=== PATIENT | female | born 1980 | race Caucasian/White ===

== ENCOUNTER 2023-07-17 15:57 | Outpatient (REF) | payer OTHER, SELFPAY ==
--- OUTSIDE RECORDS SUMMARY | 2023-09-03 10:31 | XMS_ITS | CCD ---
Author Organization [facility] ion Partnership [facility] Care Team Providers Care Brief Writer Name Role Phone Alden Breaux Primary Care Provider [phone] SHIRLEY KING Referring Unavailable ALDEN BREAUX Primary Care Unavailable DYLAN PRUITT Admitting Unavailab DYLAN Meade Attending Unavailab ALDEN Pinzon Primary Care Unavailable WILDER ORTIZ V Admitting Unavailable WILDER ORTIZ V Attending Unavailable ALDEN BREAUX Primary Care Unavailable MISC, DOCTOR Admitting Unavailable MISC, DOCTOR Consulting Unavailable MISC, DOCTOR Attending Unavailable ALDEN BREAUX Primary Care Unavailable Latoya Beck Unavailable Alden Breaux MD Primary Care Provider LULA SHARPE Attending Unavailable ALDEN BREAUX Primary Care Unavailable DENG BALLARD Attending Unavailable DENG BALLARD Attending Unavailable NO FAMILY, PHYSICIAN Primary Care Provider Unava ilable Deng Ballard Attending Provider ElioEtienne jonesy Admitting Unavailable Deng Ballard Attending Unavailable NO FAMILY, PHYSICIAN Primary Care Unavailable Deng Ballard Attending Unavailable Etienne Ballardy Admitting Unavailable Allergies Allergy Classification Reported Allergen(s) Allergy Type Date of Onset Reaction(s) Facility (4 sources) Acetaminophen / oxyCODONE Drug Allergy 1 [place] (7 sources) Cephalexin Drug Allergy 0 Hives, Itching, Swelling [place] (7 sources) Codeine Drug Allergy 0 Nausea [place] Vomiting [place] (4 sources) Penicillins Propensity to adverse reactions to drug 0 Other (See Comments) [place] (4 sources) Propoxyphene Drug Allergy 0 Nausea [place] Vomiting [place] (1 source) Cephalexin Drug Allergy [facility] Repository (1 source) Codeine Drug Allergy [facility] (1 source) Penicillin Drug Allergy [facility] (1 source) Darvocet-N 100 Drug allergy (disorder) [facility] Rep[facility] (4 sources) Penicillin G Benzathine; Translations: [penicillin G benzathine] Drug allergy 1 [facility] (1 source) Cephalexin Drug Allergy 1 [facility] Repository (1 source) Codeine Drug Allergy 1 [facility] Repository Medications Current Medications Medication Drug [...] % 150 mL with bupivacaine-EPINEPHrine (MARCAINE-w/EPINEPHRINE) 0.5% -1:[id number] 40 mL, lidocaine-EPINEPHrine 50 mL (1 source) Start: 03-31-2020 End: 03-31-2020 sodium chloride 0.9 % 150 mL with bupivacaine-EPINEPHrine (MARCAINE-w/EPINEPHRINE) 0.5% -1:566696 40 mL, lidocaine-EPINEPHrine 50 mL Problems Active [...] Test Name Value Interpretation Reference Range Facility [facility] 07-27-2023 L Specimen: [id number] Received: 07/31/23 Status: KEREN Bonilla Num: [id number] Spec Type: Surgical Subm Dr: Deng Balalrd Tissues: A Fallopian Tube - Sterilization (BILATERAL FT/ESSURE COILS) Procedures: HE/2, Gross/Micro L2 Age/ Patient Sex Location Account Attending Physician ArturoMonika 42/F [place] [id number] Deng Ballard SPEC NUM: [id number] RECD: 07/31/23 STATUS: KEREN BONILLA NUM: [id number] DWAYNE: 07/27/[address]: Deng Ballard ENTERED: 07/31/[address] [facility] DR: Antony,Lab SPEC TYPE: Surgical DEPT: AMBER ELIAS ORDERED: HE/2, Gross/Micro L2 ORDERED: HE/2, Gross/Micro L2 Pathological Diagnosis Bilateral fallopian tubes, bilateral salpingectomy: -Bilateral fimbriated fallopian tubes without significant histopathological changes, except occasional small Walthard cysts in both tubes, and also with 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 Gross Description Received in formalin labeled with the patient's name, date of and bilateral fallopian tubes and Essure coils are 2 undesignated, fimbriated fallopian tubes (arbitrarily assigned as #1 and #2). Tube #1 is previously fragmented and collectively measures 6.7 cm in length and ranges from 0.5 to 1.0 cm in diameter. Tube #2 is intact and measures 5.7 cm in length and ranges from 0.5 to 0.7 cm in diameter. The serosal surface is paez-purple, smooth and contains multiple paratubal cysts ranging from 0.1 to 0.2 cm. 2 Essure coils are present, 1 within the lumen of the tube #2 and 1 free-floating within the specimen container ranging from 2.5 cm in length to less than 0.1 cm in diameter. Sectioning into each tube demonstrates an intact luminal center lined by paez mucosa. Garden Center Manager sections are submitted in A1 (tube 1) and A2 (tube #2). ---- Specimen: [id number] Received: 07/31/23 Status: KEREN Bonilla Num: [id number] Spec Type: Surgical Subm Dr: Deng Ballard Tissues: A Fallopian Tube - Sterilization (BILATERAL FT/ESSURE COILS) Procedures: HE/2, Gross/Micro L2 ---- Patient: Monika Morris [id number] (Continued) ---- Specimen: [id number] Received: 07/31/23 (Continued) Gross Description (Continued) Signed (signature on file) Chin-Adolfo Prasad, MD 08/01/23 1854 ---- Specimen: [id number] Received: 07/31/23 Status: KEREN Bonilla Num: [id number] Spec Type: Surgical Subm Dr: Deng Ballard Tissues: A Fallopian Tube - Sterilization (BILATERAL FT/ESSURE COILS) Procedures: HE/2, Gross/Micro L2 ---- Patient: Monika Morris [id number] (Continued) ---- Specimen: [id number] Received: 07/31/23 (Continued) Gross Description (Continued) TW CPT Codes 84451, 19741 ---- ---- Specimen: [id number] Received: 07/31/23 Status: KEREN Bonilla Num: [id number] Spec Type: Surgical Subm Dr: Deng Ballard Tissues: A Fallopian Tube - Sterilization (BILATERAL FT/ESSURE COILS) Procedures: JOE/Shayy, Gross/Micro L2 ---- Patient: Monika Morris [id number] (Continued) ---- Signed (signature on file) Kiara Prasad MD 08/01/231853 Normal [facility] 07-17-2023 L Specimen: [id number] Received: 07/18/23 Status: KEREN Bonilla Num: [id number] Spec Type: Surgical Subm Dr: Deng Ballard Tissues: A Endometrium - Biopsy (EMBX) Procedures: HE/2, Gross/Micro L4 Age/ Patient Sex Location Account Attending Physician Monika Morris 42/F [place] [id number] Deng Ballard SPEC NUM: [id number] RECD: 07/18/23 STATUS: KEREN BONILLA NUM: [id number] DWAYNE: 07/17/23 DR: Deng Ballard ENTERED: 07/18/23-8 [facility] [address]: Antony,Lab SPEC TYPE: Surgical DEPT: AMBER [...] history: Menorrhagia with irregular cycles CPT Codes 82847 ---- ---- Specimen: [id number] Received: 07/18/23 Status: KEREN Bonilla Num: [id number] Spec Type: Surgical Subm Dr: Deng Ballard Tissues: A Endometrium - Biopsy (EMBX) Procedures: HE/2, Gross/Micro L4 ---- Patient: Monika Morris [id number] (Continued) ---- Signed (signature on file) Criss Shirley MD 07/19/23 1419 Normal [facility] Provider Letteron 04-27-2023 Provider Letter April 27, 2023 MONIKA DURONFEE [address] [place] [address] : 1980 Dear Monika, We have been trying to reach you with no success. It is important that you return our call regarding your referral from Dr. Breaux to see Dr. Mcclain. Please call the office upon receiving this letter. Also, at the time of your call, please provide us with your current information. Thank you for your prompt attention to this matter. Sincerely, [facility] [phone] Normal [facility] Physician Referralon 024 Physician Referral [phone] [id number] Normal [facility] Basic Metabolic Profon 03-16 Anion gap [Moles/Vol] 7 mmol/L Low 9-17 [facility] Comment on above: Performed By: #### B DASH, KAYODE, HCG #### [facility] [address] [place] [address] Field Return Repairer: Wilder Galaviz MD BUN/CRE Ratio 35 High 9-20 [facility] Comment on above: Performed By: #### B DASH, CDP, HCG #### [facility] [address] [place] [address] Field Return Repairer: Wilder Galaviz MD Calcium [Mass/Vol] 9.3 mg/dL Normal 8.6-10.4 [facility] Comment on above: Performed By: #### B DASH CDP, HCG #### [facility] [address] [place], [place] [phone] Field Return Repairer: Wilder Galaviz MD Chloride [Moles/Vol] 101 mmol/L Normal 98-107 [facility] Comment on above: Performed By: #### B MP, CDP, HCG #### [facility] [address] [place] [address] Field Return Repairer: Wilder Galaviz MD CO2 [Moles/Vol] 26 mmol/L Normal 20-31 [facility] Comment on above: Performed By: #### B DASH CDP, HCG #### [facility] [address] [place], [place] [phone] Field Return Repairer: Wilder Galaviz MD Creatinine [Mass/Vol] 0.4 mg/dL Low 0.5-0.9 [facility] Comment on above: Performed By: #### B DASH CDP, HCG #### [facility] [address] [place], [place] [phone] Field Return Repairer: Wilder Galaviz MD GFR/1.73 sq M.predicted among non-blacks MDRD (S/P/Bld) [Vol rate/Area] mL/min/{1.73_m2} Normal >60 [facility] Comment on above: Result Comment: These results [...] renal tubular secretion. Performed By: #### B MP, CDP, HCG #### [facility] [address] [place], [place] [phone] Field Return Repairer: Wilder Galaviz MD Glucose [Mass/Vol] 99 mg/dL Normal 70-99 [facility] Comment on above: Performed By: #### B MP, CDP, HCG #### [facility] [address] [place], [place] [address]33[address] Field Return Repairer: Wilder Galaviz MD Potassium [Moles/Vol] 3.7 mmol/L Normal 3.7-5.3 [facility] Comment on above: Performed By: #### B MP, CDP, HCG #### [facility] [address] [place], [place] [address]197483 Field Return Repairer: Wilder Galaviz MD Sodium [Moles/Vol] 134 mmol/L Low 135-144 [facility] Comment on above: Performed By: #### B MP, CDP, HCG #### [facility] [address] [place], [place] [address] Field Return Repairer: Wilder Galaviz MD Urea nitrogen [Mass/Vol] 14 mg/dL Normal 6-20 [facility] Comment on above: Performed By: #### B MP, CDP, HCG #### [facility] [address] [place], [place] [address] Field Return Repairer: Wilder Galaviz MD CBC with Diffon 03-16-2023 Abs. Basophil 0.06 k/uL Normal 0.00-0.20 [facility] Comment on above: Performed By: #### B MP, CDP, HCG #### [facility] [address] [place] [address] Field Return Repairer: Wilder Galaviz MD Abs.Imm.Granulocy te <0.03 Normal 0.00-0.30 [facility] Comment on above: Performed By: #### B MP, CDP, HCG #### [facility] [address] [place], [place] [address] Field Return Repairer: Wilder Galaviz MD Abs.Neutrophil (Seg) 3.62 k/uL Normal 1.50-8.10 [facility] Comment on above: Performed By: #### B MP, CDP, HCG #### [address] [place], [place] [address] Field Return Repairer: Wilder Galaviz MD Basophils/100 WBC (Bld) 1 % Normal 0-2 [facility] Comment on above: Performed By: #### B MP, CDP, HCG #### [address] [place], [place] [address]783 Field Return Repairer: Wilder Galaviz MD Eosinophils (Bld) [#/Vol] 0.17 10*3/uL Normal 0.00-0.44 [facility] Comment on above: Performed By: #### B MP, CDP, HCG #### [address] [place], [place] [address] Field Return Repairer: Wilder Galaviz MD Eosinophils/100 WBC (Bld) 3 % Normal 1-4 [facility] Comment on above: Performed By: #### B DASH CDP, HCG #### [address] [place], [facility] Field Return Repairer: Wilder Galaviz MD Erythrocyte distribution width (RBC) [Ratio] 12.2 % Normal 11.8-14.4 [facility] Comment on above: Performed By: #### B DASH, CDP, HCG #### [address] [place], [facility]83 Field Return Repairer: Wilder Galaviz MD Hematocrit (Bld) [Volume fraction] 41.3 % Normal 36.3-47.1 [facility] Comment on above: Performed By: #### B MP, CDP, HCG #### [address] [place], [place] [address]83 Field Return Repairer: Wilder Galaviz MD Hemoglobin (Bld) [Mass/Vol] 13.6 g/dL Normal 11.9-15.1 [facility] Comment on above: Performed By: #### B MP, CDP, HCG #### [facility] [address] [place], [facility]83 Field Return Repairer: Wilder Galaviz MD Immature granulocytes/100 WBC (Bld) 0 % Normal 0 [facility] Comment on above: Performed By: #### B MP, CDP, HCG #### [address] [place], [place] [address] Field Return Repairer: Wilder Galaviz MD Lymphocytes (Bld) [#/Vol] 1.78 10*3/uL Normal 1.10-3.70 [facility] Comment on above: Performed By: #### B MP, CDP, HCG #### [address] [place] [id number] Field Return Repairer: Wilder Galaviz MD Lymphocytes/100 WBC (Bld) 28 % Normal 24-43 [facility] Comment on above: Performed By: #### B MP, CDP, HCG #### [address] [place], [facility]83 Field Return Repairer: Wilder Galaviz MD MCH (RBC) [Entitic mass] 30.8 pg Normal 25.2-33.5 [facility] Comment on above: Performed By: #### B MP, CDP, HCG #### [address] [place], [facility]83 Field Return Repairer: Wilder Galaviz MD MCHC (RBC) [Mass/Vol] 32.9 g/dL Normal 28.4-34.8 [facility] Comment on above: Performed By: #### B MP, CDP, HCG #### [address] [place] [address] Field Return Repairer: Wilder Galaviz MD MCV (RBC) [Entitic vol] 93.4 fL Normal 82.6-102.9 [facility] Comment on above: Performed By: #### B MP, CDP, HCG #### [facility] [address] [place], [place] [address] Field Return Repairer: Wilder Galaviz MD Monocytes (Bld) [#/Vol] 0.75 10*3/uL Normal 0.10-1.20 [facility] Comment on above: Performed By: #### B MP, CDP, HCG #### [facility] [address] [place], [place] [address] Field Return Repairer: Wilder Galaviz MD Monocytes/100 WBC (Bld) 12 % Normal 3-12 [facility] Comment on above: Performed By: #### B MP, CDP, HCG #### [address] [place], [place] [address] Field Return Repairer: Wilder Galaviz MD Neutrophil (Seg) 56 % Normal 36-65 [facility] Comment on above: Performed By: #### B MP, CDP, HCG #### [address] [place], [place] 3[address]683 Field Return Repairer: Wilder Galaviz MD NRBC Automated 0.0 per 100 WBC Normal 0.0 [facility] Comment on above: Performed By: #### B MP, CDP, HCG #### [address] [place], [place] [address] Field Return Repairer: Wilder Galaviz MD Platelet mean volume (Bld) [Entitic vol] 9.7 fL Normal 8.1-13.5 [facility] Comment on above: Performed By: #### B MP, CDP, HCG #### [address] [place], [place] [address]83 Field Return Repairer: Wilder Galaviz MD Platelets (Bld) [#/Vol] 372 10*3/uL Normal 138-453 [facility] Comment on above: Performed By: #### B MP, CDP, HCG #### [facility] [address] [place] [address] Dr[address] [place], [place] [address] Field Return Repairer: Wilder Galaviz MD RBC (Bld) [#/Vol] 4.42 10*6/uL Normal 3.95-5.11 [facility] Comment on above: Performed By: #### B MP, CDP, HCG #### [facility] [address] [place] [address] Field Return Repairer: Wilder Galaviz MD WBC (Bld) [#/Vol] 6.4 10*3/uL Normal 3.5-11.3 [facility] Comment on above: Performed By: #### B MP, CDP, HCG #### [facility] [address] [place], [place] [address]395383 Field Return Repairer: Wilder Galaviz MD CT ABDOMEN PELVIS W [...] is recommended. Bilateral contraceptive coils are noted. Peritoneum/Retroperito neum: No ascites or focal fluid collections. No [...] Kendall Rousseau MD 03/16/23 Final result Normal [facility] HCG Screen, Bloodon 03-16-19 HCG Screen, Blood Negative Normal NEG [facility] Comment on above: Result Comment: Spec imens with hCG levels near the threshold of the test (25 mIU/mL) may give a negative or indeterminate result. In such cases, another test should be performed with a new specimen in 48-72 hours. If early is suspected clinically in this setting, correlation with quantitative serum b-hCG level is suggested. [facility] has confirmed the use of plasma for this test. This has not been cleared or approved by the U.S. Food and Drug Administration. The FDA has determined that such clearance is not necessary. Performed By: #### B MP, CDP, HCG #### [facility] [address] [place] [address] Field Return Repairer: Wilder Galaviz MD XR FOOT RIGHT (MIN 3 VIEWS)o n 09-03-2021 No acute osseous or soft tissue abnormality. [facility] EXAMINATION: THREE XRAY VIEWS OF THE RIGHT FOOT 09/03/2021 11:36 am COMPARISON: None. HISTORY: ORDERING SYSTEM PROVIDED HISTORY: Pain FINDINGS: There is no acute osseous abnormality. The joint spaces are maintained. The surrounding soft tissues are unremarkable. [facility] Milton Garcia MD - 09/03/2021 EXAMINATION: THREE XRAY VIEWS OF THE RIGHT FOOT 09/03/2021 11:36 am COMPARISON: None. HISTORY: ORDERING SYSTEM PROVIDED HISTORY: Pain FINDINGS: There is no acute osseous abnormality. The joint spaces are maintained. The surrounding soft tissues are unremarkable. IMPRESSION: No acute osseous or soft tissue abnormality. [facility] Work Phone: Radiology Study observation (narrative) [facility] [employer] Work Phone: XR FOOT RIGHT (MIN 3 VIEWS)O rdered By: Milton Garcia on 09-03-2021 [facility] [employer] Work Phone: COVID Quick Testingon 2020 Result Negative [employer] Other POCT urine pregnancyon 03-31 Beta HCG ( test) Ql (U) Negative NEGATIVE [facility] [place] , [place] Comment on above: Specimens with hCG l evels near the threshold of the test (25 mIU/mL) may give a negative or indeterminate result. In such cases, another test should be performed with a new specimen in 48-72 hours. If early is suspected clinically in this setting, correlation with quantitative serum b-hCG level is suggested. TESTING PERFORMED AT [address] [address] Surgical Pathologyon 021 Surgical Pathology (NOTE) -- Diagnosis -- 1. RIGHT BREAST, REDUCTION MAMMOPLASTY:-BENIGN BREAST PARENCHYMA WITH FIBROCYSTIC CHANGES AND BENIGN SKIN.2. LEFT BREAST, REDUCTION MAMMOPLASTY:-BENIGN BREAST PARENCHYMA WITH FIBROCYSTIC CHANGES AND BENIGN SKIN. Wilder Galaviz M.D Electronically Signed Out chiqui/04/01/2020 Clinical Information Pre-op Diagnosis: BILATERAL MACROMASTIA Operative Findings: RIGHT BREAST; LEFT BREAST Operation Performed: BREAST MAMMOPLASTY REDUCTION Source of Specimen 1: RIGHT BREAST 2: LEFT BREAST Gross Description 1. MONIKA MORRIS, RIGHT BREAST Fragments of fibrofatty tissue and unremarkable paez skin, 552 grams and 17.0 x 16.0 x 5.0 cm in aggregate. Sectioning reveals no masses. Garden Center Manager sections 2cs. 2. STEFANIA MORRIS, LEFT BREAST Fragments of fibrofatty tissue and unremarkable paez skin, 1109 grams and 20.0 x 18.0 x 7.0 cm in aggregate. Sectioning reveals no masses. Garden Center Manager sections 2cs. tm Microscopic Description 1, 2. Microscopic examination performed. SURGICAL PATHOLOGY CONSULTATION Patient Name: MONIKA MORRIS [facility] Rec: [id number] Path Number: [id number] [facility] [employer] [facility] ANATOMIC PATHOLOGY [address] [place], [place] [address] Normal [facility] Comment on above: Performed By: #### P PPVS #### [address] [id number] Field Return Repairer: Brown Tatum MD [id number] 03-28-2020 SARS-CoV-2 Normal [facility] Comment on above: Performed By: #### C OVID #### [address] [address] Field Return Repairer: Brown Tatum MD SARS-CoV-2 Not Detected [facility] Comment on above: Result Comment: The specimen is NEGATIVE for SARS-CoV-2, the novel coronavirus associated with COVID-19. A negative result does not rule out COVID-19. Padmini SARS-CoV-2 for use on the Padmini [employer]88[employer] is a real-time RT-PCR test intended [...] this assay. Fact sheet for Healthcare Providers: https://www.fda.gov/media/984374/download Fact sheet for Patients: https://www.fda.gov/media/100697/download METHODOLOGY: RT-PCR Performed By: #### C OVID #### [address] [id number] Field Return Repairer: Brown Tatum MD SARS-CoV-2,Rapid Normal [facility] Comment on above: Performed By: #### C OVID #### [facility] [employer] [address] [place] [address] Field Return Repairer: Brown Tatum MD [id number] 03-27-2020 SARS-CoV-2 Source .NASOPHARYNGEAL SWAB Normal [facility] Comment on above: Performed By: #### C OVID #### [facility] [employer] [facility] [place], [place] [address]96[address] Field Return Repairer: Brown Tatum MD UA RANDOMon 03-22-2020 Bilirubin [Mass/Vol] Negative Normal NEGATIVE [facility] Comment on above: Performed By: #### U A #### [facility] [address] [place] [address] Liz Sylwia BLOOD LARGE Abnormal NEGATIVE [facility] Comment on above: Performed By: #### U A #### [facility] [address] [place] [address] Liz Sylwia Clarity (U) CLEAR Normal CLEAR [facility] Comment on above: Performed By: #### U A #### [facility] [address] [place] [address] Liz Sylwia Color (U) LT. YELLOW Normal YELLOW [facility] Comment on above: Performed By: #### U A #### [facility] [address] [place] [address] Liz Sylwia Glucose [Mass/Vol] Negative Normal NEGATIVE [facility] Comment on above: Performed By: #### U A #### [facility] [address] [place] [address] Liz Sylwia Ketones Ql (U) Negative Normal NEGATIVE [facility] Comment on above: Performed By: #### U A #### [facility] [address] [place] [address] Liz Sylwia Nitrite Ql (U) Negative Normal NEGATIVE [facility] Comment on above: Performed By: #### U A #### [facility] [address] [place] [address] Liz Sylwia pH (Bld) 6.0 Normal 5-9 [facility] Comment on above: Performed By: #### U A #### [facility] [address] [place], [place] [address] Liz Dao SPEC GRAVITY 1.020 Normal 1.005-<=1.025 [facility] Comment on above: Performed By: #### U A #### [facility] [address] [place], [place] [address] Liz Dao UA PROTEIN Negative Normal NEGATIVE/ TRACE [facility] Comment on above: Performed By: #### U A #### [facility] [address] [place], [place] [address] Liz Dao Urobilinogen Qn (U) 0.2 EU/dl Normal 0.2 - 1.0 [facility] Comment on above: Performed By: #### U A #### [facility] [address] [place], [place] [address] Liz Dao WBC (Bld) [#/Vol] Negative Normal NEGATIVE [facility] Comment on above: Performed By: #### U A #### [facility] [address] [place], [place] [address] Liz Dao Vital Signs Date Time Vital Sign Value Performing Clinician Facility 12-22-2020 12:15-0400 Body height 165.1 cm Latoya Ebony Other [facility] Other 12-22-2020 12:15-0400 Body mass index (BMI) [Ratio] 26.62 kg/m2 Latoya Ebony Other [facility] Other 12-22-2020 12:15-0400 Body temperature 100.5 [degF] Latoya Ebony Other [facility] Other 12-22-2020 12:15-0400 Body weight 72.58 kg Latoya Ebony Other [facility] Other 12-22-2020 12:15-0400 Respiratory rate 18 /min Latoya Ebony Other [facility] Other 12-22-2020 12:15-0400 SaO2% (BldA) [Mass fraction] 98 % Latoya Beck Other [facility] Other 03-31-2020 12:15-0500 BP Diastolic 94 mm[Hg] Dylan Edmond [place], [place] 03-31-2020 12:15-0500 BP Systolic 127 mm[facility]Hg] [facility] [place] 03-31-2020 12:15-0500 Pulse (Heart Rate) 80 /min [place], [place] 03-31-2020 12:15-0500 Pulse Oximetry 93 % [place], [place] 03-31-2020 11:17-0500 Body Temperature 97.81 [degF] [place] 03-31-2020 06:24-0500 Respiratory Rate 19 /min [facility] [place] 03-31-2020 06:10-0500 BMI (Body Mass Index) 29.95 kg/m2 [facility] [place] 03-31-2020 06:10-0500 Body weight 81.65 kg Dylan Edmond [place] 03-31-2020 06:10-0500 Height 165.1 cm [place], [place] Encounters Encounter Date Encounter Type Care Provider Facility Start: 07-27-2023 End: 07-27-2023 ambulatory Deng Elio Facility:[facility] Start: 07-27-2023 End: 07-27-[address] [facility] Work Phone: Start: 07-27-2023 End: 07-27-2023 Departed Referred PHYSICIAN NO [facility] Start: 07-17-2023 End: 07-17-2023 ambulatory DENG ELIO Not Available Start: 07-17-2023 End: 07-17-2023 ambulatory Deng Elio Facility:[facility] Start: 07-17-2023 End: 07-17-[address] [facility] Work Phone: Start: 07-17-2023 End: 07-17-2023 Departed Referred PHYSICIAN NO [facility] Start: 05-23-2023 End: 05-23-2023 ambulatory DENG BALLARD Not Available Start: 03-20-2023 ambulatory Facility:[facility] Start: 03-16-2023 End: 03-16-2023 Emergency department patient visit LUL[facility] Start: 04-22-2022 End: 05-10-2022 ambulatory Facility:[id number] Start: 03-29-2022 End: 04-12-2022 ambulatory Facility:[id number] Start: 09-03-2021 End: 09-05-2021 Subsequent hospital visit by physician Jack Arce Dr Room 4 [facility] Comment on above: Pain Start: 12-22-2020 (URG) Urgent Care Visit Latoya trujillo [facility] Start: 07-01-2020 Patient encounter procedure WILDER ORTIZ Facility:[facility] Start: 03-31-2020 End: 03-31-2020 Patient encounter procedure DYLAN PRUITT [facility] Start: 03-31-2020 End: 03-31-2020 Subsequent hospital visit by physician Dylan Pruitt Work Phone: [facility] [place] Comment on above: Acute post-operative pain (Primary Dx) Start: 03-27-2020 End: 03-28-2020 Patient encounter procedure SHIRLEY KING [facility] Start: 03-27-2020 End: 03-27-2020 Subsequent hospital visit by physician Juan Luis Garcíaid Screening Schedule CZ Covid Screening Comment on above: Preop testing (Prima ry Dx) Start: 03-26-2020 Encounter for other preprocedural examination WILDER ORTIZ [facility] Start: 03-22-2020 End: 03-23-2020 Patient encounter procedure DOCTOR VIVIAN Facility:[facility] Encounter for other preprocedural examination [facility] Procedures Date Procedure Procedure Detail Performing Clinician Start: 09-03-2021 Radex foot complete minimum 3 views Nadeen Rodriguez APRN - DENIS Work Phone: Start: 03-31-2020 Urine test visual color cmprsn meths Dylan Pruitt Work Phone: Plan of Treatment Date Care Activity Detail Author Start: 11-10-2021 Influenza vaccination [facility] ine (Season Ended[facility] [employer] Start: 04-05-2020 End: 04-05-2020 Office Visit 04/05/2020 Office Visit Plastic Surgery Dylan Pruitt MD [address] [id number] [facility] Start: 03-31-2020 End: 03-31-2020 Hospital Encounter [facility] [place] Comment on above: BREAST MAMMOPLASTY R EDUCTION Start: 03-27-2020 End: 03-26-2021 COVID-19 [place] Comment on above: Expected: 03/27/2020 , Expires: 03/26/2021 Once for 1 Occurrenc es starting 03/27/2020 until 03/27/2020 Start: 11-11-2019 Influenza vaccination Flu vaccine (# 1) [place] Start: 09-20-2011 Screening for malign ant neoplasm of cervix [facility] Start: 2002 Screening for malign ant neoplasm of cervix [facility] Start: 2000 DTaP/Tdap/Td vaccine (1 - Tdap) DTaP/Tdap/Td vaccine (1 - Tdap) [facility] Start: 09-20-1999 Hepatitis C screening Hepatitis C sc reen [facility] Start: 1996 HIV screening HIV screen [facility] [employer] Start: 1993 Depression Screen Depression Screen [facility] Start: 1986 COVID-19 Vaccine (1) COVID-19 Vaccin e (1) [facility] Start: 1982 Varicella vaccine (1 of 2 - 2-dose childhood series) Varicella vaccine (1 of 2 - 2-dose childhood series) [facility] Start: 1981 Hepatitis C screening Hepatitis C sc reen [place] End: 03-31-2020 Blood glucose - POCT Blood glucose - POCT Point of Care Testing Routine One Time for 1 Occurrences starting 03/31/2020 until 03/31/2020 [place], [place] Comment on above: One Time for 1 Occur rences starting 03/31/2020 until 03/31/2020 COVID-19 COVID-19 Lab Rou david 03/27/2020 1:13 PM EST [place], [place] Oxygen therapy [[facility] Data Set] Initiate Oxygen Therapy Protocol Respiratory Care Routine Daily until discontinued starting 03/31/2020 [place] Comment on above: Daily until disconti nued starting 03/31/2020 Phase I & II - meter ed glucose Phase I & II - metered glucose Point of Care Testing Routine As Needed until discontinued starting 03/31/2020 [place] Comment on above: As Needed until disc ontinued starting 03/31/2020 End: 03-31-2020 , urine POCT , urine POCT Point of Care Testing Routine One Time for 1 Occurrences starting 03/31/2020 until 03/31/2020 [place] Comment on above: One Time for 1 Occur rences starting 03/31/2020 until 03/31/2020 Surgical Pathology Surgical Path ology Lab Routine Release Upon Ordering for 1 Occurrences starting 03/31/2020 [place] Comment on above: Release Upon Orderin g for 1 Occurrences starting 03/31/2020 Payers Date Payer Category Payer Unknown [id number] [id number] 1981 Unknown [id number] [id number] 1981 Unknown [id number] 2.16.84 [id number] 1981 Unknown [id number] 2.16.84 [id number] 1981 Unknown [id number] 2.16.8 [id number] 1981 Unknown [id number] 2.16.84 [id number] 1981 Unknown [id number] 2.16.84 [id number] 1959 Private Health Insurance [id number] 1959 Self-pay Private Health Insurance [id number] Unknown [id number] 2.16.8 [id number] Unknown [id number] 2.16.8 [id number] Social History Date Type Detail Facility Start: 03-22-2020 End: 03-31-2020 Tobacco smoking status NHIS Former sm[place] Start: 07-18-2023 End: 12-30-2019 History of tobacco use Current [place] End: 12-30-2019 History of tobacco use Cigarette Smoker [place] Start: 03-22-2020 End: 03-31-2020 Cigarettes smoked current (pack per day) - Reported [place] Start: 03-22-2020 End: 03-31-2020 Tobacco use and exposure Never used [place] Start: 03-31-2020 End: 05-05-2020 Alcohol intake Current drinker of alcohol (finding) [place] Start: 11-25-2019 History SDOH Alcohol Frequency 3 [place] Start: 03-31-2020 Alcohol Comment social [place], [place] Start: 1980 Sex Assigned At Not on file [place] Exposure to SARS-CoV -2 (event) Not sure [place] Sex Assigned At Sex Assigned At Bir th [facility] Other Start: 03-31-2020 History SDOH Alcohol Comment social [employer] Phone: Start: 1980 Sex Assigned At Female F [facility] Evaluation note 12-22-2020 Note Date & Type [...] Patient care instructions given in writting by [facility] At Home document. Additional time spent conducting pre-visit phone call, screening for symptoms, instructions on social distancing, application and removal of PPE, and cleaning of examination room, equipment and supplies was preformed. Patient education given for testing methodology and results. Patient care instructions given in writting by [facility] Care At Home document. [facility] Other Evaluation note Note Date & Type Note Facility Evaluation note Diagnosis Pain Generalized pain documented in this encounter [facility] [employer] Phone: Evaluation note Note Date & Type Note Facility Evaluation note No assessment information availa [facility] Work Phone: History general Narrative - Reported Note Date & Type Note Facility History general Narrative - Reported Type Medical History chronic depression Surgical History C section Surgical History tonsillectomy Surgical History essure [facility] Other Discharge Instructions * Instructions* Terra Yatse RN - 03/31/2020 Breast Reduction and/or Mastopexy [...] ad fiber intake. You may also take [id number] stool softener. We have found that 2 [...] at the surgery center (3rd entrance) on ___[id number] by ___[phone] . Please stop any blood thinning medications [...] drive you home after your procedure. Your oil transport driver must be 18 years of age [...] Documents on File Type Date Recorded Patient Garden Center Manager Expl anation ACP-Advance Directive ACP-Power of Help Desk Associate Documents on File Type Date Recorded Patient Garden Center Manager Expl anation ACP-Advance Directive ACP-Power of Help Desk Associate Advance Directive Response Recorded Date/ Time Advance [...] To Contact Diagnoses Macromastia BILATERAL MACROMASTIA Procedures CA BREAST REDUCTION BREAST MAMMOPLASTY REDUCTION Dylan Pruitt MD [address] [place] [address] [facility] Ordered Prescriptions (unrec ognized section and [...] section and content) DATE CREATED AUTHOR 04/01/2020 [facility] DATE CREATED AUTHOR AUTHOR'S ORGANIZ ATION 04/02/2020 [facility] DATE CREATED AUTHOR AUTHOR'S ORGANIZ ATION 06/23/2020 [facility] DATE CREATED AUTHOR AUTHOR'S ORGANIZ ATION 05/11/2022 [facility] DATE CREATED AUTHOR AUTHOR'S ORGANIZ ATION 03/17/2023 [facility] DATE CREATED AUTHOR AUTHOR'S ORGANIZ ATION 04/29/2023 [place] [facility] DATE CREATED AUTHOR AUTHOR'S ORGANIZ ATION 07/19/2023 [facility] Special[facility] DATE CREATED AUTHOR AUTHOR'S ORGANIZ ATION 08/01/2023 [facility] Care Teams (unrecognized sec tion and content) Brief Writer Relationship Specialty Start Date End Date Alden Breaux MD [address] [address] PCP - General Family Medicine 03/24/20 Brief Writer Relationship Specialty Start Date End Date Alden Breaux MD [address] [id number] PCP - General Family Medicine 03/24/20 Team Status: Active Member Role Status Dates PHYSICIAN NO FAMILY Primary Care Provider Active Team Status: Inactive Member Role Status Dates PHYSICIAN NO FAMILY Primary Care Provider Active Start: July 17, 2023 End: July 17, 2023 Deng Ballard Attending Provider Active Start: Gutierrez degroot 2023 End: July 17, 2023 Team Status: Inactive Member Role Status Dates Deng Ballard Attending Provider Active Start: Gutierrez degroot 2023 End: July 27, 2023 Goals (unrecognized section and content) Goals [...] BE BASED ON THE PRIMARY CLINICAL RECORDS. [employer] provides no warranty or guarantee of the accuracy or completeness of information in this document.
== END 2023-07-19 15:58 | disposition home or self-care (01) ==
LOC: LAB 15:57
PROVIDERS: Visit Provider Obstetrics & Gynecology
DX: N92.1 Excessive and frequent menstruation with irregular cycle (principal); N85.8 Other specified noninflammatory disorders of uterus
CPT/HCPCS: 88305

== ENCOUNTER 2023-07-23 10:53 | Outpatient (OUT) | payer OTHER, SELFPAY ==
--- OUTSIDE RECORDS SUMMARY | 2023-07-23 11:16 | XMS_ITS | CCD ---
Author Organization [facility] Care Team Providers Care Insurance Follow Up Rep Name Role Phone Alden Meléndez Primary Care Provider SHIRLEY KING Referring Unavailable ALDEN MELÉNDEZ Primary Care Unavailable DYLAN PRUITT Admitting Unavailab DYLAN Meade Attending Unavailab ALDEN Pinzon Primary Care Unavailable WILDER ORTIZ V Admitting Unavailable WILDER ORTIZ V Attending Unavailable ALDEN MELÉNDEZ Primary Care Unavailable MISC, DOCTOR Admitting Unavailable MISC, DOCTOR Consulting Unavailable MISC, DOCTOR Attending Unavailable ALDEN MELÉNDEZ Primary Care Unavailable Latoya Beck Unavailable Alden Meléndez MD Primary Care Provider LULA SHARPE Attending Unavailable ALDEN MELÉNDEZ Primary Care Unavailable DENG BALLARD Attending Unavailable DENG BALLARD Attending Unavailable NO FAMILY, PHYSICIAN Primary Care Unavailable Deng Ballard Attending Unavailable Deng Ballard Admitting Unavailable NO FAMILY, PHYSICIAN Primary Care Provider Unava ilable Deng Ballard Attending Provider [phone] Allergies Allergy Classification Reported Allergen(s) Allergy Type Date of Onset Reaction(s) Facility (4 sources) Acetaminophen / oxyCODONE Drug Allergy 1 [place], [place] (6 sources) Cephalexin Drug Allergy 0 Hives, Itching, Swelling [place], [place] (6 sources) Codeine Drug Allergy 0 Nausea And Vomiting [place], [place] (4 sources) Penicillins Propensity to adverse reactions to drug 0 Other (See Comments) [place] (4 sources) Propoxyphene Drug Allergy 0 Nausea And Vomiting [facility], [place] (1 source) Cephalexin Drug Allergy [facility] (1 source) Codeine Drug Allergy [facility] (1 source) Penicillin Drug Allergy [facility] (1 source) Darvocet-N 100 Drug allergy (disorder) [facility] (3 sources) Penicillin G Benzathine; Translations: [penicillin G benzathine] Drug allergy 1 swelled [facility] (1 source) Cephalexin Drug Allergy 1 [facility] (1 source) Codeine Drug Allergy 1 [facility] Medications Current Medications Medication Drug Class(es) Dates Sig (Normalized) Sig (Original) acetaminophen 325 mg / HYDROcodone bitartrate 5 mg oral tablet (3 sources) Opioid Agonist Start: 03-31-2020 End: 04-07-2020 take 1 tablet by mouth every six hours as needed for pain, then take 1 tablet by mouth as needed for pain HYDROcodone-aceta minophen (NORCO) 5-325 MG per tablet Indications: Acute post-operative pain Take 1 tablet by mouth every 6 hours as needed for Pain for up to 7 days. Intended supply: 7 days. Take lowest dose possible to manage pain 28 tablet 0 03/31/2020 04/07/2020 Active Start: 11-06-2019 End: 03-31-2020 take 1 tablet by mouth three times daily as needed HYDROcodone-acetaminophen (NORCO) 10-325 MG per tablet TAKE 1 TABLET BY MOUTH THREE TIMES DAILY NEEDED 0 11/06/2019 03/31/2020 Discontinued (Stop Taking at Discharge) ALPRAZolam 0.5 mg oral tablet (4 sources) Benzodiazepine Start: 11-03-2019 take 1 tablet by mouth three times daily as needed ALPRAZolam (XANAX) 0.5 MG tablet TAKE 1 TABLET BY MOUTH THREE TIMES DAILY NEEDED 0 11/03/2019 Active 24 hr buPROPion hydrochloride 300 mg extended release oral tablet (5 sources) Aminoketone take 1 tablet by mouth once daily buPROPion (WELLBUTRIN XL) 300 MG extended release tablet Take 300 mg by mouth daily 0 Active Wellbutrin Activ e calcium chloride 0.0014 meq/ml / potassium chloride 0.004 meq/ml / sodium chloride 0.103 meq/ml / sodium lactate 0.028 meq/ml injectable solution (1 source) Start: 03-31-2020 lactated ringers infusion ciprofloxacin 500 mg oral tablet (1 source) Quinolone Antimicrobial Start: 03-31-2020 End: 04-05-2020 take 1 tablet by mouth twice daily ciprofloxacin (CIPRO) 500 MG tablet Take 1 tablet by mouth 2 times daily for 5 days 10 tablet 0 03/31/2020 04/05/2020 Active 1 ml diphenhydrAMINE hydrochloride 50 mg/ml cartridge (1 source) Histamine-1 Receptor Antagonist Start: 03-31-2020 End: 03-31-2020 diphenhydrAMINE (BENADRYL) injection 12.5 mg 2 ml fentaNYL 0.05 mg/ml injection (1 source) Opioid Agonist Start: 03-31-2020 fentaNYL (SUBLIMAZE) injection 25 mcg 1 ml hydrALAZINE hydrochloride 20 mg/ml injection (1 source) Arteriolar Vasodilator Start: 03-31-2020 hydrALAZINE (APRESOLINE) injection 5 mg 1 ml HYDROmorphone hydrochloride 1 mg/ml cartridge (1 source) Opioid Agonist Start: 03-31-2020 HYDROmorphone (DILAUDID) injection 0.5 mg ibuprofen 800 mg oral tablet (4 sources) Nonsteroidal Anti-inflammatory Drug Start: 10-30-2019 take 1 tablet by mouth three times daily as needed ibuprofen (ADVIL;MOTRIN) 800 MG tablet TAKE 1 TABLET BY MOUTH THREE TIMES DAILY NEEDED 0 10/30/2019 Active 1 ml meperidine hydrochloride 50 mg/ml injection (1 source) Opioid Agonist Start: 03-31-2020 meperidine (DEMEROL) injection 12.5 mg 30 ml morphine sulfate 1 mg/ml injection (1 source) Opioid Agonist Start: 03-31-2020 morphine (PF) injection 1 mg 1 ml promethazine hydrochloride 25 mg/ml injection (1 source) Phenothiazine Start: 03-31-2020 End: 03-31-2020 promethazine (PHENERGAN) injection 6.25 mg 1000 ml sodium chloride 9 mg/ml injection (3 sources) Start: 03-31-2020 0.9 % sodium chloride infusion Start: 03-31-2020 sodium chlorid e flush 0.9 % injection 10 mL Completed/Discontinued Medications Medication Drug Class(es) Dates Sig (Normalized) Sig (Original) gentian bridger 10 mg/ml topical solution (1 source) Start: 03-31-2020 End: 03-31-2020 gentian bridger 1 % topical solution 2 ml ondansetron 2 mg/ml injection (4 sources) Serotonin-3 Receptor Antagonist Start: 03-31-2020 End: 03-31-2020 ondansetron (ZOFRAN) injection 4 mg Start: 03-23-2020 take 1 tablet by andreas th once daily as needed for nausea ondansetron (ZOFRAN) 4 MG tablet Take 1 tablet by mouth daily as needed for Nausea or Vomiting 30 tablet 0 03/23/2020 Active sodium chloride 0.9 % 150 mL with bupivacaine-EPINEPHrine (MARCAINE-w/EPINEPHRINE) 0.5% -1:059850 40 mL, lidocaine-EPINEPHrine 50 mL (1 source) Start: 03-31-2020 End: 03-31-2020 sodium chloride 0.9 % 150 mL with bupivacaine-EPINEPHrine (MARCAINE-w/EPINEPHRINE) 0.5% -1:072979 40 mL, lidocaine-EPINEPHrine 50 mL Problems Active Problems Problem Classification Problem Date Documented Da te Episodic/Chronic Abdominal pain (1 source) Generalized abdominal pain; Translations: [Generalized abdominal pain] Onset: 03-16-2023 Episodic Nausea and vomiting (1 source) Nausea with vomiting, unspecified; Translations: [Nausea with vomiting, unspecified] Onset: 03-16-2023 Episodic Nonmalignant breast conditions (1 source) Mastodynia; Translations: [MASTODYNIA] Onset: 03-26-2020 Episodic Other gastrointestinal disorders (1 source) Diarrhea, unspecified; Translations: [Diarrhea, unspecified] Onset: 03-16-2023 Episodic Other nervous system disorders (1 source) Acute postoperative pain; Translations: [Acute post-operative pain] Episodic Residual codes; unclassified (1 source) Pain; Translations: [Pain, unspecified] Episodic Unclassified (1 source) Patient encounter status; Translations: [Preop testing] Past or Other Problems Problem Classification Problem Date Documented Da te Episodic/Chronic Immunizations and screening for infectious disease (1 source) Contact with and (suspected) exposure to other viral communicable diseases; Translations: [Contact with and (suspected) exposure to other viral communicable diseases Z20.828] Onset: 12-22-2020 Resolved: 12-22-2020 Episodic Other upper respiratory infections (1 source) Acute upper respiratory infection, unspecified; Translations: [Viral upper respiratory illness J06.9] Onset: 12-22-2020 Resolved: 12-22-2020 Episodic Results Test Name Value Interpretation Reference Range Facility [facility] 07-17-2023 L Specimen: [id number] Received: 07/18/23 Status: KEREN Dietrichandrei Num: [id number] Spec Type: Surgical Subm Dr: Deng Ballard Tissues: A Endometrium - Biopsy (EMBX) Procedures: HE/2, Gross/Micro L4 Age/ Patient Sex Location Account Attending Physician Monika Morris 42/F LABELL [id number] Deng Ballard SPEC NUM: [id number] RECD: 07/18/23 STATUS: KEREN DIETRICHAndrei NUM: [id number] DWAYNE: 07/17/[address]: Deng Ballard ENTERED: 07/18/23 [facility] DR: Antony,Lab SPEC TYPE: Surgical DEPT: AMBER ELIAS ORDERED: HE/2, Gross/Micro L4 ORDERED: HE/2, Gross/Micro L4 Pathological Diagnosis Endometrium, biopsy: Secretory endometrium. Gross Description Received in formalin, labeled with the patient's name, date of and embx are multiple paez tissue fragments admixed with mucus measuring in aggregate 2.1 x 1.5 x 0.3 cm, entirely submitted in A1. Clinical history: Menorrhagia with irregular cycles CPT Codes 98846 -------- -------- Specimen: [id number] Received: 07/18/23 Status: KEREN Bonilla Num: [id number] Spec Type: Surgical Subm Dr: Deng Ballard Tissues: A Endometrium - Biopsy (EMBX) Procedures: HE/2, Gross/Micro L4 -------- Patient: Monika Morris [id number] (Continued) -------- Signed (signature on file) Criss Shirley MD 07/19/23 1419 Normal [facility] Provider Letteron 04-27-2023 Provider Letter April 27, 2023 MONIKA MORRIS [address] [place] [address] : 1980 Dear Monika, We have been trying to reach you with no success. It is important that you return our call regarding your referral from Dr. Meléndez to see Dr. Mcclain. Please call the office upon receiving this letter. Also, at the time of your call, please provide us with your current information. Thank you for your prompt attention to this matter. Sincerely, [facility] [phone] Normal [facility] Physician Referralon 024 Physician Referral [phone] 1 [id number] Normal [facility] Basic Metabolic Profon 03-16 Anion gap [Moles/Vol] 7 mmol/L Low 9-17 [facility] Comment on above: Performed By: #### B MP, CDP, HCG #### [facility] [address] [place], [place] [phone] Proof Technician: Wilder Galaviz MD BUN/CRE Ratio 35 High 9-20 [facility] Comment on above: Performed By: #### B MP, CDP, HCG #### [facility] [address] [place], [place] [phone] Proof Technician: Wilder Galaviz MD Calcium [Mass/Vol] 9.3 mg/dL Normal 8.6-10.4 [facility] Comment on above: Performed By: #### B MP, CDP, HCG #### [facility] [address] [place], [place] [phone] Proof Technician: Wilder Galaviz MD Chloride [Moles/Vol] 101 mmol/L Normal 98-107 [facility] Comment on above: Performed By: #### B MP, CDP, HCG #### [facility] [address] [place] [address] Proof Technician: Wilder Galaviz MD CO2 [Moles/Vol] 26 mmol/L Normal 20-31 [facility] Comment on above: Performed By: #### B MP, CDP, HCG #### [facility] [address] [place], [place] [phone] Proof Technician: Wilder Galaviz MD Creatinine [Mass/Vol] 0.4 mg/dL Low 0.5-0.9 [facility] Comment on above: Performed By: #### B MP, CDP, HCG #### [facility] [address] [place], [place] [phone] Proof Technician: Wilder Galaviz MD GFR/1.73 sq M.predicted among non-blacks MDRD (S/P/Bld) [Vol rate/Area] mL/min/{1.73_m2} Normal >60 [facility] Comment on above: Result Comment: These results are not intended for use in patients <18 years of age. eGFR results are calculated without a race factor using the 2020 CKD-EPI equation. Careful clinical correlation is recommended, particularly when comparing to results calculated using previous equations. The CKD-EPI equation is less accurate in patients with extremes of muscle mass, extra-renal metabolism of creatine, excessive creatine ingestion, or following therapy that affects renal tubular secretion. Performed By: #### B KAYODE BOWLING, HCG #### [facility] [address] [place] [address] [place] [address] Proof Technician: Wilder Galaviz MD Glucose [Mass/Vol] 99 mg/dL Normal 70-99 [facility] Comment on above: Performed By: #### B DASH CDP, HCG #### [facility] [address] [place] [address] [place] [address] Proof Technician: Wilder Galaviz MD Potassium [Moles/Vol] 3.7 mmol/L Normal 3.7-5.3 [facility] Comment on above: Performed By: #### B DASH CDP, HCG #### [address] [place] [address] Proof Technician: Wilder Galaviz MD Sodium [Moles/Vol] 134 mmol/L Low 135-144 [facility] Comment on above: Performed By: #### B DASH CDP, HCG #### [facility] [address] [place] [address] Proof Technician: Wilder Galaviz MD Urea nitrogen [Mass/Vol] 14 mg/dL Normal 6-20 [facility] Comment on above: Performed By: #### B DASH, CDP, HCG #### [facility] [address] [place] [address] Proof Technician: Wilder Galaviz MD CBC with Diffon 03-16-2023 Abs. Basophil 0.06 k/uL Normal 0.00-0.20 [facility] Comment on above: Performed By: #### B MP, CDP, HCG #### [facility] [address] [place], [place] [phone] Proof Technician: Wilder Galaviz MD Abs.Imm.Granulocyt e <0.03 Normal 0.00-0.30 [facility] Comment on above: Performed By: #### B MP, CDP, HCG #### [facility] [address] [place], [place] [phone] Proof Technician: Wilder Galaviz MD Abs.Neutrophil (Seg) 3.62 k/uL Normal 1.50-8.10 [facility] Comment on above: Performed By: #### B MP, CDP, HCG #### [facility] [address] [place] [address] Dr[place], [place] [address] Proof Technician: Wilder Galaviz MD Basophils/100 WBC (Bld) 1 % Normal 0-2 [facility] Comment on above: Performed By: #### B MP, CDP, HCG #### [address] [place] [address] Proof Technician: Wilder Galaviz MD Eosinophils (Bld) [#/Vol] 0.17 10*3/uL Normal 0.00-0.44 [facility] Comment on above: Performed By: #### B MP, CDP, HCG #### [facility] [address] [place] [address] Proof Technician: Wilder Galaviz MD Eosinophils/100 WBC (Bld) 3 % Normal 1-4 [facility] Comment on above: Performed By: #### B MP, CDP, HCG #### [facility] [address] [place], [place] [phone] Proof Technician: Wilder Galaviz MD Erythrocyte distribution width (RBC) [Ratio] 12.2 % Normal 11.8-14.4 [facility] Comment on above: Performed By: #### B MP, CDP, HCG #### [facility] [address] [place], [place] [phone] Proof Technician: Wilder Galaviz MD Hematocrit (Bld) [Volume fraction] 41.3 % Normal 36.3-47.1 [facility] Comment on above: Performed By: #### B MP, CDP, HCG #### [facility] [address] [place], [place] [phone] Proof Technician: Wilder Galaviz MD Hemoglobin (Bld) [Mass/Vol] 13.6 g/dL Normal 11.9-15.1 [facility] Comment on above: Performed By: #### B MP, CDP, HCG #### [address] [place], [facility] Proof Technician: Wilder Galaviz MD Immature granulocytes/100 WBC (Bld) 0 % Normal 0 [facility] Comment on above: Performed By: #### B DASH, CDP, HCG #### [address] [place], [place] [phone] Proof Technician: Wilder Galaviz MD Lymphocytes (Bld) [#/Vol] 1.78 10*3/uL Normal 1.10-3.70 [facility] Comment on above: Performed By: #### B MP, CDP, HCG #### [facility] [address] [place], [place] [phone] Proof Technician: Wilder Galaviz MD Lymphocytes/100 WBC (Bld) 28 % Normal 24-43 [facility] Comment on above: Performed By: #### B MP, CDP, HCG #### [facility] [address] [place], [place] [address] Proof Technician: Wilder Galaviz MD MCH (RBC) [Entitic mass] 30.8 pg Normal 25.2-33.5 [facility] Comment on above: Performed By: #### B MP, CDP, HCG #### [facility] [address] [place], [place] [phone] Proof Technician: Wilder Galaviz MD MCHC (RBC) [Mass/Vol] 32.9 g/dL Normal 28.4-34.8 [facility] Comment on above: Performed By: #### B MP, CDP, HCG #### [facility] [address] [place] [address] Proof Technician: Wilder Galaviz MD MCV (RBC) [Entitic vol] 93.4 fL Normal 82.6-102.9 [facility] Comment on above: Performed By: #### B MP, CDP, HCG #### [address] [place], [place] [phone] Proof Technician: Wilder Galaviz MD Monocytes (Bld) [#/Vol] 0.75 10*3/uL Normal 0.10-1.20 [facility] Comment on above: Performed By: #### B MP, CDP, HCG #### [address] [place], [place] [phone] Proof Technician: Wilder Galaviz MD Monocytes/100 WBC (Bld) 12 % Normal 3-12 [facility] Comment on above: Performed By: #### B MP, CDP, HCG #### [facility] [address] [place], [place] [phone] Proof Technician: Wilder Galaviz MD Neutrophil (Seg) 56 % Normal 36-65 [facility] Comment on above: Performed By: #### B MP, CDP, HCG #### [facility] [address] [place] [address] Proof Technician: Wilder Galaviz MD NRBC Automated 0.0 per 100 WBC Normal 0.0 [facility] Comment on above: Performed By: #### B MP, CDP, HCG #### [facility] [address] [place], [place] [phone] Proof Technician: Wilder Galaviz MD Platelet mean volume (Bld) [Entitic vol] 9.7 fL Normal 8.1-13.5 [facility] Comment on above: Performed By: #### B MP, CDP, HCG #### [facility] [address] [place], [facility]83 Proof Technician: Wilder Galaviz MD Platelets (Bld) [#/Vol] 372 10*3/uL Normal 138-453 [facility] Comment on above: Performed By: #### B MP, CDP, HCG #### [address] [place] [address] Proof Technician: Wilder Galaviz MD RBC (Bld) [#/Vol] 4.42 10*6/uL Normal 3.95-5.11 [facility] Comment on above: Performed By: #### B MP, CDP, HCG #### [address] [place], [place] [phone] Proof Technician: Wilder Galaviz MD WBC (Bld) [#/Vol] 6.4 10*3/uL Normal 3.5-11.3 [facility] Comment on above: Performed By: #### B MP, CDP, HCG #### [address] [place], [facility]83 Proof Technician: Wilder Galaviz MD CT ABDOMEN PELVIS W IV CONTR Emilee 03-16-2023 CT ABDOMEN PELVIS W IV CONTRAST EXAMINATION: CT OF THE ABDOMEN AND PELVIS WITH CONTRAST 03/16/2023 8:20 pm TECHNIQUE: CT of the abdomen and pelvis was performed with the administration of intravenous contrast. Multiplanar reformatted images are provided for review. Automated exposure control, iterative reconstruction, and/or weight based adjustment of the mA/kV was utilized to reduce the radiation dose to as low as reasonably achievable. COMPARISON: None. HISTORY: ORDERING SYSTEM PROVIDED HISTORY: diffuse abdominal pain with multiple weeks of NVD TECHNOLOGIST PROVIDED HISTORY: diffuse abdominal pain with multiple weeks of NVD Decision Support Exception - unselect if not a suspected or confirmed emergency medical condition->Emergency Medical Condition (MA) FINDINGS: Lower Chest: Minimal dependent atelectasis. No focal consolidations or pleural effusions. Heart is normal in size. No pericardial effusion. Organs: Unremarkable liver, spleen, pancreas, gallbladder, adrenal glands and kidneys. GI/Bowel: Lack of oral contrast limits evaluation. No evidence for bowel obstruction or definite bowel wall thickening to unopacified large or small bowel. Appendix not definitely seen but no findings for acute appendicitis. Grossly unremarkable stomach. Pelvis: Unremarkable urinary bladder, uterus and right adnexa. Simple appearing left adnexal cyst measuring 4.0 x 2.0 cm. No follow-up imaging is recommended. Bilateral contraceptive coils are noted. Peritoneum/Retroperit oneum: No ascites or focal fluid collections. No intraperitoneal free air. No evidence for abdominal aortic aneurysm. No lymphadenopathy. Bones/Soft Tissues: No acute bone or soft tissue abnormality. No suspicious focal bony lesions. Multilevel degenerative changes to the lower lumbar spine. IMPRESSION: No acute findings to the abdomen or pelvis. No findings to explain the patient's symptoms. Interpreted by: Kendall Rousseau MD Signed by: Kendall Rousseau MD 03/16/23 Final result Normal [facility] HCG Screen, Bloodon 03-16-19 HCG Screen, Blood Negative Normal NEG [facility] Comment on above: Result Comment: Spec imens with hCG levels near the threshold of the test (25 mIU/mL) may give a negative or indeterminate result. In such cases, another test should be performed with a new specimen in 48-72 hours. If early is suspected clinically in this setting, correlation with quantitative serum b-hCG level is suggested. [facility] has confirmed the use of plasma for this test. This has not been cleared or approved by the U.S. Food and Drug Administration. The FDA has determined that such clearance is not necessary. Performed By: #### B MP, CDP, HCG #### [facility] [address] [place] [address] Proof Technician: Wilder Galaviz MD XR FOOT RIGHT (MIN 3 VIEWS)o n 09-03-2021 No acute osseous or soft tissue abnormality. [facility] RIS CONSOLIDATED EXAMINATION: THREE XRAY VIEWS OF THE RIGHT FOOT 09/03/2021 11:36 am COMPARISON: None. HISTORY: ORDERING SYSTEM PROVIDED HISTORY: Pain FINDINGS: There is no acute osseous abnormality. The joint spaces are maintained. The surrounding soft tissues are unremarkable. [facility] CONSOLIDATED Milton Garcia MD - 09/03/2021 EXAMINATION: THREE XRAY VIEWS OF THE RIGHT FOOT 09/03/2021 11:36 am COMPARISON: None. HISTORY: ORDERING SYSTEM PROVIDED HISTORY: Pain FINDINGS: There is no acute osseous abnormality. The joint spaces are maintained. The surrounding soft tissues are unremarkable. IMPRESSION: No acute osseous or soft tissue abnormality. [employer] Phone: Radiology Study observation (narrative) [employer] Phone: XR FOOT RIGHT (MIN 3 VIEWS)O rdered By: Milton Garcia on 09-03-2021 [facility] [employer] [facility] Work Phone: COVID Quick Testingon 2020 Result Negative [employer] Other POCT urine pregnancyon 03-31 Beta HCG ( test) Ql (U) Negative [place] Comment on above: Specimens with hCG l evels near the threshold of the test (25 mIU/mL) may give a negative or indeterminate result. In such cases, another test should be performed with a new specimen in 48-72 hours. If early is suspected clinically in this setting, correlation with quantitative serum b-hCG level is suggested. [place] [address] Surgical Pathologyon Surgical Pathology (NOTE) -- Diagnosis -- 1. RIGHT BREAST, REDUCTION MAMMOPLASTY:-BENIGN BREAST PARENCHYMA WITH FIBROCYSTIC CHANGES AND BENIGN SKIN.2. LEFT BREAST, REDUCTION MAMMOPLASTY:-BENIGN BREAST PARENCHYMA WITH FIBROCYSTIC CHANGES AND BENIGN SKIN. Wilder Galaviz M.D Electronically Signed Out chiqui04/01/2020 Clinical Information Pre-op Diagnosis: BILATERAL MACROMASTIA Operative Findings: RIGHT BREAST; LEFT BREAST Operation Performed: BREAST MAMMOPLASTY REDUCTION Source of Specimen 1: RIGHT BREAST 2: LEFT BREAST Gross Description 1. MONIKA MORRIS, RIGHT BREAST Fragments of fibrofatty tissue and unremarkable paez skin, 552 grams and 17.0 x 16.0 x 5.0 cm in aggregate. Sectioning reveals no masses. Gathering Machine Setter sections 2cs. 2. STEFANIA MORRIS, LEFT BREAST Fragments of fibrofatty tissue and unremarkable paez skin, 1109 grams and 20.0 x 18.0 x 7.0 cm in aggregate. Sectioning reveals no masses. Gathering Machine Setter sections 2cs. tm Microscopic Description 1, 2. Microscopic examination performed. SURGICAL PATHOLOGY CONSULTATION Patient Name: MONIKA MORRIS [facility] Rec: [id number] Path Number: [id number] [facility] CONSULTING PATHOLOGISTS [facility] [address] [place] [id number] [facility] Comment on above: Performed By: #### P PPVS #### [address] [address] Proof Technician: Brown Tatum MD [id number] 03-28-2020 SARS-CoV-2 Normal [facility] Comment on above: Performed By: #### C OVID #### [address] [address] Proof Technician: Brown Tatum MD SARS-CoV-2 Not Detected [facility] Comment on above: Result Comment: The specimen is NEGATIVE for SARS-CoV-2, the novel coronavirus associated with COVID-19. A negative result does not rule out COVID-19. Padmini SARS-CoV-2 for use on the Padmini [employer]8800 [employer] is a real-time RT-PCR test intended for the qualitative detection of nucleic acids from SARS-CoV-2 in clinician-collected nasal, nasopharyngeal, and oropharyngeal swab specimens from individuals who meet COVID-19 clinical and/or epidemiological criteria. Padmini SARS-CoV-2 is for use only under Emergency Use Authorization (EUA) in laboratories certified under Clinical Laboratory Improvement Amendments of 1988 (CLIA), 42 U.S.C. ?263a, that meet requirements to perform high or moderate complexity tests. An individual without symptoms of COVID-19 and who is not shedding SARS-CoV-2 virus would expect to have a negative (not detected) result in this assay. Fact sheet for Healthcare Providers: https://www.fda.gov/media/571924/download Fact sheet for Patients: https://www.fda.gov/media/696094/download METHODOLOGY: RT-PCR Performed By: #### C OVID #### [address] [address] Proof Technician: Brown Tatum MD SARS-CoV-2,Rapid Normal [facility] Comment on above: Performed By: #### C OVID #### [address] [address] Proof Technician: Brown Tatum MD [id number] 03-27-2020 SARS-CoV-2 Source .NASOPHARYNGEAL SWAB Normal [facility] Comment on above: Performed By: #### C OVID #### [address] [id number] Proof Technician: Brown Tatum MD UA RANDOMon 03-22-2020 Bilirubin [Mass/Vol] Negative Normal NEGATIVE [facility] Comment on above: Performed By: #### U A #### [facility] [address] [place] [address] Liz Sylwia BLOOD LARGE Abnormal NEGATIVE [facility] Comment on above: Performed By: #### U A #### [facility] [address] [place] [address] Liz Sylwia Clarity (U) CLEAR Normal CLEAR [facility] Comment on above: Performed By: #### U A #### [facility] [address] [place] [address] Liz Sylwia Color (U) LT. YELLOW Normal YELLOW [facility] Comment on above: Performed By: #### U A #### [facility] [address] [place] [address] Liz Sylwia Glucose [Mass/Vol] Negative Normal NEGATIVE [facility] Comment on above: Performed By: #### U A #### [facility] [address] [place], [place] [id number] Liz Sylwia Ketones Ql (U) Negative Normal NEGATIVE [facility] Comment on above: Performed By: #### U A #### [facility] [address] [place], [place] [id number] Liz Sylwia Nitrite Ql (U) Negative Normal NEGATIVE [facility] Comment on above: Performed By: #### U A #### [facility] [address] [place], [place] [id number] Liz Sylwia pH (Bld) 6.0 Normal 5-9 [facility] Comment on above: Performed By: #### U A #### [facility] [address] [place] [address] Liz Dao SPEC GRAVITY 1.020 Normal 1.005-<=1.025 [facility] Comment on above: Performed By: #### U A #### [facility] [address] [place] [address] Liz Sylwia UA PROTEIN Negative Normal NEGATIVE/ TRACE [facility] Comment on above: Performed By: #### U A #### [facility] [address] [place], [place] [id number] Lizfox Dao Urobilinogen Qn (U) 0.2 EU/dl Normal 0.2 - 1.0 [facility] Comment on above: Performed By: #### U A #### [facility] [address] [place], [place] [id number] [employer] Dao WBC (Bld) [#/Vol] Negative Normal NEGATIVE [facility] Comment on above: Performed By: #### U A #### [facility] [address] [place], [place] [id number] Liz Dao Vital Signs Date Time Vital Sign Value Performing Clinician Facility 12-22-2020 12:15-0400 Body height 165.1 cm Latoya Beck Other [employer] Other 12-22-2020 12:15-0400 Body mass index (BMI) [Ratio] 26.62 kg/m2 Latoya Beck Other [employer] Other 12-22-2020 12:15-0400 Body temperature 100.5 [degF] Latoya Beck Other [employer] Other 12-22-2020 12:15-0400 Body weight 72.58 kg Latoya Beck Other [employer] Other 12-22-2020 12:15-0400 Respiratory rate 18 /min Latoya Beck Other [employer] Other 12-22-2020 12:15-0400 SaO2% (BldA) [Mass fraction] 98 % Latoya Beck Other [employer] Other 03-31-2020 12:15-0500 BP Diastolic 94 mm[Hg] [facility] [place] 03-31-2020 12:15-0500 BP Systolic 127 mm[Hg] Dylan [facility] [place] 03-31-2020 12:15-0500 Pulse (Heart Rate) 80 /min Dylan [facility] [place] 03-31-2020 12:15-0500 Pulse Oximetry 93 % Dylan [facility] [place] 03-31-2020 11:17-0500 Body Temperature 97.81 [degF] [facility] [place] 03-31-2020 06:24-0500 Respiratory Rate 19 /min [facility] [place] 03-31-2020 06:10-0500 BMI (Body Mass Index) 29.95 kg/m2 Dylan [facility] [place] 03-31-2020 06:10-0500 Body weight 81.65 kg Dylan [facility] [place] 03-31-2020 06:10-0500 Height 165.1 cm Dylan Pruitt [facility] [place] , [place] Encounters Encounter Date Encounter Type Care Provider Facility Start: 07-17-2023 End: 07-17-2023 ambulatory DENG BALLARD Not Available Start: 07-17-2023 End: 07-17-2023 ambulatory PHYSICIAN NO [facility] Facility:[facility] Start: 07-17-2023 End: 07-17-2023 ambulatory PHYSICIAN NO [facility] Work Phone: Start: 07-17-2023 End: 07-17-2023 Departed Referred PHYSICIAN NO [facility] Start: 05-23-2023 End: 05-23-2023 ambulatory DENG BALLARD Not Available Start: 03-20-2023 ambulatory Facility: [facility] Start: 03-16-2023 End: 03-16-2023 Emergency department patient visit [facility] Start: 04-22-2022 End: 05-10-2022 ambulatory Facility:[id number] Start: 03-29-2022 End: 04-12-2022 ambulatory Facility:[id number] Start: 09-03-2021 End: 09-05-2021 Subsequent hospital visit by physician Jack Zaldivar 4 [facility] Radiology Comment on above: Pain Start: 12-22-2020 (URG) Urgent Care Visit Latoya trujillo [facility] Start: 07-01-2020 Patient encounter procedure WILDER ORTIZ Facility: Start: 03-31-2020 End: 03-31-2020 Patient encounter procedure DYLAN PRUITT [facility] Start: 03-31-2020 End: 03-31-2020 Subsequent hospital visit by physician Dylan Pruitt Work Phone: [facility] [place] Comment on above: Acute post-operative pain (Primary Dx) Start: 03-27-2020 End: 03-28-2020 Patient encounter procedure SHIRLEY KING [facility] Start: 03-27-2020 End: 03-27-2020 Subsequent hospital visit by physician [facility] Covid Screening Schedule [place] Covid Screening Comment on above: Preop testing (Prima ry Dx) Start: 03-26-2020 Encounter for other preprocedural examination [facility] Start: 03-22-2020 End: 03-23-2020 Patient encounter procedure DOCTOR [facility] Facility: Encounter for other preprocedural examination [facility] Procedures Date Procedure Procedure Detail Performing Clinician Start: 09-03-2021 Radex foot complete minimum 3 views Nadeen Rodriguez APRN - M[employer] Work Phone: Start: 03-31-2020 Urine test visual color cmprsn meths Dylan Pruitt Work Phone: Plan of Treatment Date Care Activity Detail Author Start: 11-10-2021 Influenza vaccination Flu vacc ine (Season Ended) [facility] Start: 04-05-2020 End: 04-05-2020 Office Visit 04/05/2020 Office Visit Plastic Surgery Dylan Pruitt MD [address] [place] [address] [phone] [facility] Start: 03-31-2020 End: 03-31-2020 Hospital Encounter [facility] [place] Comment on above: BREAST MAMMOPLASTY R EDUCTION Start: 03-27-2020 End: 03-26-2021 [facility] [place] Comment on above: Expected: 03/27/2020 , Expires: 03/26/2021 Once for 1 Occurrenc es starting 03/27/2020 until 03/27/2020 Start: 11-11-2019 Influenza vaccination Flu vaccine (# 1) [place] Start: 09-20-2011 [facility] Start: 2002 Scre[facility] for malign ant [facility]ix [facility] Start: 2000 DTaP/Tdap/Td vaccine (1 - Tdap) DTaP/Tdap/Td vaccine (1 - Tdap) [facility] Start: 09-20-1999 Hepatitis C screening Hepatitis C sc reen [facility] Start: 1996 HIV screening HIV screen [facility] Start: 1993 Depression Screen Depression Screen [facility] Start: 1986 COVID-19 Vaccine (1) COVID-19 Vaccin e (1) [facility] Start: 1982 Varicella vaccine (1 of 2 - 2-dose childhood series) Varicella vaccine (1 of 2 - 2-dose childhood series) [facility] Start: 1981 Hepatitis C screening Hepatitis C sc reen [place], [place] End: 03-31-2020 Blood glucose - POCT Blood glucose - POCT Point of Care Testing Routine One Time for 1 Occurrences starting 03/31/2020 until 03/31/2020 [place], [place] Comment on above: One Time for 1 Occur rences starting 03/31/2020 until 03/31/2020 COVID-19 COVID-19 Lab Rou david 03/27/2020 1:13 PM EST [place], [place] Oxygen therapy [[facility] Data Set] Initiate Oxygen Therapy Protocol Respiratory Care Routine Daily until discontinued starting 03/31/2020 [place] Comment on above: Daily until disconti nued starting 03/31/2020 Phase I & II - meter ed glucose Phase I & II - metered glucose Point of Care Testing Routine As Needed until discontinued starting 03/31/2020 [place] Comment on above: As Needed until disc ontinued starting 03/31/2020 End: 03-31-2020 , urine POCT , urine POCT Point of Care Testing Routine One Time for 1 Occurrences starting 03/31/2020 until 03/31/2020 [place] Comment on above: One Time for 1 Occur rences starting 03/31/2020 until 03/31/2020 Surgical Pathology Surgical Path ology Lab Routine Release Upon Ordering for 1 Occurrences starting 03/31/2020 [place] Comment on above: Release Upon Orderin g for 1 Occurrences starting 03/31/2020 Payers Date Payer Category Payer Unknown [id number] [id number] [id number] 1980 Unknown [id number] [id number] 1981 Unknown [id number] 2.16.84 [id number] 1981 Unknown [id number] 2.16.84 [id number] 1981 Unknown [id number] 2.16.8 [id number] 1981 Unknown [id number] 2.16.84 [id number] 1981 Unknown [id number] 2.16.84 [id number] 1959 Private Health Insurance [id number] 1958 Self-pay Private Health Insurance [id number] Unknown [id number] [id number] [id number] Social History Date Type Detail Facility Start: 03-22-2020 End: 03-31-2020 Tobacco smoking status NHIS Former smoker [place], [place] Start: 07-18-2023 End: 12-30-2019 History of tobacco use Current sm[place] End: 12-30-2019 History of tobacco use Cigarette [place] Start: 03-22-2020 End: 03-31-2020 Cigarettes smoked current (pack per day) - Reported [place] Start: 03-22-2020 End: 03-31-2020 Tobacco use and exposure Never used [place] Start: 03-31-2020 End: 05-05-2020 Alcohol intake Current drinker of alcohol (finding) [place] Start: 11-25-2019 History SDOH Alcohol Frequency 3 [place] Start: 03-31-2020 Alcohol Comment social [place], [place] Start: 1980 Sex Assigned At Not on file [facility] [place] Exposure to SARS-CoV -2 (event) Not sure [place] Sex Assigned At Sex Assigned At Bir th [employer] Other Start: 03-31-2020 History SDOH Alcohol Comment social [facility] [employer] Phone: Start: 1980 Sex Assigned At Female F [facility] Evaluation note 12-22-2020 Note Date & Type Note Facility 12-22-2020 Evaluation note Encounter Date Diagnosis Assessment Notes Dec, Contact with and (suspected) exposure to other viral communicable diseases (ICD-10 - Z20.828) Dec, Viral upper respiratory illness (ICD-10 - J06.9) Dec, Other Additional time spent conducting pre-visit phone call, screening for symptoms, instructions on social distancing, application and removal of PPE, and cleaning of examination room, equipment and supplies was preformed. Patient education given for testing methodology and results. Patient care instructions given in writting by [facility] document. Additional time spent conducting pre-visit phone call, screening for symptoms, instructions on social distancing, application and removal of PPE, and cleaning of examination room, equipment and supplies was preformed. Patient education given for testing methodology and results. Patient care instructions given in writting by [facility] document. [employer] Other Evaluation note Note Date & Type Note Facility Evaluation note Diagnosis Pain Generalized pain documented in this encounter [facility] [employer] Phone: Evaluation note Note Date & Type Note Facility Evaluation note No assessment information availa [facility] Work Phone: History general Narrative - Reported Note Date & Type Note Facility History general Narrative - Reported Type Medical History chronic depression Surgical History C section Surgical History tonsillectomy Surgical History essure [employer] Other Discharge Instructions * Instructions* Terra Yates RN - 03/31/2020 Breast Reduction and/or Mastopexy After your surgery: You will feel wobbly and drowsy from all the anesthesia and medication. Please go home and rest. You will need an adult to drive you home and stay with you the first 24-48 hours after surgery. Drink plenty of fluids to replace those lost during surgery. Your first meal should be a bland meal such as toast, soup, Jell-o, tea, etc. Activity: No driving for two to three weeks or while taking pain medication. No strenuous activities such as tennis, golf, bowling, swimming, or exercise classes for 6 weeks. Sleep in a recliner, or with upper body elevated, supported by pillows. Have help when standing, walking, and showering for the first few days. We do encourage you to pump your legs while resting and to move around to promote circulation. Restrictions Week one and two: Do not lift anything heavier than a spoon or fork, do not raise your arms above your head, lift, push, or pull. Week three: You may lift up to 5 pounds. Week Four: You may lift up to 10 pounds. Week five: You may lift up to 15 pounds. Week six: You may lift up to 20 pounds. After this week is completed, no restrictions; resume normal activity and you may slowly begin to exercise. Support Bra and Dressings: You will be wearing a surgical support bra day and night (02/10) for six weeks. Under the bra will be gauze pads. After we change them for the first time in the office, you shouldchange them everyday until healed. Under the gauze pads will be surgical tape that is placed over the ends of the suture to hold them in place. Do not remove these. If they fall off on their own, you can leave them off or cover them with small Band-aids if the ends are getting caught in the bra. The sutures (stiches) will be removed in two to three weeks. You may remove the support bra for showering, to check your breasts, or to wash the bra. Three times a day, open the bra to check for excessive discoloration, swelling, redness, or blistering of the skin. Call the surgeons office if you notice this. No under wire bras are to be worn for one year after your surgery. Drains: You may have two bulb drains, one on each side of your breasts. These are to collect extra drainageunder your skin and will be in place for 3-10 days. To empty the bulb, open the tab, hold the bulb at eye level and read the amount of drainage. Empty the drain and squeeze the bulb to decompress it and place the tab back on top. Empty the drain at least two times a day or when it becomes half full. The drain bulb needs to be compressed in order for it to work. Record the amount of drainage on the back of this sheet and take with you to the office appointment. Showering: You may shower 24 hours after the last drain has been removed. Shower using warm, not hot water, deflecting the water from hitting the breast area. Pat breast and nipple area dry. Do not rub. No bathtubs, whirlpools, lakes etc. Until your incisions are completely healed. Medications: Take your antibiotics as prescribed until completely finished. Take with feed or crackers if needed. You will have the most discomfort the first week after surgery. Take the pain medication as prescribed. If the medications cause constipation increase your fluid ad fiber intake. You may also take tjmz-osw-zdswriv stool softener. We have found that 2 sugar-free peppermint patties sometime help with constipation. Do not take aspirin products, Ibuprofen or Motrin for two weeks before and after your surgery. Tylenol or Acetaminophen is permitted instead of your pain medication. Do not take Tylenol with any prescription pain medication at the same time. Office visits and work: We suggest that you take pain medication before your first few office visits. We will see you in the office within one week of your surgery, in 10-14 days, then as the doctor schedules. Be sure to stop in [place] for ur special products for you. You will return to work in one to three weeks depending on the level of activity for your job. documented in this encounter History of Present Illness * Roseann Gilbert RN - 03/31/2020 11:45 AM EST Discharge inst discussed with family and pt, scripts per pharmacy. Questions answered * Mitchell Rebollar RN - 03/31/2020 5:52 AM EST Urine hcg negative. * Dixon Garvin RN - 03/22/2020 11:12 AM EST Preoperative Instructions: Stop eating solid foods at midnight the night prior to your surgery. Stop drinking clear liquids at midnight the night prior to your surgery. Arrive at the surgery center (3rd entrance) on ___1-12-26 by ___0600 . Please stop any blood thinning medications as directed by your surgeon or prescribing physician. Failure to stop certain medications may interfere with your scheduled surgery. These may include: Aspirin, Coumadin, Plavix, NSAIDS (Motrin, Aleve, Advil, Mobic, Celebrex), Eliquis, Pradaxa, Xarelto, Fish oil, and herbal supplements. You may continue the rest of your medications through the night before surgery unless instructed otherwise. Day of surgery please take only the following medication(s) with a small sip of water:Welbutrin Please shower with antibacterial soap and water the night before and the morning of surgery. Reminders: -If you are going home the day of your procedure, you will need a family member or friend to stay during the procedure and drive you home after your procedure. Your driver/sales workers must be 18 years of age or older and able to sign off on your discharge instructions. -If you are going home the same day of your surgery, someone must remain with you for the first 24 hours after your surgery if you receive sedation or anesthesia. 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 ACP-Advance Directive ACP-Power of Durability Engineer Advance Directive Response Recorded Date/ Time Advance Directives No July 18, 2023 12:27pm Summary Purpose Family History No Family History Records FoundNo Family History Records FoundNo Family History Records FoundNo Family History Records FoundNo Family History Records FoundNo Family History Records FoundNo Family History Records FoundNo Family History Records Found Additional Source Comments Reason for Visit (unrecogniz ed section and content) Status Reason Specialty Diagnoses / Procedures Referre d By Contact Referred To Contact Diagnoses Macromastia BILATERAL MACROMASTIA Procedures AK BREAST REDUCTION BREAST MAMMOPLASTY REDUCTION Dylan Pruitt MD [address] [place] [address] [facility] Ordered Prescriptions (unrec ognized section and content) Prescription Sig Dispensed Refills Start Date End Da te HYDROcodone-acetaminophe n (NORCO) 5-325 MG per tabletIndications:Acute post-operative pain Take 1 tablet by mouth every 6 hours as needed for Pain for up to 7 days. Intended supply: 7 days. Take lowest dose possible to manage pain 28 tablet 0 03/31/2020 04/07/2020 ciprofloxacin (CIPRO) 500 MG tablet Take 1 tablet by mouth 2 times daily for 5 days 10 tablet 0 03/31/2020 04/05/2020 INFORMATION SOURCE (unrecogn ized section and content) DATE CREATED AUTHOR 04/01/2020 [facility] DATE CREATED AUTHOR AUTHOR'S ORGANIZ ATION 04/02/2020 [facility] DATE CREATED AUTHOR AUTHOR'S ORGANIZ ATION 06/23/2020 [facility] DATE CREATED AUTHOR AUTHOR'S ORGANIZ ATION 05/11/2022 [facility] DATE CREATED AUTHOR AUTHOR'S ORGANIZ ATION 03/17/2023 [facility] DATE CREATED AUTHOR AUTHOR'S ORGANIZ ATION 04/29/2023 [facility] DATE CREATED AUTHOR AUTHOR'S ORGANIZ ATION 07/19/2023 [facility] EPIC DATE CREATED AUTHOR AUTHOR'S ORGANIZ ATION 07/20/2023 [facility] Care Teams (unrecognized sec tion and content) Insurance Follow Up Rep Relationship Specialty Start Date End Date Alden Meléndez MD [id number] [address] [address] PCP - General Family Medicine 03/24/20 Insurance Follow Up Rep Relationship Specialty Start Date End Date Alden Meléndez MD [address] [place] [id number] PCP - General Family Medicine 03/24/20 Team Status: Active Member Role Status Dates PHYSICIAN NO FAMILY Primary Care Provider Active Team Status: Inactive Member Role Status Dates PHYSICIAN NO FAMILY Primary Care Provider Active Start: July 17, 2023 End: July 17, 2023 Deng Ballard Attending Provider Active Start: Gutierrez degroot 2023 End: July 17, 2023 Goals (unrecognized section and content) Goals may be documented in a n alternate section FOR RECORDS PERTAINING TO PATIENTS WHO ARE OR HAVE BEEN ENROLLED IN A CHEMICAL DEPENDENCY/SUBSTANCEABUSE PROGRAM, SOME INFORMATION MAY BE OMITTED. This clinical summary was aggregated from multiple sources. Caution should be exercised in using it in the provision of clinical care. This summary normalizes information from multiple sources, and as a consequence, information in this document may materially change the coding, format and clinical context of patient data. In addition, data may be omitted in some cases. CLINICAL DECISIONS SHOULD BE BASED ON THE PRIMARY CLINICAL RECORDS. [employer] provides no warranty or guarantee of the accuracy or completeness of information in this document.
== END 2023-07-23 10:54 | disposition home or self-care (01) ==
LOC: PST 10:57
PROVIDERS: Visit Provider Obstetrics & Gynecology
DX: Z01.818 Encounter for other preprocedural examination (principal); Z30.2 Encounter for sterilization; N92.0 Excessive and frequent menstruation with regular cycle; N93.9 Abnormal uterine and vaginal bleeding, unspecified; R10.2 Pelvic and perineal pain

== ENCOUNTER 2023-07-27 07:18 | Day surgery (SDC) | payer OTHER, SELFPAY ==
[2023-07-23 11:39] VITALS: BP 128/76; PULSE 80; TEMP 36.6; O2SAT 95; BMI 25.2
[2023-07-27] VITALS (18 sets, daily range): BP systolic 84–124; BP diastolic 51–71; PULSE 59–73; TEMP 36.2–36.6; O2SAT 95–99; BMI 25.0
--- NOTE | 2023-07-27 07:15 | XR_ITS ---
The [address] [address] Patient Name: ДМИТРИЙ NAVARRO MRN: [id number] date: 1980 Sex: F Assigned Patient Location: SURGOUT Current Patient Location: [facility] Accession/Order Number: [id number] Exam Date: 07/27/2023 07:30 Report Date: 07/27/2023 07:47 At the request of: MAURICE MILLARD Procedure: XR chest 1V EXAMINATION: XR chest 1V HISTORY: pre op COMPARISON: No relevant comparison available. TECHNIQUE: Portable FINDINGS: LUNGS: No significant pulmonary parenchymal abnormalities. VASCULATURE: No increased pulmonary vasculature. PLEURA: No pneumothorax, effusion, or pleural thickening. CARDIAC: No cardiomegaly or cardiac silhouette abnormality. MEDIASTINUM: No visible mass or adenopathy. BONES: No fracture or visible bone lesion. OTHER: Negative. XR/XR chest 1V IMPRESSION: No acute cardiopulmonary process Electronically authenticated by: WILDER ORTIZ Date: 07/27/2023 07:47
--- OUTSIDE RECORDS SUMMARY | 2023-07-27 07:27 | XMS_ITS | CCD ---
Author Organization [facility] Care Team Providers Care Board Attendant Name Role Phone Alden Meléndez Primary Care [...] Unavailable Alden Meléndez MD Primary Care Provider [phone] LULA SHARPE Attending Unavailable ALDEN MELÉNDEZ Primary Care Unavailable DENG BALLARD Attending Unavailable DENG BALLARD Attending Unavailable NO FAMILY, PHYSICIAN Primary Care Unavailable Deng Ballard Attending Unavailable Deng Ballard Admitting Unavailable NO FAMILY, PHYSICIAN Primary Care Provider Unava ilable Deng Ballard Attending Provider Allergies Allergy Classification Reported Allergen(s) Allergy Type Date of Onset Reaction(s) Facility (4 sources) Acetaminophen / oxyCODONE Drug Allergy 1 [place], [place] (6 sources) Cephalexin Drug Allergy 0 Hives, Itching, Swelling [place], [place] (6 sources) Codeine Drug Allergy 0 Nausea And Vomiting [place] (4 sources) Penicillins Propensity to adverse reactions to drug 0 Other (See Comments) [place] (4 sources) Propoxyphene Drug Allergy 0 Nausea And Vomiting [facility], [place] (1 source) Cephalexin Drug Allergy [facility] (1 source) Codeine Drug Allergy [facility] (1 source) Penicillin Drug Allergy [facility] (1 source) Darvocet-N 100 Drug allergy (disorder) [facility] (3 sources) Penicillin G Benzathine; Translations: [penicillin G benzathine] Drug allergy 1 swelled [facility] (1 source) Cephalexin Drug Allergy 1 [facility] (1 source) Codeine Drug Allergy 1 [facility] Medications Current Medications Medication Drug [...] % 150 mL with bupivacaine-EPINEPHrine (MARCAINE-w/EPINEPHRINE) 0.5% -1:784375 40 mL, lidocaine-EPINEPHrine 50 mL (1 source) Start: 03-31-2020 End: 03-31-2020 sodium chloride 0.9 % 150 mL with bupivacaine-EPINEPHrine (MARCAINE-w/EPINEPHRINE) 0.5% -1:554800 40 mL, lidocaine-EPINEPHrine 50 mL Problems Active [...] Test Name Value Interpretation Reference Range Facility [facility] 07-17-2023 L Specimen: [id number] Received: 07/18/23 Status: KEREN Dietrichandrei Num: [id number] Spec Type: Surgical Subm Dr: Deng Ballard Tissues: A Endometrium - Biopsy (EMBX) Procedures: HE/2, Gross/Micro L4 Age/ Patient Sex Location Account Attending Physician Monika Morris 42/F [place] [id number] Deng Ballard SPEC NUM: [id number] RECD: 07/18/23 STATUS: KEREN DIETRICHAndrei NUM: [id number] DWAYNE: 07/17/[address]: Deng Ballard ENTERED: 07/18/23 [facility] DR: Antony,Lab SPEC TYPE: Surgical DEPT: AMBER [...] history: Menorrhagia with irregular cycles CPT Codes 81920 -------- -------- Specimen: [id number] Received: 07/18/23 Status: KEREN Bonilla Num: [id number] Spec Type: Surgical Subm Dr: Deng Ballard Tissues: A Endometrium - Biopsy (EMBX) Procedures: HE/2, Gross/Micro L4 -------- Patient: Monika Morris [id number] (Continued) -------- Signed (signature on file) Criss Shirley MD 07/19/23 1419 Normal [facility] Provider Letteron 04-27-2023 Provider Letter April 27, 2023 MONIKA MORRIS [address] [place] [address] : 1980 Dear Monika, We have been [...] your prompt attention to this matter. Sincerely, [facility] [phone] [facility] Physician Referralon 024 Physician Referral [phone] [id number] [facility] Basic Metabolic Profon 03-16 Anion gap [Moles/Vol] 7 mmol/L Low 9-17 [facility] Comment on above: Performed By: #### B MP, CDP, HCG #### [facility] [address] [place], [place] [id number] License Inspector: Wilder Galaviz MD BUN/CRE Ratio 35 High 9-20 [facility] Comment on above: Performed By: #### B MP, CDP, HCG #### [facility] [address] [place], [place] [id number] License Inspector: Wilder Galaviz MD Calcium [Mass/Vol] 9.3 mg/dL Normal 8.6-10.4 [facility] Comment on above: Performed By: #### B MP, CDP, HCG #### [facility] [address] [place], [place] 469[address]83 License Inspector: Wilder Galaviz MD Chloride [Moles/Vol] 101 mmol/L Normal 98-107 [facility] Comment on above: Performed By: #### B MP, CDP, HCG #### [facility] [address] [place] [address] License Inspector: Wilder Galaviz MD CO2 [Moles/Vol] 26 mmol/L Normal 20-31 [facility] Comment on above: Performed By: #### B MP, CDP, HCG #### [facility] [address] [place], [place] 0748383 License Inspector: Wilder Galaviz MD Creatinine [Mass/Vol] 0.4 mg/dL Low 0.5-0.9 [facility] Comment on above: Performed By: #### B MP, CDP, HCG #### [facility] [address] [place], [place] [id number] License Inspector: Wilder Galaviz MD GFR/1.73 sq M.predicted among non-blacks MDRD (S/P/Bld) [Vol rate/Area] mL/min/{1.73_m2} Normal >60 [facility] Comment on above: Result Comment: These results [...] By: #### B KAYODE BOWLING, HCG #### [facility] [address] [place] [address] [place] [address] License Inspector: Wilder Galaviz MD Glucose [Mass/Vol] 99 mg/dL Normal 70-99 [facility] Comment on above: Performed By: #### B DASH CDP, HCG #### [facility] [address] [place] [address] [place] [address] License Inspector: Wilder Galaviz MD Potassium [Moles/Vol] 3.7 mmol/L Normal 3.7-5.3 [facility] Comment on above: Performed By: #### B DASH CDP, HCG #### [address] [place] [address] License Inspector: Wilder Galaviz MD Sodium [Moles/Vol] 134 mmol/L Low 135-144 [facility] Comment on above: Performed By: #### B DASH CDP, HCG #### [facility] [address] [place] [address] License Inspector: Wilder Galaviz MD Urea nitrogen [Mass/Vol] 14 mg/dL Normal 6-20 [facility] Comment on above: Performed By: #### B DASH, CDP, HCG #### [facility] [address] [place] [address] License Inspector: Wilder Galaviz MD CBC with Diffon 03-16-2023 Abs. Basophil 0.06 k/uL Normal 0.00-0.20 [facility] Comment on above: Performed By: #### B MP, CDP, HCG #### [facility] [address] [place], [place] 4873283 License Inspector: Wilder Galaviz MD Abs.Imm.Granulocyt e <0.03 Normal 0.00-0.30 [facility] Comment on above: Performed By: #### B MP, CDP, HCG #### [facility] [address] [place], [place] [address]83 License Inspector: Wilder Galaviz MD Abs.Neutrophil (Seg) 3.62 k/uL Normal 1.50-8.10 [facility] Comment on above: Performed By: #### B MP, CDP, HCG #### [facility] [address] [place] [address] Dr. [place], [place] [address] License Inspector: Wilder Galaviz MD Basophils/100 WBC (Bld) 1 % Normal 0-2 [facility] Comment on above: Performed By: #### B MP, CDP, HCG #### [address] [place] [address] License Inspector: Wilder Galaviz MD Eosinophils (Bld) [#/Vol] 0.17 10*3/uL Normal 0.00-0.44 [facility] Comment on above: Performed By: #### B MP, CDP, HCG #### [facility] [address] [place] [address] License Inspector: Wilder Galaviz MD Eosinophils/100 WBC (Bld) 3 % Normal 1-4 [facility] Comment on above: Performed By: #### B MP, CDP, HCG #### [facility] [address] [place], [place] 2679883 License Inspector: Wilder Galaviz MD Erythrocyte distribution width (RBC) [Ratio] 12.2 % Normal 11.8-14.4 [facility] Comment on above: Performed By: #### B MP, CDP, HCG #### [facility] [address] [place], [place] [address]83 License Inspector: Wilder Galaviz MD Hematocrit (Bld) [Volume fraction] 41.3 % Normal 36.3-47.1 [facility] Comment on above: Performed By: #### B MP, CDP, HCG #### [facility] [address] [place], [place] 6177883 License Inspector: Wilder Galaviz MD Hemoglobin (Bld) [Mass/Vol] 13.6 g/dL Normal 11.9-15.1 [facility] Comment on above: Performed By: #### B MP, CDP, HCG #### [address] [place], [facility]83 License Inspector: Wilder Galaviz MD Immature granulocytes/100 WBC (Bld) 0 % Normal 0 [facility] Comment on above: Performed By: #### B DASH, CDP, HCG #### [address] [place], [place] [address]83 License Inspector: Wilder Galaviz MD Lymphocytes (Bld) [#/Vol] 1.78 10*3/uL Normal 1.10-3.70 [facility] Comment on above: Performed By: #### B MP, CDP, HCG #### [facility] [address] [place], [place] 463[address]83 License Inspector: Wilder Galaviz MD Lymphocytes/100 WBC (Bld) 28 % Normal 24-43 [facility] Comment on above: Performed By: #### B MP, CDP, HCG #### [facility] [address] [place], [place] 4722383 License Inspector: Wilder Galaviz MD MCH (RBC) [Entitic mass] 30.8 pg Normal 25.2-33.5 [facility] Comment on above: Performed By: #### B MP, CDP, HCG #### [facility] [address] [place], [place] 8304683 License Inspector: Wilder Galaviz MD MCHC (RBC) [Mass/Vol] 32.9 g/dL Normal 28.4-34.8 [facility] Comment on above: Performed By: #### B MP, CDP, HCG #### [facility] [address] [place] [address] License Inspector: Wilder Galaviz MD MCV (RBC) [Entitic vol] 93.4 fL Normal 82.6-102.9 [facility] Comment on above: Performed By: #### B MP, CDP, HCG #### [address] [place], [place] 8437283 License Inspector: Wilder Galaviz MD Monocytes (Bld) [#/Vol] 0.75 10*3/uL Normal 0.10-1.20 [facility] Comment on above: Performed By: #### B MP, CDP, HCG #### [address] [place], [place] 7653183 License Inspector: Wilder Galaviz MD Monocytes/100 WBC (Bld) 12 % Normal 3-12 [facility] Comment on above: Performed By: #### B MP, CDP, HCG #### [facility] [address] [place], [place] 2286383 License Inspector: Wilder Galaviz MD Neutrophil (Seg) 56 % Normal 36-65 [facility] Comment on above: Performed By: #### B MP, CDP, HCG #### [facility] [address] [place] [address] License Inspector: Wilder Galaviz MD NRBC Automated 0.0 per 100 WBC Normal 0.0 [facility] Comment on above: Performed By: #### B MP, CDP, HCG #### [facility] [address] [place], [place] 6303183 License Inspector: Wilder Galaviz MD Platelet mean volume (Bld) [Entitic vol] 9.7 fL Normal 8.1-13.5 [facility] Comment on above: Performed By: #### B MP, CDP, HCG #### [facility] [address] [place], [facility]83 License Inspector: Wilder Galaviz MD Platelets (Bld) [#/Vol] 372 10*3/uL Normal 138-453 [facility] Comment on above: Performed By: #### B MP, CDP, HCG #### [address] [place] [address] License Inspector: Wilder Galaviz MD RBC (Bld) [#/Vol] 4.42 10*6/uL Normal 3.95-5.11 [facility] Comment on above: Performed By: #### B MP, CDP, HCG #### [address] [place], [place] 533[address]83 License Inspector: Wilder Galaviz MD WBC (Bld) [#/Vol] 6.4 10*3/uL Normal 3.5-11.3 [facility] Comment on above: Performed By: #### B MP, CDP, HCG #### [address] [place], [facility]83 License Inspector: Wilder Galaviz MD CT ABDOMEN PELVIS W [...] Kendall Rousseau MD 03/16/23 Final result Normal [facility] HCG Screen, Bloodon 03-16-19 HCG Screen, Blood Negative Normal [facility]G [facility] Comment on above: Result Comment: Spec imens with hCG levels near the threshold of the test (25 mIU/mL) may give a negative or indeterminate result. In such cases, another test should be performed with a new specimen in 48-72 hours. If early is suspected clinically in this setting, correlation with quantitative serum b-hCG level is suggested. [facility] has confirmed the use of plasma for this test. This has not been cleared or approved by the U.S. Food and Drug Administration. The FDA has determined that such clearance is not necessary. Performed By: #### B MP, CDP, HCG #### [facility] [address] [place] [address] License Inspector: Wilder Galaviz MD XR FOOT RIGHT (MIN 3 VIEWS)o n 09-03-2021 No acute osseous or soft tissue abnormality. [facility] RIS CONSOLIDATED EXAMINATION: THREE XRAY VIEWS OF THE RIGHT FOOT 09/03/2021 11:36 am COMPARISON: None. HISTORY: ORDERING SYSTEM PROVIDED HISTORY: Pain FINDINGS: There is no acute osseous abnormality. The joint spaces are maintained. The surrounding soft tissues are unremarkable. [facility] CONSOLIDATED Milton Garcia MD - 09/03/2021 EXAMINATION: THREE XRAY VIEWS OF THE RIGHT FOOT 09/03/2021 11:36 am COMPARISON: None. HISTORY: ORDERING SYSTEM PROVIDED HISTORY: Pain FINDINGS: There is no acute osseous abnormality. The joint spaces are maintained. The surrounding soft tissues are unremarkable. IMPRESSION: No acute osseous or soft tissue abnormality. [employer] Phone: Radiology Study observation (narrative) [employer] Phone: XR FOOT RIGHT (MIN 3 VIEWS)O rdered By: Milton Garcia on 09-03-2021 [facility] [employer] [facility] Work Phone: COVID Quick Testingon 2020 Result Negative [employer] Other POCT urine pregnancyon 03-31 Beta HCG ( test) Ql (U) Negative NEGATIVE [place] Comment on above: Specimens with hCG l evels near the threshold of the test (25 mIU/mL) may give a negative or indeterminate result. In such cases, another test should be performed with a new specimen in 48-72 hours. If early is suspected clinically in this setting, correlation with quantitative serum b-hCG level is suggested. [place] [address] Surgical Pathologyon Surgical Pathology (NOTE) -- Diagnosis [...] cm in aggregate. Sectioning reveals no masses. Registered Nurse Surgical Services sections 2cs. 2. STEFANIA MORRIS, LEFT BREAST Fragments of fibrofatty tissue and unremarkable paez skin, 1109 grams and 20.0 x 18.0 x 7.0 cm in aggregate. Sectioning reveals no masses. Registered Nurse Surgical Services sections 2cs. tm Microscopic Description 1, 2. Microscopic examination performed. SURGICAL PATHOLOGY CONSULTATION Patient Name: MONIKA MORRIS [facility] Rec: [id number] Path Number: [id number] [facility] CONSULTING PATHOLOGISTS [facility] ANATOMIC PATHOLOGY [address] [place] [id number] [facility] Comment on above: Performed By: #### P PPVS #### [address] [address] License Inspector: Brown Tatum MD [id number] 03-28-2020 SARS-CoV-2 Normal [facility] Comment on above: Performed By: #### C OVID #### [address] [address] License Inspector: Brown Tatum MD SARS-CoV-2 Not Detected [facility] Comment on above: Result Comment: The specimen is NEGATIVE for SARS-CoV-2, the novel coronavirus associated with COVID-19. A negative result does not rule out COVID-19. Padmini SARS-CoV-2 for use on the Padmini [employer]88[employer] is a real-time RT-PCR test intended [...] this assay. Fact sheet for Healthcare Providers: https://www.fda.gov/media/194857/download Fact sheet for Patients: https://www.fda.gov/media/019004/download METHODOLOGY: RT-PCR Performed By: #### C OVID #### [address] [address] License Inspector: Brown Tatum MD SARS-CoV-2,Rapid Normal [facility] Comment on above: Performed By: #### C OVID #### [address] [address] License Inspector: Brown Tatum MD [id number] 03-27-2020 SARS-CoV-2 Source .NASOPHARYNGEAL SWAB Normal [facility] Comment on above: Performed By: #### C OVID #### [address] [id number] License Inspector: Brown Tatum MD UA RANDOMon 03-22-2020 Bilirubin [Mass/Vol] Negative Normal NEGATIVE [facility] Comment on above: Performed By: #### U A #### [facility] [address] [place] [address] Liz Sylwia BLOOD LARGE Abnormal NEGATIVE [facility] Comment on above: Performed By: #### U A #### [facility] [address] [place] [address] Liz Sylwia Clarity (U) CLEAR Normal CLEAR [facility] Comment on above: Performed By: #### U A #### [facility] [address] [place] [address] Liz Sylwia Color (U) LT. YELLOW Normal YELLOW [facility] Comment on above: Performed By: #### U A #### [facility] [address] [place] [address] Liz Sylwia Glucose [Mass/Vol] Negative Normal NEGATIVE [facility] Comment on above: Performed By: #### U A #### [facility] [address] [place], [place] [address] Liz Sylwia Ketones Ql (U) Negative Normal NEGATIVE [facility] Comment on above: Performed By: #### U A #### [facility] [address] [place], [place] [address] Liz Sylwia Nitrite Ql (U) Negative Normal NEGATIVE [facility] Comment on above: Performed By: #### U A #### [facility] [address] [place], [place] [address] Liz Sylwia pH (Bld) 6.0 Normal 5-9 [facility] Comment on above: Performed By: #### U A #### [facility] [address] [place] [address] Liz Dao SPEC GRAVITY 1.020 Normal 1.005-<=1.025 [facility] Comment on above: Performed By: #### U A #### [facility] [address] [place] [address] Liz Sylwia UA PROTEIN Negative Normal NEGATIVE/ TRACE [facility] Comment on above: Performed By: #### U A #### [facility] [address] [place], [place] [address] [employer] Dao Urobilinogen Qn (U) 0.2 EU/dl Normal 0.2 - 1.0 [facility] Comment on above: Performed By: #### U A #### [facility] [address] [place], [place] [address] [employer] WBC (Bld) [#/Vol] Negative Normal NEGATIVE [facility] Comment on above: Performed By: #### U A #### [facility] [address] [place], [place] [address] Liz Dao Vital Signs Date Time Vital Sign Value Performing Clinician Facility 12-22-2020 12:15-0400 Body height 165.1 cm Latoya Beck Other [employer] Other 12-22-2020 12:15-0400 Body mass index (BMI) [Ratio] 26.62 kg/m2 Latoya Beck Other [employer] Other 12-22-2020 12:15-0400 Body temperature 100.5 [degF] Latoya Beck Other [employer] Other 12-22-2020 12:15-0400 Body weight 72.58 kg Latoya Beck Other [employer] Other 12-22-2020 12:15-0400 Respiratory rate 18 /min Latoya Beck Other [employer] Other 12-22-2020 12:15-0400 SaO2% (BldA) [Mass fraction] 98 % Latoya Beck Other [employer] Other 03-31-2020 12:15-0500 BP Diastolic 94 mm[Hg] [facility] [place] 03-31-2020 12:15-0500 BP Systolic 127 mm[Hg] [facility] [place] 03-31-2020 12:15-0500 Pulse (Heart Rate) 80 /min [facility] [place] 03-31-2020 12:15-0500 Pulse Oximetry 93 % [facility] [place] 03-31-2020 11:17-0500 Body Temperature 97.81 [degF] [facility] [place] 03-31-2020 06:24-0500 Respiratory Rate 19 /min [facility] [place] 03-31-2020 06:10-0500 BMI (Body Mass Index) 29.95 kg/m2 [facility] [place] 03-31-2020 06:10-0500 Body weight 81.65 kg [facility] [place] 03-31-2020 06:10-0500 Height 165.1 cm Dylan Pruitt [facility] [place] , [place] Encounters Encounter Date Encounter Type Care Provider Facility Start: 07-17-2023 End: 07-17-2023 ambulatory DENG BALLARD Not Available Start: 07-17-2023 End: 07-17-2023 ambulatory PHYSICIAN NO [facility] Facility:[facility] Start: 07-17-2023 End: 07-17-2023 ambulatory PHYSICIAN NO [facility] Work Phone: Start: 07-17-2023 End: 07-17-2023 Departed Referred PHYSICIAN NO [facility] Path [facility] Start: 05-23-2023 End: 05-23-2023 ambulatory DENG BALLARD Not Available Start: 03-20-2023 ambulatory Facility: [facility] Start: 03-16-2023 End: 03-16-2023 Emergency department patient visit [facility] Start: 04-22-2022 End: 05-10-2022 ambulatory Facility:[id number] Start: 03-29-2022 End: 04-12-2022 ambulatory Facility:[id number] Start: 09-03-2021 End: 09-05-2021 Subsequent hospital visit by physician Jack Zaldivar [facility] Comment on above: Pain Start: 12-22-2020 (URG) Urgent Care Visit Latoya trujillo [facility] Start: 07-01-2020 Patient encounter procedure WILDER ORTIZ Facility: Start: 03-31-2020 End: 03-31-2020 Patient encounter procedure DYLAN PRUITT [facility] Start: 03-31-2020 End: 03-31-2020 Subsequent hospital visit by physician Dylan Pruitt Work Phone: [facility] [place] Comment on above: Acute post-operative pain (Primary Dx) Start: 03-27-2020 End: 03-28-2020 Patient encounter procedure SHIRLEY KING [facility] Start: 03-27-2020 End: 03-27-2020 Subsequent hospital visit by physician [facility] Covid Screening Schedule [place] Covid Screening Comment on above: Preop testing (Prima ry Dx) Start: 03-26-2020 Encounter for other preprocedural examination [facility] Start: 03-22-2020 End: 03-23-2020 [facility] encounter procedure [facility] [place]: Encounter for other preprocedural examination [facility] Procedures Date Procedure Procedure Detail Performing Clinician Start: 09-03-2021 Radex foot complete minimum 3 views Nadeen Rodriguez APRN - HEEL TRIMMER Work Phone: Start: 03-31-2020 Urine test visual color cmprsn meths Dylan Pruitt Work Phone: Plan of Treatment Date Care Activity Detail Author Start: 11-10-2021 Influenza vaccination Flu vacc ine (Season Ended) [facility] Start: 04-05-2020 End: 04-05-2020 Office Visit 04/05/2020 Office Visit Plastic Surgery Dylan Pruitt MD [address] [place] [address] [phone] [facility] Start: 03-31-2020 End: 03-31-2020 Hospital Encounter [facility] [place] Comment on above: BREAST MAMMOPLASTY R EDUCTION Start: 03-27-2020 End: 03-26-2021 [facility] [place] [place] Comment on above: Expected: 03/27/2020 , Expires: 03/26/2021 Once for 1 Occurrenc es starting 03/27/2020 until 03/27/2020 Start: 11-11-2019 Influenza vaccination Flu vaccine (# 1) [place] Start: 09-20-2011 [facility] Start: 2002 Screening for malign ant neoplasm of cervix [facility] Start: 2000 DTaP/Tdap/Td vaccine (1 - Tdap) DTaP/Tdap/Td vaccine (1 - Tdap) [facility] Start: 09-20-1999 Hepatitis C screening Hepatitis C sc reen [facility] Start: 1996 HIV screening HIV screen [facility] Start: 1993 Depression Screen Depression Screen [facility] Start: 1986 COVID-19 Vaccine (1) COVID-19 Vaccin e (1) [facility] Start: 1982 Varicella vaccine (1 of 2 - 2-dose childhood series) Varicella vaccine (1 of 2 - 2-dose childhood series) [facility] Start: 1980 Hepatitis C screening Hepatitis C sc reen [place], [place] End: 03-31-2020 Blood glucose - POCT Blood glucose - POCT Point of Care Testing Routine One Time for 1 Occurrences starting 03/31/2020 until 03/31/2020 [place], [place] Comment on above: One Time for 1 Occur rences starting 03/31/2020 until 03/31/2020 COVID-19 COVID-19 Lab Rou david 03/27/2020 1:13 PM EST [place], [place] Oxygen therapy [[facility] Data Set] Initiate Oxygen Therapy Protocol Respiratory Care Routine Daily until discontinued starting 03/31/2020 [place] Comment on above: Daily until disconti nued starting 03/31/2020 Phase I & II - meter ed glucose Phase I & II - metered glucose Point of Care Testing Routine As Needed until discontinued starting 03/31/2020 [place] Comment on above: As Needed until disc ontinued starting 03/31/2020 End: 03-31-2020 , urine POCT , urine POCT Point of Care Testing Routine One Time for 1 Occurrences starting 03/31/2020 until 03/31/2020 [place] Comment on above: One Time for 1 Occur rences starting 03/31/2020 until 03/31/2020 Surgical Pathology Surgical Path ology Lab Routine Release Upon Ordering for 1 Occurrences starting 03/31/2020 [place] Comment on above: Release Upon Orderin g for 1 Occurrences starting 03/31/2020 Payers Date Payer Category Payer Unknown [id number] [id number] 1980 Unknown [id number] 1981 Unknown [id number] 2.16.84 [id number] 1981 Unknown [id number] 2.16.84 [id number] 1981 Unknown [id number] 2.16.8 [id number] 1981 Unknown [id number] 2.16.84 [id number] 1981 Unknown [id number] 2.16.84 [id number] 1959 Private Health Insurance [id number] 1959 Self-pay Private Health Insurance [id number] Unknown [id number] [id number] [id number] Social History Date Type Detail Facility Start: 03-22-2020 End: 03-31-2020 Tobacco smoking status NHIS Former smoker [place] Start: 07-18-2023 End: 12-30-2019 History of tobacco use Current [place] End: 12-30-2019 History of tobacco use Cigarette [place]oker [place] Start: 03-22-2020 End: 03-31-2020 Cigarettes smoked current (pack per day) - Reported [place] Start: 03-22-2020 End: 03-31-2020 Tobacco use and exposure Never used [place] Start: 03-31-2020 End: 05-05-2020 Alcohol intake Current drinker of alcohol (finding) [place] Start: 11-25-2019 History SDOH Alcohol Frequency 3 [place] Start: 03-31-2020 Alcohol Comment social [place] Start: 1980 Sex Assigned At Not on file [facility] [place] Exposure to SARS-CoV -2 (event) Not sure [place] Sex Assigned At Sex Assigned At Bir th [facility] Other Start: 03-31-2020 History SDOH Alcohol Comment social [facility] Invaluable Phone: Start: 1980 Sex Assigned At Female F [facility] Evaluation note 12-22-2020 Note Date & Type [...] Patient care instructions given in writting by [facility] Care At Home document. Additional time spent conducting pre-visit phone call, screening for symptoms, instructions on social distancing, application and removal of PPE, and cleaning of examination room, equipment and supplies was preformed. Patient education given for testing methodology and results. Patient care instructions given in writting by [facility] Care At Home document. [employer] Other Evaluation note Note Date & Type Note Facility Evaluation note Diagnosis Pain Generalized pain documented in this encounter [facility] Invaluable Phone: Evaluation note Note Date & Type Note Facility Evaluation note No assessment information availa [facility] Work Phone: History general Narrative - Reported Note Date & Type Note Facility History general Narrative - Reported Type Medical History chronic depression Surgical History C section Surgical History tonsillectomy Surgical History essure [facility] Other Discharge Instructions * Instructions* Terra Yates [...] ad fiber intake. You may also take [id number] stool softener. We have found that 2 [...] at the surgery center (3rd entrance) on ___7-03-58 by ___0600 . Please stop any blood [...] drive you home after your procedure. Your pick up driver must be 18 years of age or [...] Documents on File Type Date Recorded Patient Registered Nurse Surgical Services Expl anation ACP-Advance Directive ACP-Power of Tile Grader Documents on File Type Date Recorded Patient Registered Nurse Surgical Services Expl anation ACP-Advance Directive ACP-Power of Tile Grader Advance Directive Response Recorded Date/ Time Advance [...] To Contact Diagnoses Macromastia BILATERAL MACROMASTIA Procedures CT BREAST REDUCTION BREAST MAMMOPLASTY REDUCTION Dylan Pruitt MD [address] [place] [address] [facility] Ordered Prescriptions (unrec ognized section and [...] section and content) DATE CREATED AUTHOR 04/01/[address] [facility] DATE CREATED AUTHOR AUTHOR'S ORGANIZ ATION 04/02/2020 [facility] DATE CREATED AUTHOR AUTHOR'S ORGANIZ ATION 06/23/2020 [facility] DATE CREATED AUTHOR AUTHOR'S ORGANIZ ATION 05/11/2022 [facility] DATE CREATED AUTHOR AUTHOR'S ORGANIZ ATION 03/17/2023 [facility] DATE CREATED AUTHOR AUTHOR'S ORGANIZ ATION 04/29/2023 [facility] DATE CREATED AUTHOR AUTHOR'S ORGANIZ ATION 07/19/2023 [facility] EPIC DATE CREATED AUTHOR AUTHOR'S ORGANIZ ATION 07/20/2023 [facility] Care Teams (unrecognized sec tion and content) Board Attendant Relationship Specialty Start Date End Date Alden Meléndez MD [address] [employer] [address] [address] PCP - General Family Medicine 03/24/20 Board Attendant Relationship Specialty Start Date End Date Alden Meléndez MD [address] [place] [id number] PCP - General Family Medicine 03/24/20 Team [...] BE BASED ON THE PRIMARY CLINICAL RECORDS. [employer] provides no warranty or guarantee of the accuracy or completeness of information in this document.
[2023-07-27 07:34] LABS: Hematocrit 36.9 % (36.0-48.0); Hemoglobin 12.1 g/dL (12.0-16.0); Mean Corpuscular HGB Conc 32.8 g/dL (29.9-35.2); Mean Corpuscular Hemoglobin 29.7 pg (26.7-34.0); Mean Corpuscular Volume 90.4 fL (81.0-99.0); Mean Platelet Volume 9.6 fL (9.5-13.5); Platelet Count 346 10^3/uL (150-450); Red Blood Count 4.08 10^6/uL (4.20-5.40); Red Cell Distribution Width 12.3 % (11.0-15.0); White Blood Count 6.1 10^3/uL (4.0-11.0)
[2023-07-27 07:42] LABS: Amphetamine Screen Urine NEGATIVE (NEGATIVE); Barbiturates Screen Urine NEGATIVE (NEGATIVE); Benzodiazepines Screen Urine NEGATIVE (NEGATIVE); Buprenorphine Screen Urine NEGATIVE (NEGATIVE); Cannabinoid Screen Urine NEGATIVE (NEGATIVE); Cocaine Screen Urine NEGATIVE (NEGATIVE); Methadone Screen Urine NEGATIVE (NEGATIVE); Methamphetamines Screen Urine NEGATIVE (NEGATIVE); Opiate Screen Urine POSITIVE (NEGATIVE); Oxycodone Screen Urine NEGATIVE (NEGATIVE); Phencyclidine Screen Urine NEGATIVE (NEGATIVE); Tricyclic Antidepressant Urine NEGATIVE (NEGATIVE)
[2023-07-27 07:54] LABS: HCG Quantitative <1 mIU/mL
[2023-07-27] MEDS: SCOPOLAMINE 1 MG/3 DAYS TRANSDERM PATCH 1 PATCH TD (08:28)
[2023-07-27] MEDS: LACTATED RINGER'S SOLUTION 1,000 ML 50 ML IV (08:28)
[2023-07-27] MEDS: FAMOTIDINE/PF 20 MG/2 ML VIAL IV (08:28)
[2023-07-27] MEDS: LACTATED RINGER'S SOLUTION 1,000 ML 1000 ML IV (10:32)
--- NOTE | 2023-07-27 10:59 | XR_ITS ---
[address] [address] Patient Name: ДМИТРИЙ NAVARRO MRN: [id number] date: 1980 Sex: F Assigned [facility] Current Patient Location: [facility] Accession/Order Number: [id number] Exam Date: 07/27/2023 11:30 Report Date: 07/27/2023 11:47 At the request of: DENG SANTANA Procedure: XR abdomen 1V EXAMINATION: XR abdomen 1V HISTORY: post op COMPARISON: No relevant comparison available. FINDINGS: BOWEL GAS PATTERN: No abnormal dilation or deviation. CALCIFICATIONS: None significant. OTHER: Negative. No abnormal gaseous collections. XR/XR abdomen 1V IMPRESSION: No metallic foreign bodies observed to suggest a retained tubal closure device Electronically authenticated by: WILDER ORTIZ Date: 07/27/2023 11:47
--- NOTE | 2023-07-27 11:03 | PM.ONB ---
Brief Operative Note Date of procedure: 07/27/23 Pre-op diagnosis general: menorrhagia, dysmenorrhea, pelvic pain, dyspareunia, desires salpingectomy Procedure: NAME OF PROCEDURE: robotic assisted Laparoscopic bilateral salpingectomy with removal of essure coils, with Alisha endometrial ablation with hysteroscopy PROCEDURE: The patient was taken back to the OR where she was prepped and draped in the normal sterile fashion after being placed in the dorsal lithotomy position, after being placed under general anesthesia without difficulty. a weighted speculum was then placed into the vagina. Pap and endometrial bx were performed without difficultyThe anterior lip was grasped with a single tooth tenaculum. The patient was then sounded to approximatley 9cm. The patient was gently sounded using Hegar dilators and the hysteroscope was passed through the cervix into the uterus where both ostia were seen. No gross evidence of polyps, fibroids or malignancy. The cervical length was noted to be 4cm. The Alisha ablation apparatus was set to approximately 5cm in length. This was placed in through the cervix and into the uterus. After the seal was tested, at that time the total ablation of 120 seconds was performed with the Alisha without difficulty. All instruments were removed from the vagina. A wet sponge stick was placed into the patient's vagina. Attention was then turned to the patient's abdomen, where a scalpel was used to make a small infraumbilical incision. The S retractors were then used to dissect the underlying layers until the fascia could be seen. The fascia was then grasped with Samantha clamps and tented up. A knife was then used to make a small incision to the fascia. The muscle was identified, at that time two sutures of #0 Vicryl on a GI needlewas then used and placed through the fascia. The peritoneum was then identified and entered bluntly. The 10-4 Radha was then placed into the patient's abdomen. This was confirmed with direct visualization of the bowel, using the laparoscope. The patient's abdomen was then insufflated using approximately 4 liters of CO2 gas. Survey of the patient's abdomen demonstrated normal appearing ovaries, uterus and tubes. A second and third lateral robotic ports, which was 8mm in size, was then placed laterally after incision was made in the skin under direct visualization. the robotic arms were engaged. The patient's tube on the patient's right side was identified. The tube was then tented up using a grasper. The vessel sealer was used to transect and coagulate the mesosalpingx from the fimbriated end to the insertion at the uterus, the tube was amputated and removed in its entirety.?The essure coils were very coiled up in the proximal end of the tube, it appears they were removed in there entirety Excellent hemostasis was noted. ?This was performed on the contralateral sideas well. The lateral ports were then moved under direct visualization with excellent hemostasis. The abdomen was deinsufflated. All instruments were removed from the patient's abdomen. The fascia was closed using the #0 Vicryl on GI needle. The skin was closed using 4-0 Vicryl subcuticularly. All instruments were removed from the patient's vagina as well. The patient was taken out of the dorsal lithotomy position and placed in the supine position and taken to recovery in stable condition. Sponge, lap and needle counts were correct x2. ??? Anesthesia: MAX Surgeon: Chris Ballard Electrical Sign Servicer: Sade Snider Estimated blood loss (mL): 5 Pathology: other (tubes and coils) Condition: stable Disposition: PACU Urinary Catheter Management Urinary Catheter Management Urethral: Cath placed during this visit: no
[2023-07-27] MEDS: HYDROCODONE/ACET 5-325 MG TABLET 1 TAB PO (11:56)
[2023-07-27] MEDS: PROMETHAZINE HCL 25 MG/ML VIAL IM (12:26)
[2023-07-27] MEDS: MEPERIDINE HCL/PF 25 MG/ML VIAL IM (12:26)
[2023-07-27] MEDS: LACTATED RINGER'S SOLUTION 1,000 ML 150 ML IV ×2 (12:38→13:11)
--- NOTE | 2023-07-27 12:46 | PC.NURSE ---
07/27/2023 ([id number])- Dr. Balalrd aware of patient's pain and nausea. New orders received. Patient medicated.
--- NOTE | 2023-07-27 14:30 | PC.NURSE ---
1410 PATIENT URINATED WIED WITH A TINGE OF BLOOD ON TOILET PAPER
== END 2023-07-27 14:27 | disposition home or self-care (01) ==
PROVIDERS: Anesthesiology; Visit Provider Obstetrics & Gynecology
PROC: (CPT 00840; principal; 2023-07-27 08:30)
PROC: (CPT 00840; 2023-07-27 08:30)
DX: Z30.2 Encounter for sterilization (principal); N92.0 Excessive and frequent menstruation with regular cycle; N93.9 Abnormal uterine and vaginal bleeding, unspecified; R10.2 Pelvic and perineal pain; F17.290 Nicotine dependence, other tobacco product, uncomplicated
CPT/HCPCS: 00840; 00952; 58563; 58661; 36415; 71045; 74018; 80307; 84702; 85027; 88300; 88302; J1094; J2704

== ENCOUNTER 2024-01-01 09:03 | Outpatient (OUT) | payer OTHER, SELFPAY ==
--- OUTSIDE RECORDS SUMMARY | 2024-01-01 09:19 | XMS_ITS | CCD ---
Author Organization [facility] Care Team Providers Care 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 Name Role Phone Alden Meléndez Primary Care [...] Attending Unavailable ALDEN MELÉNDEZ Primary Care Unavailable NO FAMILY, PHYSICIAN Primary Care Provider Unava ilable Chris Ballard Attending Provider [phone] Chris Ballard Admitting Unavailable Chris Ballard Attending Unavailable NO FAMILY, PHYSICIAN Primary Care Unavailable Chris Ballard Attending Unavailable Chris Ballard Admitting Unavailable ALDEN MELÉNDEZ Primary Care Physician [phone] Elin, Astrit H Attending Unavailable Haeloy, Astrit H Attending Unavailable Unavailable Primary Care Provider UnavailCHRIS Avalos Attending Unavailable CHRIS BALLARD Attending Unavailable VIVIANA DOWLING Attending Unavailable VIVIANA DOWLING Attending Unavailable CHRIS BALLARD Attending Unavailable Allergies Allergy Classification Reported Allergen(s) Allergy Type Date of Onset Reaction(s) Facility (6 sources) Acetaminophen / oxyCODONE Drug Allergy 03-22-19 21 [facility], [place] (10 sources) Cephalexin; Translations: [cephalexin] Drug Allergy 10-04-19 19 Hives, Itching, Swelling, Rash, Unknown [place], [place] (11 sources) Codeine; Translations: [codeine] Drug Allergy 10-04-19 19 Nausea And Vomiting, Unknown [place], [place] (4 sources) Penicillins Propensity to adverse reactions to drug 11-25-19 Other (See Comments) [place] (6 sources) Propoxyphene Drug Allergy 10-04-19 Nausea And Vomiting [place], [place] (2 sources) Cephalexin; Translations: [Keflex] Drug Allergy [facility] (1 source) Codeine Drug Allergy [facility] (3 sources) Penicillin; Translations: [penicillin] Drug Allergy [facility] (1 source) Darvocet-N 100 Drug allergy (disorder) [facility] (6 sources) Penicillin G Benzathine; Translations: [penicillin G benzathine] Drug allergy 12-23-19 [facility] (1 source) Cephalexin Drug Allergy 12-23-19 [facility] (1 source) Codeine Drug Allergy 12-23-19 [facility] (2 sources) Acetaminophen / oxyCODONE; Translations: [acetaminophen-ox ycodone] Drug Allergy [facility] (2 sources) acetaminophen / propoxyphene; Translations: [acetaminophen-pr opoxyphene] Drug Allergy [facility] (2 sources) Penicillin G Drug Allergy 11-15-[address] [facility] (2 sources) Penicillins Drug Intolerance 10-04-19 [facility] (2 sources) Other Allergy to substance 11-15-[address] [facility] Medications Current Medications Medication Drug Class(es) Dates [...] THREE TIMES DAILY NEEDED 0 11/03/2019 Active atomoxetine 80 mg oral capsule (2 sources) Norepinephrine Reuptake Inhibitor Strattera 80 MG capsule 1 (one) time each day at the same time Active 24 hr buPROPion hydrochloride 300 mg [...] (1 source) Start: 03-31-2020 lactated ringers infusion cetirizine hydrochloride 10 mg oral tablet (2 sources) Histamine-1 Receptor Antagonist Start: 09-11-2023 cetirizine (ZyrTEC) 10 MG tablet 1 (one) time each day at the same time 09/11/2023 Active ciprofloxacin 500 mg oral tablet (1 source) [...] Start: 03-31-2020 fentaNYL (SUBLIMAZE) injection 25 mcg gabapentin 300 mg oral capsule (2 sources) Anti-epileptic Agent Start: 09-26-2023 take 1 capsule by mouth every twelve hours gabapentin (Neurontin) 300 MG capsule 1 capsule every 12 (twelve) hours 09/26/2023 Active 1 ml hydrALAZINE hydrochloride 20 mg/ml injection (1 source) Arteriolar Vasodilator Start: 03-31-2020 hydrALAZINE (APRESOLINE) injection 5 mg 1 ml HYDROmorphone hydrochloride 1 mg/ml cartridge (1 source) Opioid Agonist Start: 03-31-2020 HYDROmorphone (DILAUDID) injection 0.5 mg ibuprofen 800 mg oral tablet (6 sources) Nonsteroidal Anti-inflammatory Drug Start: 07-27-2023 take 1 tablet by mouth every eight hours ibuprofen 800 MG tablet Take 800 mg by mouth every 8 (eight) hours 07/27/2023 Active Start: 10-30-2019 take 1 tablet by andreas th three times daily as needed ibuprofen (ADVIL;MOTRIN) 800 MG tablet TAKE 1 TABLET BY MOUTH THREE TIMES DAILY NEEDED 0 10/30/2019 Active 1 ml meperidine hydrochloride 50 mg/ml injection (1 source) Opioid Agonist Start: 03-31-2020 meperidine (DE MEROL) injection 12.5 mg 30 ml morphine sulfate 1 mg/ml injection (1 source) Opioid Agonist Start: 03-31-2020 morphine (PF) injection 1 mg 1 ml promethazine hydrochloride 25 mg/ml injection (1 source) Phenothiazine Start: 03-31-2020 End: 03-31-2020 promethazine (PHENERGAN) injection 6.25 mg 1000 ml sodium chloride 9 mg/ml injection (3 sources) Start: 03-31-2020 0.9 % sodium c hloride infusion Start: 03-31-2020 sodium chlorid e flush 0.9 % injection 10 mL sulfamethoxazole 800 mg / trimethoprim 160 mg oral tablet (1 source) Dihydrofolate Reductase Inhibitor Antibacterial, Sulfonamide Antimicrobial Start: 10-02-2023 End: 10-07-2023 Bactrim D.S. 800 mg-160 mg Tab 1 tab(s), Oral, BID for 5 day(s), 10 tab(s), Refill(s) 0, [facility]pharm[facility] #[id number], 165, cm, 10/02/23 17:37:00 EDT, Height/Length Dosing, 70.5, kg, 10/02/23 17:37:00 EDT, Weight Dosing Start Date: 10/02/23 Stop Date: 10/07/23 Status: Ordered Syringe, Disposable, 3 ML misc (2 sources) Start: 12-18-2022 Syringe, Dispo sable, 3 ML misc as directed q2 weeks for 30 days 12/18/2022 Active 24 hr topiramate 200 mg extended release oral capsule (2 sources) Start: 06-08-2022 Topiramate ER (Trokendi XR) 200 MG capsule sustained-release 24 hr 1 capsule 1 (one) time each day at the same time 06/08/2022 Active vitamin b12 1 mg/ml injectable solution (2 sources) Vitamin B12 cyanocobalamin (Vitamin B-12) 1000 MCG/ML injection 1 mL Injection [id number] for 30 days Active Completed/Discontinued Medications Medication Drug Class(es) Dates Sig (Normalized) Sig (Original) dicyclomine hydrochloride 20 mg oral tablet (2 sources) Anticholinergic End: 12-11-2023 take 1 tablet by mouth three times daily before mealtime dicyclomine (Bentyl) 20 MG tablet TAKE 1 TABLET BY MOUTH THREE TIMES A DAY BEFORE MEALS for 30 12/11/2023 Discontinued famotidine 20 mg oral tablet (2 sources) Histamine-2 Receptor Antagonist Start: 03-16-2023 End: 12-11-2023 take 1 tablet by mouth in the morning famotidine (Pepcid) 20 MG tablet Take 1 tablet by mouth in the morning and 1 tablet before bedtime. 03/16/2023 12/11/2023 Discontinued gentian bridger 10 mg/ml topical solution (1 [...] % 150 mL with bupivacaine-EPINEPHrine (MARCAINE-w/EPINEPHRINE) 0.5% -1:[id number] 40 mL, lidocaine-EPINEPHrine 50 mL (1 source) Start: 03-31-2020 End: 03-31-2020 sodium chloride 0.9 % 150 mL with bupivacaine-EPINEPHrine (MARCAINE-w/EPINEPHRINE) 0.5% -1:767613 40 mL, lidocaine-EPINEPHrine 50 mL spironolactone 100 mg oral tablet (2 sources) Aldosterone Antagonist Start: 12-18-2022 End: 12-11-2023 spironolactone (Aldactone) 100 MG tablet 1 (one) time each day at the same time 12/18/2022 12/11/2023 Discontinued Problems Active Problems Problem Classification Problem Date Documented Da te Episodic/Chronic Abdominal pain (3 sources) Generalized abdominal pain; Translations: [Generalized abdominal pain] Onset: 03-16-2023 Episodic Menstrual disorders (2 sources) Menorrhagia; Translations: [Excessive and frequent menstruation with regular cycle] 12-11-2023 Chronic Nausea and vomiting (1 source) Nausea with vomiting, unspecified; Translations: [Nausea with vomiting, unspecified] Onset: 03-16-2023 Episodic Nonmalignant breast conditions (1 source) Mastodynia; Translations: [MASTODYNIA] Onset: 03-26-2020 Episodic Other female genital disorders (1 source) Pain in female genitalia on intercourse; Translations: [Unspecified dyspareunia] 12-11-2023 Chronic Other gastrointestinal disorders (1 source) Diarrhea, unspecified; Translations: [Diarrhea, unspecified] Onset: 03-16-2023 Episodic Other nervous system disorders (1 source) Acute postoperative pain; Translations: [Acute post-operative pain] Episodic Ovarian cyst (1 source) Cyst of right ovary; Translations: [Unspecified ovarian cyst, right side] Onset: 10-02-2023 Episodic Residual codes; unclassified (1 source) Pain; Translations: [Pain, unspecified] Episodic Unclassified (1 source) Patient encounter status; Translations: [Preop testing] Urinary tract infections (1 source) Urinary tract infectious disease; Translations: [Urinary tract infection, site not specified] Onset: 10-02-2023 Episodic Past or Other Problems Problem Classification Problem [...] Test Name Value Interpretation Reference Range Facility CT Abdomen/Pelvis w/ Contras ton 10-03-2023 CT Abdomen/Pelvis w/ Contrast Exam Date/Time: 10/02/2023 20:15 EDT Reason for Exam: Pain Report IMPRESSION: NO ACUTE ABDOMINOPELVIC PROCESS. FOCAL WALL THICKENING OF A PORTION OF THE CECUM PERSIST ON DELAYED IMAGING AND IS LIKELY DUE TO PERISTALSIS HOWEVER COLONOSCOPY IS RECOMMENDED TO EXCLUDE COLON MASS. EXAM: CT Abdomen/Pelvis w/ Contrast History: Abdominal pain Technique: Multiple contiguous axial images were obtained of the abdomen and pelvis from the level of the lung bases through the ischial tuberosities with contrast. Multiplanar reformats were obtained. Delayed images were obtained. Unless otherwise stated, incidental findings identified in this report do not require routine follow-up imaging. Comparison: None available Findings: Lung bases are clear. The liver, gallbladder, spleen, stomach, pancreas, and adrenal glands are within normal limits. The kidneys enhance uniformly. No urinary tract calculi or hydronephrosis. Urinary bladder is well distended. The uterus is present. A 4.4 cm right adnexal cystic structure is most likely an ovarian cyst Abdominal aorta is nonaneurysmal. No retroperitoneal or abdominal/pelvic lymphadenopathy. No small bowel obstruction. There is focal wall thickening of a portion of the cecum that persists on delayed imaging. No pericolonic inflammation. Appendix is within normal limits. No free fluid or free air. No acute osseous abnormality. Degenerative changes of the lower lumbar spine. All CT scans at this facility use dose modulation, iterative reconstruction, and/or weight based dosing when appropriate to reduce radiation dose to as low as reasonably achievable. Report Ordering Provider: Adina Tripathi FINAL REPORT Dictated: 10/03/2023 9:08 am Ky Hinton DO Signed (Electronic Signature): 10/03/2023 9:08 am Signed by: Ky Hinton DO Transcribed by: JONNY Technologist: JEREMIAH Technical Comments GFR (mL/min/1/73m2) na Contrast: Isovue 300 Contrast amount in ml's: 100 Rectal Contrast Given? No Normal [facility] ED Note-Physicianon 10-03-19 ED Note-Physician ED Note-Physician Basic Information Time Seen: Deuce JO, Adina Vega 10/02/2023 19:08 Chief Complaint pt. had ALUMINUM POLISHER surgery with Dr. Bush in July to get tubal coils removed that had been recalled. increasing fatigue, cramping, c/o abd. soreness. intermittent N/V. states urine was cloudy white last night. denies fever/chills. History of Present Illness Patient is a 43-year-old female who presents to the ED worsening abdominal pain that began 1 week ago. Patient notes that she had a gynecological procedure by Dr. Ballard in July in which she had tubal coils removed due to them being recalled. She notes since then she had generalized abdominal pain however for the past week it has been worsening with the worst of the pain occurring last night. Patient notes 1 week ago she developed nausea, vomiting, and diarrhea that lasted approximately 1 day. She also complains of urinary frequency and cloudy white urine that she noticed yesterday. Patient denies any nausea/vomiting/diarr hea at this time. She notes she has taken leftover hydrocodone at home for the abdominal pain with relief in symptoms. She notes the pain radiates into her back as well. Review of Systems A 10 point review of systems is negative except as noted above. Medical and Surgical History: Reviewed and noted Social history: Lives at home Family History: Reviewed. Physical Exam Vitals & Measurements T: 36.6 ?C(Oral) HR: 90(Peripheral) RR: 16 BP: 118/83 SpO2: 98% HT: 165 cm WT: 70.5 kg BMI: 25.9 General: The patient appears well and in no apparent distress. Patient is resting comfortably on cart. Skin: Warm, dry, no pallor noted. Head: Normocephalic, atraumatic Eye: PERRLA, EOMI ENT: Moist mucus membranes Cardiovascular: Regular rate normal peripheral perfusion Respiratory: No respiratory distress no accessory muscle use no obvious audible wheezing Chest Wall: no deformity Musculoskeletal: normal ROM, no deformity, no swelling GI: Generalized abdominal tenderness to palpation with guarding, soft no obvious distention. No rebound or rigidity. No CVA tenderness. Neurological: A&O moves all extremities equal strength and symmetry Psychiatric: Cooperative and appropriate Medical Decision Making Patient is a 43-year-old female 2 months status post gynecological removal of tubal coils who presents to the ED worsening abdominal pain that began 1 week ago. Patient is hemodynamically stable. She is being given 1 L normal saline and Toradol while in the ED. Lab work today is unremarkable except for a BUN to creatinine ratio of 22. Urinalysis is positive for urinary tract infection in which the patient is being prescribed Bactrim and given her first dose prior to discharge. Abdomen/pelvis CT shows an incidental small right ovarian corpus luteum but no other acute intra-abdominal processes. My supervising physician found a left ovarian cyst while looking through the CT herself. Based on this I ordered an ultrasound, which showed a 3.8 cm right ovarian cyst with good blood flow. On reevaluation patient noted improvement in pain. She has a follow-up appointment with her family physician scheduled for tomorrow. She is being given a referral to gastroenterology. Patient was educated on taking the entire Bactrim prescription. She denied the need for Zofran prescription. Patient was advised to return to the ED with any worsening symptoms. She is agreeable to plan and all questions were answered. Assessment/Plan Acute UTI (urinary tract infection) (N39.0: Urinary tract infection, site not specified) Generalized abdominal pain (R10.84: Generalized abdominal pain) Ovarian cyst, right (N83.201: Unspecified ovarian cyst, right side) Orders: ketorolac, 15 mg = 0.5 mL, Injection, IV Push, Once, Stop date 10/02/23 19:33:00 EDT, STAT, Start date 10/02/23 19:33:00 EDT, 10/02/23 19:33:00 EDT Sodium Chloride 0.9% intravenous solution, 1,000 mL, Soln-IV, IV, Once, Stop date 10/02/23 19:34:00 EDT, STAT, Start date 10/02/23 19:34:00 EDT, Infuse over 61, minute(s) sulfamethoxazole-trim ethoprim, 1 tab(s), Oral, BID for 5 day(s), 10 tab(s), Refill(s) 0, [id number], 165, cm, 10/02/23 17:37:00 EDT, Height/Length Dosing, 70.5, kg, 10/02/23 17:37:00 EDT, Weight Dosing sulfamethoxazole-trim ethoprim, 1 tab(s), Tab, Oral, Once, Stop date 10/02/23 21:42:00 EDT, STAT, Start date 10/02/23 21:42:[address] Abdomen/Pelvis w/ Contrast US Pelvis Non-OB Complete Medications Administered Given Bactrim D.S. 800 mg-160 mg Tab, 1 tab(s), Oral ketorolac 30 mg/mL Inj 1 mL, 15 mg, IV Push NS 1000 ml Bolus, 1000 mL, IV Disposition Plan Patient Discharge Condition improved Discharge Disposition home Discharge Prescription List Prescriptions Bactrim D.S. 800 mg-160 mg Tab, 1 tab(s), Oral, BID Follow-up With When Contact Information Octavio Mcclain In 3 days 10/05/2023 EDT [address] [facility], [address] [phone] Business (1) Additional Instructions: Call to doris (more content not included)... [facility] Comment on above: Result Comment: Elec tronically Signed By: Adina Tripathi PA-C\.br\Date and Time Signed: 10/02/23 22:49 EDT\.br\Electronically Co-Signed By: Patience Gomes DO\.br\Date and Time Co-Signed: 10/03/23 00:05 EDT US Pelvis Non-OB Completeon 10-03-2023 US Pelvis Non-OB Complete Exam Date/Time: 10/02/2023 22:45 EDT Reason for Exam: Ovarian cyst Report IMPRESSION: NEGATIVE ULTRASOUND OF THE PELVIS. CLINICAL HISTORY: Ovarian cyst. Pelvic pain. History of . COMPARISON: CT performed on the same date COMMENT: Transabdominal images were obtained. The uterus measurements and an estimated volume are: Uterus Length: 10.2 cm Uterus Width: 5.5 cm Uterus Height: 5.1 cm Uterus Volume: 149.2 cm3 Endometrium Thickness: 1.1 cm The uterus is enlarged but otherwise unremarkable. The right ovary measurements and an estimated volume are: Right Ovary Length: 4.6 cm Right Ovary Width: 4.3 cm Right Ovary Height: 2.1 cm Right Ovary Volume: 22.3 cm3 The left ovary measurements and an estimated volume are: Left Ovary Length: 2.2 cm Left Ovary Width: 1.5 cm Left Ovary Height: 1.6 cm Left Ovary Volume: 2.7 cm3 Blood flow is identified in both ovaries. A simple right ovarian cyst measures 3.1 x 3.8 x 2 cm there are no adnexal mass. No free fluid within the pelvis. Ordering Provider: Adina Tripathi FINAL REPORT Dictated: 10/03/2023 10:09 am Ky Hinton DO Signed (Electronic Signature): 10/03/2023 10:09 am Signed by: Ky Hinton DO Transcribed by: JONNY Technologist: CAPRI Technical Comments Transabdominal Ultrasound Performed Normal [facility] BMPon 10-02-2023 Creatinine [Mass/Vol] 0.8 mg/dL Normal 0.5-1.3 [facility] Comment on above: Performed By: #### 2 [id number] #### [facility] [address] [place] [address] Glucose [Mass/Vol] 87 mg/dL Normal 55-199 [facility] Comment on above: Performed By: #### 2 [id number] #### [facility] [address] [place] [address] Urea nitrogen [Mass/Vol] 18 mg/dL Normal 5-21 [facility] Comment on above: Performed By: #### 2 [id number] #### [facility] [address] [place] [address] Urea nitrogen/Creatinine [Mass ratio] 22 No Units High 10-20 [facility] Comment on above: Performed By: #### 2 [id number] #### [facility] [address] [place] [address] Anion gap [Moles/Vol] 10 mmol/L Normal 6-16 [facility] Comment on above: Performed By: #### 2 [id number] #### [facility] [address] [place] [address] Calcium [Mass/Vol] 9.6 mg/dL Normal 8.9-11.1 [facility] Comment on above: Performed By: #### 2 [id number] #### [facility] [address] [place] [address] Chloride [Moles/Vol] 106 mmol/L Normal 101-111 [facility] Comment on above: Performed By: #### 2 [id number] #### [facility] [address] [place] [address] CO2 [Moles/Vol] 24 mmol/L Normal 21-31 [facility] Comment on above: Performed By: #### 2 [id number] #### [facility] [address] [place] [address] Potassium [Moles/Vol] 4.0 mmol/L Normal 3.5-5.3 [facility] Comment on above: Performed By: #### 2 [id number] #### [facility] [address] [place] [address] Sodium [Moles/Vol] 136 mmol/L Normal 135-145 [facility] Comment on above: Performed By: #### 2 [id number] #### [facility] [address] [place] [address] CBC w/ Auto Diffon 4 Basophils/100 WBC (Bld) 1.0 % Normal 0.0-2.0 [facility] Comment on above: Performed By: #### 2 [id number] #### [facility] [address] [place] [address] Basophils/Leukocytes Auto (Bld) [Pure # fraction] 0.1 E9/L Normal 0.0-0.2 [facility] Comment on above: Performed By: #### 2 [id number] #### [facility] [address] [place] [address] Eosinophils (Bld) [#/Vol] 0.3 E9/L Normal 0.0-0.5 [facility] Comment on above: Performed By: #### 2 [id number] #### [facility] [address] [place] [address] Eosinophils/100 WBC (Bld) 3.3 % Normal 0.0-8.0 [facility] Comment on above: Performed By: #### 2 [id number] #### [facility] [address] [place] [address] Erythrocyte distribution width (RBC) [Ratio] 12.9 % Normal 10.9-14.2 [facility] Comment on above: Performed By: #### 2 [id number] #### [facility] [address] [place] [address] Hematocrit (Bld) [Volume fraction] 39.6 % Normal 34.0-46.0 [facility] Comment on above: Performed By: #### 2 [id number] #### [facility] [address] [place] [address] Hemoglobin (Bld) [Mass/Vol] 13.8 g/dL Normal 12.0-16.0 [facility] Comment on above: Performed By: #### 2 [id number] #### [facility] [address] [place] [address] Lymphocytes (Bld) [#/Vol] 1.7 E9/L Normal 1.0-4.0 [facility] Comment on above: Performed By: #### 2 [id number] #### [facility] [address] [place] [address] Lymphocytes/100 WBC (Bld) 17.6 % Normal 14.0-50.0 [facility] Comment on above: Performed By: #### 2 [id number] #### [facility] [address] [place] [address] MCH (RBC) [Entitic mass] 31.5 pg Normal 27.0-34.0 [facility] Comment on above: Performed By: #### 2 [id number] #### [facility] [address] [place] [address] MCHC (RBC) [Mass/Vol] 34.8 g/dL Normal 31.4-36.0 [facility] Comment on above: Performed By: #### 2 [id number] #### [facility] [address] [place] [address] MCV (RBC) [Entitic vol] 90.5 fL Normal 80.0-100.0 [facility] Comment on above: Performed By: #### 2 [id number] #### [facility] [address] [place] [address] Monocytes (Bld) [#/Vol] 1.0 E9/L Normal 0.2-1.0 [facility] Comment on above: Performed By: #### 2 [id number] #### [facility] [address] [place] [address] Neutrophils (Bld) [#/Vol] 6.5 E9/L Normal 2.0-7.5 [facility] Comment on above: Performed By: #### 2 [id number] #### [facility] [address] [place] [address] Neutrophils/100 WBC (Bld) 68.1 % Normal 36.0-75.0 [facility] Comment on above: Performed By: #### 2 [id number] #### [facility] [address] [place] [address] Platelet 357.0 E9/L Normal 150.0-500.0 [facility] Comment on above: Performed By: #### 2 [id number] #### [facility] [address] [place] [address] Platelet mean volume (Bld) [Entitic vol] 7.9 fL Normal 6.4-10.8 [facility] Comment on above: Performed By: #### 2 [id number] #### [facility] [address] [place] [address] RBC (Bld) [#/Vol] 4.4 E12/L Normal 4.3-5.9 [facility] Comment on above: Performed By: #### 2 [id number] #### [facility] [address] [place] [address] WBC corrected for nucl RBC Auto (Bld) [#/Vol] 9.5 E9/L Normal 4.0-11.0 [facility] Comment on above: Performed By: #### 2 [id number] #### [facility] [address] [place] [address] CHEMISTRYOrdered By: SYSTEM SYSTEM on 10-02-2023 Albumin [Mass/Vol] 4.1 g/dL Normal 3.3 - 5.0 gm/dL Remisol Chem Albumin/Globulin [Mass ratio] 1.3 {ratio} Normal 1.1 - 2.2 Remisol Chem ALP [Catalytic activity/Vol] 51 [iU]/d Normal 21 - 98 Int._Unit/L Remisol Chem ALT No additional P-5'-P [Catalytic activity/Vol] 11 [iU]/d Normal 6 - 46 Int._Unit/L Remisol Chem Anion gap [Moles/Vol] 10 mmol/L Normal 6 - 16 mEq/L Remisol Chem AST [Catalytic activity/Vol] 14 [iU]/d Normal 5 - 43 Int._Unit/L Remisol Chem Bilirubin [Mass/Vol] 0.9 mg/dL Normal 0.0 - 1 .1 mg/dL Remisol Chem Bilirubin.direct [Mass/Vol] 0.1 mg/dL Normal 0.0 - 0.4 mg/dL Remisol Chem Bilirubin.indirect [Mass or moles/Vol] 0.8 mg/dL Normal 0.1 - 0.9 mg/dL Remisol Chem Calcium [Mass/Vol] 9.6 mg/dL Normal 8.9 - 11. 1 mg/dL Remisol Chem Chloride [Moles/Vol] 106 mmol/L Normal 101 - 1 11 mmol/L Remisol Chem CO2 [Moles/Vol] 24 mmol/L Normal 21 - 31 mmol/L Remisol Chem Creatinine [Mass/Vol] 0.8 mg/dL Normal 0.5 - 1.3 mg/dL Remisol Chem eGFR 94 mL/min/1.73 m2 Normal >=59mL/min /1 .73 m2 Remisol Chem Globulin (S) [Mass/Vol] 3.2 g/dL Normal 1.4 - 4.0 gm/dL Remisol Chem Glucose [Mass/Vol] 87 mg/dL Normal 55 - 199 mg/dL Remisol Chem Lipase [Catalytic activity/Vol] 14 U/L Normal 13 - 58 unit/L Remisol Chem Potassium [Moles/Vol] 4.0 mmol/L Normal 3.5 - 5.3 mmol/L Remisol Chem Protein [Mass/Vol] 7.3 g/dL Normal 6.0 - 7.8 gm/dL Remisol Chem Sodium [Moles/Vol] 136 mmol/L Normal 135 - 145 mmol/L Remisol Chem Urea nitrogen [Mass/Vol] 18 mg/dL Normal 5 - 21 mg/dL Remisol Chem Urea nitrogen/Creatinine [Mass ratio] 22 mg/mg High 10 - 20 Remisol Chem ED Clinical Summaryon 2023 ED Clinical Summary ED Clinical Summary [place] [id number] ED Clinical Summary Person Information Name: MONIKA HDZ/[facility] Age: 43 Years : 1980 Sex: Female Language: Vietnamese PCP: ALDEN MELÉNDEZ DO Marital Status: Single Visit Id: Visit Reason: Dysuria; Nausea; Pelvic pain; Weakness or fatigue; AB PAIN,CRAMPS,MILKEY PEE Speciality: Acuity: 3 Enc Type: Emergency Med Service: Emergency Arrival: 10/02/2023 16:52:16 Discharge: 10/02/2023 22:52:52 LOS: 000 06:00 Checkin: 10/02/2023 16:52:16 Checkout: 10/02/2023 22:52:52 Dispo Type: Home (Routine DC) EVENTS: Event Name Event Status Request Date/Time Start Date/Time Complete Date/Time Arrive Complete 10/02/2023 16:52:16 10/02/2023 16:52:16 10/02/2023 16:52:16 Document Home Meds Request 10/02/2023 16:52:16 Triage Complete 10/02/2023 16:52:16 10/02/2023 17:37:28 10/02/2023 17:37:28 Registration Complete 10/02/2023 17:08:26 10/02/2023 17:08:26 10/02/2023 17:08:26 Reg Complete Request 10/02/2023 17:08:26 Reg Bed Request Complete 10/02/2023 17:08:26 10/02/2023 17:08:26 10/02/2023 17:08:26 EKG Cancel 10/02/2023 17:36:47 10/02/2023 19:28:11 Pending Labs Complete 10/02/2023 17:37:53 10/02/2023 18:01:07 Pending Labs Complete 10/02/2023 17:43:26 10/02/2023 18:27:09 Lab Complete 10/02/2023 17:43:26 10/02/2023 18:27:09 Urine Collect Complete 10/02/2023 17:43:26 10/02/2023 18:00:15 Pending Labs Complete 10/02/2023 17:58:55 10/02/2023 17:58:55 10/02/2023 18:27:09 Lab Complete 10/02/2023 17:58:55 10/02/2023 17:58:55 10/02/2023 18:27:09 Pending Labs Complete 10/02/2023 17:59:19 10/02/2023 17:59:19 10/02/2023 17:59:19 Pending Labs Inlab 10/02/2023 18:01:08 10/02/2023 18:01:08 Lab Inlab 10/02/2023 18:01:08 10/02/2023 18:01:08 Bed Assign Complete 10/02/2023 19:04:52 10/02/2023 19:04:52 10/02/2023 19:04:52 Dr Exam Complete 10/02/2023 19:04:52 10/02/2023 19:08:39 10/02/2023 19:08:39 RN Exam Complete 10/02/2023 19:04:52 10/02/2023 20:49:32 10/02/2023 20:49:32 Registration Complete 10/02/2023 19:08:39 10/02/2023 19:37:24 10/02/2023 19:37:24 Dr Exam Complete 10/02/2023 19:10:06 10/02/2023 19:10:06 10/02/2023 19:10:06 CT Complete 10/02/2023 19:28:27 10/02/2023 19:29:44 10/02/2023 20:15:47 Meds Admin Complete 10/02/2023 19:34:03 10/02/2023 19:56:25 Meds Admin Complete 10/02/2023 19:34:43 10/02/2023 19:56:26 US Complete 10/02/2023 21:29:06 10/02/2023 22:07:14 10/02/2023 22:45:34 Meds Admin Complete 10/02/2023 21:42:30 10/02/2023 22:01:11 Discharge Complete 10/02/2023 22:45:46 10/02/2023 22:52:55 10/02/2023 22:52:55 Transfer Complete 10/02/2023 22:52:55 10/02/2023 22:52:55 10/02/2023 22:52:55 ADDRESS: [address] [place] [id number] [facility] DOC NOTES: MEDICAL INFORMATION: Prescriptions Given: New Medications [facility]/pharmacy #[id number], [address] [place], [place] [id number], [phone] sulfamethoxazole-trim ethoprim (Bactrim D.S. 800 mg-160 mg Tab) 1 Tablets By Mouth 2 times a day for 5 Days. Refills: 0. PATIENT EDUCATION INFORMATION: Instructions: Abdominal Pain, Adult, Klky-uo-Gjjg Follow up: With: Address: When: Octavio Mcclain [address] [place] [address], [address], [facility] [address] [place] [phone] Business (1) In 3 days 10/05/2023 Comments: Call to schedule a follow-up appointment with the studio operations manager if symptoms not improve in the next 2 to 3 days. Take the antibiotic in entirety. Return to the ED with any worsening symptoms. With: Address: When: ALDEN MELÉNDEZ [address] [place], [place] [address] [place] [address] Business (1) In 3 days DIAGNOSIS: Acute UTI (urinary tract infection); Generalized abdominal pain; Ovarian cyst, right Normal [facility] ED Patient Summaryon 024 ED Patient Summary ED Patient Summary [address] [address] Patient Discharge Instructions Person Information Name: MONIKA HDZ Age: 43 Years Arrival Date: 10/02/2023 16:52:16 Discharge Diagnosis: Acute UTI (urinary tract infection); Generalized abdominal pain; Ovarian cyst, right Primary Care Physician: ALDEN MELÉNDEZ DO Provider Information Primary Provider: Patience Gomes DO Advanced Resident Director:Adina Tripathi PA-C The exam and treatment you received in the Emergency Department were for an urgent problem and are not intended as complete care. It is important that you follow up with a doctor, nurse practitioner, or physician?s dental office assistant for ongoing care. If your symptoms become worse or you do not improve as expected and you are unable to reach your usual health care provider, you should return to the Emergency Department. We are available 24 hours a day. MONIKA HDZ has been given the following list of patient education materials, prescriptions and follow-up instructions: Follow-up Instructions: With: Address: When: Octavio Mcclain [address] [place] [address], [address], [address] [phone] Business (1) In 3 days 10/05/2023 Comments: Call to schedule a follow-up appointment with the studio operations manager if symptoms not improve in the next 2 to 3 days. Take the antibiotic in entirety. Return to the ED with any worsening symptoms. With: Address: When: ALDEN MELÉNDEZ [address] [place], [place] [id number] Business (1) In 3 days In the event that this physician does not participate in your insurance network, please consult with your insurance company to find a nearby participating provider. Patient Education Materials: Abdominal Pain, Adult, Grce-kg-Plrn A MESSAGE TO ALL PATIENTS REGARDING OPIOIDS PRESCRIPTION OPIOIDS: WHAT YOU NEED TO KNOW Prescription opioids can be used to help relieve czjcekby-lh-gvyfue pain and are often prescribed following a surgery or injury, or for certain health conditions. These medications can be an important part of the treatment but also come with serious risks. It is important to work with your healthcare provider to make sure you are getting the safest, most effective care. WHAT ARE THE RISKS AND SIDE EFFECTS OF OPIOID USE? Prescription opioids carry serious risks of addiction and overdose, especially with prolonged use. An opioid overdose, often marked by slowed breathing, can cause sudden . The use of prescription opioids can have a number of side effects as well, even when taken as directed: ? Tolerance?meaning you might need to take more of the medication for the same pain relief ? Physical dependence?meaning you have symptoms of withdrawal when a medication is stopped ? Increased sensitivity to pain ? Constipation ? Nausea, vomiting, and dry mouth ? Sleepiness and dizziness ? Confusion ? Depression ? Low levels of testosterone that can result in lower sex drive, energy, and strength ? Itching and sweating RISKS ARE GREATER WITH: ? History of drug misuse, substance use disorder, or overdose ? Mental health conditions (such as depression or anxiety) ? Sleep apnea ? Older age (65 years and older) ? Avoid alcohol while taking prescription opioids. Also, unless specifically advised by your health care provider, medications to avoid include: ? Benzodiazepines (such as Xanax or Valium) ? Muscle relaxants (such as Soma or Flexeril) ? Hypnotics (such as Ambien or Lunesta) ? Other prescription opioids KNOW YOUR OPTIONS Talk to your health care provider about ways to manage your pain that don?t involve prescription opioids. Some of these options may actually work better and have fewer risks and side effects. Options may include: ? Pain relievers such as acetaminophen, ibuprofen, and naproxen ? Some medication that are also used for depression or seizures ? Physical therapy and exercise ? Cognitive behavioral therapy, a psychological, goal-directed approach, in which patients learn how to modify physical, behavioral, and emotional triggers of pain and stress. IF YOU ARE PRESCRIBED OPIOIDS FOR PAIN: ? Never take opioids in greater amounts or more often than prescribed. ? Follow up with your primary health care provider. o Work together to create a plan on how to manage your pain. o Talk about ways to help manage your pain that don?t involve prescription opioids. o Talk about any and all concerns and side effects. ? Help prevent misuse and abuse o Never sell or share prescription opioids. o Never use another person?s prescription opioids. ? Store prescription opioids in a secure place and out of reach of others (this may include visitors, children, friends, and family). ? Safely dispose of unused prescription opioids: Find your community drug take-back p (more content not included)... Normal [facility] HEMATOLOGYOrdered By: SYSTEM SYSTEM on 10-02-2023 Basophils/100 WBC (Bld) 1.0 % Normal 0.0 - 2.0 % Remisol Heme Basophils/Leukocytes Auto (Bld) [Pure # fraction] 0.1 E9/L Normal 0.0 - 0.2 E9/L Remisol Heme Eosinophils (Bld) [#/Vol] 0.3 E9/L Normal 0.0 - 0.5 E9/L Remisol Heme Eosinophils/100 WBC (Bld) 3.3 % Normal 0.0 - 8.0 % Remisol Heme Erythrocyte distribution width (RBC) [Ratio] 12.9 % Normal 10.9 - 14.2 % Remisol Heme Hematocrit (Bld) [Volume fraction] 39.6 % Normal 34.0 - 46.0 % Remisol Heme Hemoglobin (Bld) [Mass/Vol] 13.8 g/dL Normal 12.0 - 16.0 gm/dL Remisol Heme Lymphocytes (Bld) [#/Vol] 1.7 E9/L Normal 1.0 - 4.0 E9/L Remisol Heme Lymphocytes/100 WBC (Bld) 17.6 % Normal 14.0 - 50.0 % Remisol Heme MCH (RBC) [Entitic mass] 31.5 pg Normal 27.0 - 34.0 pg Remisol Heme MCHC (RBC) [Mass/Vol] 34.8 g/dL Normal 31.4 - 36.0 gm/dL Remisol Heme MCV (RBC) [Entitic vol] 90.5 fL Normal 80.0 - 100.0 fL Remisol Heme Monocytes (Bld) [#/Vol] 1.0 E9/L Normal 0.2 - 1.0 E9/L Remisol Heme Monocytes/100 WBC (Bld) 10.0 % Normal 4.0 - 14.0 % Remisol Heme Neutrophils (Bld) [#/Vol] 6.5 E9/L Normal 2.0 - 7.5 E9/L Remisol Heme Neutrophils/100 WBC (Bld) 68.1 % Normal 36.0 - 75.0 % Remisol Heme Platelet 357.0 E9/L Normal 150.0 - 500.0 E9/L Remisol Heme Platelet mean volume (Bld) [Entitic vol] 7.9 fL Normal 6.4 - 10.8 fL Remisol Heme RBC (Bld) [#/Vol] 4.4 E12/L Normal 4.3 - 5.9 E12/L Remisol Heme WBC corrected for nucl RBC Auto (Bld) [#/Vol] 9.5 E9/L Normal 4.0 - 11.0 E9/L Remisol Heme Hep Func Panelon 10-02-2023 Albumin/Globulin (S) [Mass conc ratio] 1.3 Normal 1.1-2.2 [facility] Comment on above: Performed By: #### 2 [id number] #### [facility] [address] [place] [address] ALP [Catalytic activity/Vol] 51 Int._Unit/L Normal 21-98 [facility] Comment on above: Performed By: #### 2 [id number] #### [facility] [address] [place] [address] ALT No additional P-5'-P [Catalytic activity/Vol] 11 Int._Unit/L Normal 6-46 [facility] Comment on above: Performed By: #### 2 [id number] #### [facility] [address] [place] [address] AST [Catalytic activity/Vol] 14 Int._Unit/L Normal 5-43 [facility] Comment on above: Performed By: #### 2 [id number] #### [facility] [address] [place] [address] Globulin (S) [Mass/Vol] 3.2 g/dL Normal 1.4-4.0 [facility] Comment on above: Performed By: #### 2 [id number] #### [facility] [address] [place] [address] Protein [Mass/Vol] 7.3 g/dL Normal 6.0-7.8 [facility] Comment on above: Performed By: #### 2 [id number] #### [facility] [address] [place] [address] Albumin [Mass/Vol] 4.1 g/dL Normal 3.3-5.0 [facility] Comment on above: Performed By: #### 2 [id number] #### [facility] [address] [place] [address] Bilirubin [Mass/Vol] 0.9 mg/dL Normal 0.0-1.1 [facility] Comment on above: Performed By: #### 2 [id number] #### [facility] [address] [place] [address] Bilirubin.direct [Mass/Vol] 0.1 mg/dL Normal 0.0-0.4 [facility] Comment on above: Performed By: #### 2 [id number] #### [facility] [address] [place] [address] Bilirubin.indirect [Mass or moles/Vol] 0.8 mg/dL Normal 0.1-0.9 [facility] Comment on above: Performed By: #### 2 [id number] #### [facility] [address] [place] [address] Lipase Levelon 10-02-2023 Lipase [Catalytic activity/Vol] 14 U/L Normal 13-58 [facility] Comment on above: Performed By: #### 2 [id number] #### [facility] [address] [place] [address] SEROLOGYOrdered By: Adina lópez on 10-02-2023 HCG.beta subunit (U) [Moles/Vol] Negative Normal [facility] Man Sero U BetaHcg Qualon 10-02-2023 HCG.beta subunit (U) [Moles/Vol] Negative Normal [facility] Comment on above: Performed By: #### 2 [id number] #### [facility] [address] [place] [address] UA with Cult Rflxon 10-02-19 24 Bilirubin Ql (U) Negative Normal Negative [facility] Comment on above: Performed By: #### 4 [id number] #### [facility] [address] [place] [address] Clarity (U) Clear Normal Clear [facility] Comment on above: Performed By: #### 4 [id number] #### [facility] [address] [place] [address] Color (U) Yellow Normal Yellow [facility] Comment on above: Result Comment: Micr oscopic readings are only performed on those samples that meet specific criteria set forth by [facility]. Performed By: #### 4 [id number] #### [facility] [address] [place] [address] Epithelial cells.squamous Auto (Urine sed) [#/Area] 0-2 Invalid Interpretation Code [facility] Comment on above: Performed By: #### 4 [id number] #### [facility] [address] [place] [address] Glucose Ql (U) Negative Normal Negative [facility] Comment on above: Performed By: #### 4 [id number] #### [facility] [address] [place] [address] Hemoglobin Auto test strip (U) [Mass/Vol] Negative Normal Negative [facility] Comment on above: Performed By: #### 4 [id number] #### [facility] [address] [place] [address] Ketones Auto test strip Ql (U) Negative Normal Negative [facility] Comment on above: Performed By: #### 4 [id number] #### [facility] [address] [place] [address] Leukocyte esterase Auto test strip Ql (U) 250 Donald/uL Abnormal Negative [facility] Comment on above: Performed By: #### 4 [id number] #### [facility] [address] [place] [address] Mucus Auto Ql (U) 1+ [id number] Abnormal Negative [facility] Comment on above: Performed By: #### 4 [id number] #### [facility] [address] [place] [address] Nitrite Auto test strip Ql (U) Negative Normal Negative [facility] Comment on above: Performed By: #### 4 [id number] #### [facility] [address] [place] [address] pH (U) 5.5 [pH] Invalid Interpretation Code 5.0-9.0 [facility] Comment on above: Performed By: #### 4 [id number] #### [facility] [address] [place] [address] Protein Ql (U) Trace Abnormal Negative [facility] Comment on above: Performed By: #### 4 [id number] #### [facility] [address] [place] [address] RBC Ql (U) 0-3 Normal 0-3 [facility] Comment on above: Performed By: #### 4 [id number] #### [facility] [address] [place] [address] Specific gravity (U) [Rel density] 1.029 Invalid Interpretation Code 1.005-1.030 [facility] Comment on above: Performed By: #### 4 [id number] #### [facility] [address] [place] [address] Urobilinogen (U) [Mass/Vol] Negative Normal Negative [facility] Comment on above: Performed By: #### 4 [id number] #### [facility] [address] [place] [address] WBC Auto (Urine sed) [#/Area] 6-15 Abnormal 0-5 [facility] Comment on above: Performed By: #### 4 [id number] #### [facility] [address] [place] [address] Type of Urine collection method Clean Catch Normal [facility] Comment on above: Performed By: #### 4 [id number] #### [facility] [address] [place] [address] URINALYSISOrdered By: SYSTEM SYSTEM on 10-02-2023 Bilirubin Ql (U) Negative Normal Negativemg/ d L [facility] UA Auto SS Clarity (U) Clear (10/02/23 5:39 PM) Normal Clear [facility] UA Auto SS Color (U) Yellow 1 (10/02/23 5:39 PM) Normal Yellow [facility] UA Auto SS Comment on above: Interpretive Data: M icroscopic readings are only performed on those samples that meet specific criteria set forth by [facility]. Epithelial cells.squamous Auto (Urine sed) [#/Area] 0-2 graded/HPF Invalid Interpretation Code [facility] UA Auto SS Glucose Ql (U) Negative Normal Negativemg/d L [facility] UA Auto SS Hemoglobin Auto test strip (U) [Mass/Vol] Negative Normal Negativemg/d L [facility] UA Auto SS Ketones Auto test strip Ql (U) Negative Normal Negativemg/d L [facility] UA Auto SS Leukocyte esterase Auto test strip Ql (U) 250 Donald/uL Donald/uL Invalid Interpretation Code NegativeLeu/ uL [facility] UA Auto SS Mucus Auto Ql (U) 1+ graded/LPF Invalid Interpretation Code Negativegrad ed/LPF [facility] UA Auto SS Nitrite Auto test strip Ql (U) Negative Normal Negativemg/d L [facility] UA Auto SS pH (U) 5.5 *NA* (10/02/23 5:39 PM) Invalid Interpretation Code 5.0 - 9.0 [facility] UA Auto SS Protein Ql (U) Trace mg/dL Invalid Interpretation Code Negativemg/d L [facility] UA Auto SS RBC Ql (U) 0-3 graded/HPF Normal 0-3graded/HP F [facility] UA Auto SS Specific gravity (U) [Rel density] 1.029 *NA* (10/02/23 5:39 PM) Invalid Interpretation Code 1.005 - 1.030 [facility] UA Auto SS Urobilinogen (U) [Mass/Vol] Negative Normal Negativemg/d L [facility] UA Auto SS WBC Auto (Urine sed) [#/Area] 6-15 graded/HPF Invalid Interpretation Code 0-5graded/HP F [facility] UA Auto SS URINALYSISOrdered By: Kait Tejada on 10-02-2023 UA Spec Desc Clean Catch (10/02/23 5:39 PM) Normal [facility] UA Auto SS eGFRon 10-02-2023 eGFR 94 mL/min/1.73 m2 Normal >=59 [facility] Comment on above: Order Comment: Order added by Discern Expert. Performed By: #### 1 [id number] #### [facility] [address] [place] [address] Gallo 07-27-2023 L Specimen: [id number] Received: 07/31/23 Status: KEREN Retd Num: [id number] Spec Type: Surgical Subm Dr: Chris Ballard Tissues: A Fallopian Tube - Sterilization (BILATERAL FT/ESSURE COILS) Procedures: HE/2, Gross/Micro L2 Age/ Patient Sex Location Account Attending Physician Monika Hdz 42/F [facility] [id number] Chris Ballard SPEC NUM: [id number] RECD: 07/31/23 STATUS: KEREN BONILLA NUM: [id number] DWAYNE: 07/27/[address]: Chris Ballard ENTERED: 07/31/[address] [facility] [facility] [address]: Antony,Lab SPEC TYPE: Surgical DEPT: [...] intact luminal center lined by paez mucosa. Video Arcade Manager sections are submitted in A1 (tube 1) and A2 (tube #2). -------- Specimen: [id number] Received: 07/31/23 Status: KEREN Chad Num: [id number] Spec Type: Surgical Subm Dr: Chris Ballard Tissues: A Fallopian Tube - Sterilization (BILATERAL FT/ESSURE COILS) Procedures: HE/2, Gross/Micro L2 -------- Patient: ArturoMonika [id number] (Continued) -------- Specimen: [id number] Received: 07/31/23 (Continued) Gross Description (Continued) Signed (signature on file) Kiara Prasad MD 08/01/23 1854 -------- Specimen: [id number] Received: 07/31/23 Status: KEREN Chad Num: [id number] Spec Type: Surgical Subm Dr: Chris Ballard Tissues: A Fallopian Tube - Sterilization (BILATERAL FT/ESSURE COILS) Procedures: HE/2, Gross/Micro L2 -------- Patient: Monika Hdz [id number] (Continued) -------- Specimen: [id number] Received: 07/31/23 (Continued) Gross Description (Continued) TW CPT Codes 09516, 72750 -------- -------- Specimen: [id number] Received: 07/31/23 Status: KEREN Bonilla Num: [id number] Spec Type: Surgical Subm Dr: Chris Ballard Tissues: A Fallopian Tube - Sterilization (BILATERAL FT/ESSURE COILS) Procedures: JOE/Shayy, Gross/Micro L2 -------- Patient: Monika Hdz [id number] (Continued) -------- Signed (signature on file) Kiara Prasad MD 08/01/231853 Normal [facility] Gallo 07-17-2023 L Specimen: [id number] Received: 07/18/23 Status: KEREN Bonilla Num: [id number] Spec Type: Surgical Subm Dr: Chris Ballard Tissues: A Endometrium - Biopsy (EMBX) Procedures: HE/2, Gross/Micro L4 Age/ Patient Sex Location Account Attending Physician Monika Hdz 42/F [facility] [id number] Chris Ballard SPEC NUM: [id number] RECD: 07/18/23 STATUS: KEREN DIETRICHTd NUM: [id number] DWAYNE: 07/17/23 DR: Chris Ballard ENTERED: 07/18/23-[address] [facility] [facility] [address]: Antony,Lab SPEC TYPE: Surgical DEPT: [...] history: Menorrhagia with irregular cycles CPT Codes 55448 -------- -------- Specimen: [id number] Received: 07/18/23 Status: KEREN Bonilla Num: [id number] Spec Type: Surgical Subm Dr: Chris Ballard Tissues: A Endometrium - Biopsy (EMBX) Procedures: HE/2, Gross/Micro L4 -------- Patient: Monika Hdz [id number] (Continued) -------- Signed (signature on file) Criss Shirley MD 07/19/23 1419 Normal [facility] Provider Letteron 04-27-2023 Provider Letter April 27, 2023 MONIKA HDZ [address] [place] [address] : 1980 Dear Monika, We have been [...] your prompt attention to this matter. Sincerely, [facility] [phone] Normal [facility] Physician Referralon 024 Physician Referral [id number] Normal [facility] Basic Metabolic Profon 03-16 Anion gap [Moles/Vol] 7 mmol/L Low 9-17 [facility] Comment on above: Performed By: #### B MP, CDP, HCG #### [facility] [address] [place] [address] Managing Manager: Wilder Galaviz MD BUN/CRE Ratio 35 High 9-20 [facility] Comment on above: Performed By: #### B MP, CDP, HCG #### [facility] [address] [place] [address] Managing Manager: Wilder Galaviz MD Calcium [Mass/Vol] 9.3 mg/dL Normal 8.6-10.4 [facility] Comment on above: Performed By: #### B DASH CDP, HCG #### [facility] [address] [place] [address] Managing Manager: Wilder Galaviz MD Chloride [Moles/Vol] 101 mmol/L Normal 98-107 [facility] Comment on above: Performed By: #### B MP, CDP, HCG #### [facility] [address] [place], [place] [phone] Managing Manager: Wilder Galaviz MD CO2 [Moles/Vol] 26 mmol/L Normal 20-31 [facility] Comment on above: Performed By: #### B DASH CDP, HCG #### [facility] [address] [place], [place] [phone] Managing Manager: Wilder Galaviz MD Creatinine [Mass/Vol] 0.4 mg/dL Low 0.5-0.9 [facility] Comment on above: Performed By: #### B KAYODE BOWLING, HCG #### [facility] [address] [place], [place] [phone] Managing Manager: Wilder Galaviz MD GFR/1.73 sq M.predicted among non-blacks MDRD (S/P/Bld) [Vol rate/Area] mL/min/{1.73_m2} Normal >60 [facility] Comment on above: Result Comment: These [...] By: #### B MP, CDP, HCG #### [facility] [address] [place] [address] Managing Manager: Wilder Galaviz MD Glucose [Mass/Vol] 99 mg/dL Normal 70-99 [facility] Comment on above: Performed By: #### B MP, CDP, HCG #### [facility] [address] [place] [phone] Managing Manager: Wilder Galaviz MD Potassium [Moles/Vol] 3.7 mmol/L Normal 3.7-5.3 [facility] Comment on above: Performed By: #### B MP, CDP, HCG #### [facility] [address] [place] [phone] Managing Manager: Wilder Galaviz MD Sodium [Moles/Vol] 134 mmol/L Low 135-144 [facility] Comment on above: Performed By: #### B MP, CDP, HCG #### [facility] [address] [place], [place] [phone] Managing Manager: Wilder Galaviz MD Urea nitrogen [Mass/Vol] 14 mg/dL Normal 6-20 [facility] Comment on above: Performed By: #### B DASH CDP, HCG #### [facility] [address] [place] [address] [place] [place], [place] [phone] Managing Manager: Wilder Galaviz MD CBC with Diffon 03-16-2023 Abs. Basophil 0.06 k/uL Normal 0.00-0.20 [facility] Comment on above: Performed By: #### B MP, CDP, HCG #### [facility] [address] [place] [address] Managing Manager: Wilder Galaviz MD Abs.Imm.Granulocyte <0.03 Normal 0.00-0.30 [facility] Comment on above: Performed By: #### B MP, CDP, HCG #### [facility] [address] [place], [place] [phone] Managing Manager: Wilder Galaviz MD Abs.Neutrophil (Seg) 3.62 k/uL Normal 1.50-8.10 [facility] Comment on above: Performed By: #### B MP, CDP, HCG #### [address] [place] [address] Managing Manager: Wilder Galaviz MD Basophils/100 WBC (Bld) 1 % Normal 0-2 [facility] Comment on above: Performed By: #### B MP, CDP, HCG #### [address] [place], [place] [phone] Managing Manager: Wilder Galaviz MD Eosinophils (Bld) [#/Vol] 0.17 10*3/uL Normal 0.00-0.44 [facility] Comment on above: Performed By: #### B MP, CDP, HCG #### [address] [place] [address] Managing Manager: Wilder Galaviz MD Eosinophils/100 WBC (Bld) 3 % Normal 1-4 [facility] Comment on above: Performed By: #### B MP, CDP, HCG #### [address] [place] [address] Managing Manager: Wilder Galaviz MD Erythrocyte distribution width (RBC) [Ratio] 12.2 % Normal 11.8-14.4 [facility] Comment on above: Performed By: #### B MP, CDP, HCG #### [address] [place], [facility]83 Managing Manager: Wilder Galaviz MD Hematocrit (Bld) [Volume fraction] 41.3 % Normal 36.3-47.1 [facility] Comment on above: Performed By: #### B MP, CDP, HCG #### [address] [place] [address] Managing Manager: Wilder Galaviz MD Hemoglobin (Bld) [Mass/Vol] 13.6 g/dL Normal 11.9-15.1 [facility] Comment on above: Performed By: #### B MP, CDP, HCG #### [facility] [address] [place] [address] Managing Manager: Wilder Galaviz MD Immature granulocytes/100 WBC (Bld) 0 % Normal 0 [facility] Comment on above: Performed By: #### B MP, CDP, HCG #### [facility] [address] [place], [facility]83 Managing Manager: Wilder Galaviz MD Lymphocytes (Bld) [#/Vol] 1.78 10*3/uL Normal 1.10-3.70 [facility] Comment on above: Performed By: #### B MP, CDP, HCG #### [facility] [address] [place] [address] Managing Manager: Wilder Galaviz MD Lymphocytes/100 WBC (Bld) 28 % Normal 24-43 [facility] Comment on above: Performed By: #### B MP, CDP, HCG #### [address] [place], [place] 0892383 Managing Manager: Wilder Galaviz MD MCH (RBC) [Entitic mass] 30.8 pg Normal 25.2-33.5 [facility] Comment on above: Performed By: #### B MP, CDP, HCG #### [address] [place], [facility]83 Managing Manager: Wilder Galaviz MD MCHC (RBC) [Mass/Vol] 32.9 g/dL Normal 28.4-34.8 [facility] Comment on above: Performed By: #### B MP, CDP, HCG #### [facility] [address] [place], [place] [phone] Managing Manager: Wilder Galaviz MD MCV (RBC) [Entitic vol] 93.4 fL Normal 82.6-102.9 [facility] Comment on above: Performed By: #### B MP, CDP, HCG #### [facility] [address] [place], [place] [phone] Managing Manager: Wilder Galaviz MD Monocytes (Bld) [#/Vol] 0.75 10*3/uL Normal 0.10-1.20 [facility] Comment on above: Performed By: #### B MP, CDP, HCG #### [facility] [address] [place], [place] 6744083 Managing Manager: Wilder Galaviz MD Monocytes/100 WBC (Bld) 12 % Normal 3-12 [facility] Comment on above: Performed By: #### B MP, CDP, HCG #### [address] [place] [address] Managing Manager: Wilder Galaviz MD Neutrophil (Seg) 56 % Normal 36-65 [facility] Comment on above: Performed By: #### B DASH CDP, HCG #### [address] [place], [place] [phone] Managing Manager: Wilder Galaviz MD NRBC Automated 0.0 per 100 WBC Normal 0.0 [facility] Comment on above: Performed By: #### B MP, CDP, HCG #### [address] [place], [place] [phone] Managing Manager: Wilder Galaviz MD Platelet mean volume (Bld) [Entitic vol] 9.7 fL Normal 8.1-13.5 [facility] Comment on above: Performed By: #### B MP, CDP, HCG #### [address] [place], [place] [phone] Managing Manager: Wilder Galaviz MD Platelets (Bld) [#/Vol] 372 10*3/uL Normal 138-453 [facility] Comment on above: Performed By: #### B MP, CDP, HCG #### [address] [place], [place] 0675283 Managing Manager: Wilder Galaviz MD RBC (Bld) [#/Vol] 4.42 10*6/uL Normal 3.95-5.11 [facility] Comment on above: Performed By: #### B MP, CDP, HCG #### [facility] [address] [place], [place] [phone] Managing Manager: Wilder Galaviz MD WBC (Bld) [#/Vol] 6.4 10*3/uL Normal 3.5-11.3 [facility] Comment on above: Performed By: #### B MP, CDP, HCG #### [facility] [address] [place], [place] [phone] Managing Manager: Wilder Galaviz MD CT ABDOMEN PELVIS W [...] explain the patient's symptoms. Interpreted by: Kendall Rosuseau MD Signed by: Kendall Rousseau MD 03/16/23 Final result Normal [facility] HCG Screen, Bloodon 03-16-19 HCG Screen, Blood Negative Normal NEG [facility] Comment on above: Result Comment: Spec imens with hCG levels near the threshold of the test (25 mIU/mL) may give a negative or indeterminate result. In such cases, another test should be performed with a new specimen in 48-72 hours. If early is suspected clinically in this setting, correlation with quantitative serum b-hCG level is suggested. [facility] has confirmed the use of plasma for this test. This has not been cleared or approved by the U.S. Food and Drug Administration. The FDA has determined that such clearance is not necessary. Performed By: #### B MP, CDP, HCG #### [facility] [address] [place] [address] Managing Manager: Wildre Galaviz MD XR FOOT RIGHT (MIN 3 VIEWS)o n 09-03-2021 No acute osseous or soft tissue abnormality. [facility] EXAMINATION: THREE XRAY VIEWS OF THE RIGHT FOOT 09/03/2021 11:36 am COMPARISON: None. HISTORY: ORDERING SYSTEM PROVIDED HISTORY: Pain FINDINGS: There is no acute osseous abnormality. The joint spaces are maintained. The surrounding soft tissues are unremarkable. [facility] Milton Garcia MD - 09/03/2021 EXAMINATION: THREE XRAY VIEWS OF THE RIGHT FOOT 09/03/2021 11:36 am COMPARISON: None. HISTORY: ORDERING SYSTEM PROVIDED HISTORY: Pain FINDINGS: There is no acute osseous abnormality. The joint spaces are maintained. The surrounding soft tissues are unremarkable. IMPRESSION: No acute osseous or soft tissue abnormality. [facility] [employer] Phone: Radiology Study observation (narrative) [facility] Work Phone: XR FOOT RIGHT (MIN 3 VIEWS)O rdered By: Milton Garcia on 09-03-2021 FERCHO Wamba Work Phone: COVID Quick Testingon 2020 Result Negative [employer] Other POCT urine pregnancyon 03-31 Beta HCG ( test) Ql (U) Negative NEGATIVE [place], [place] Comment on above: Specimens with hCG l evels near the threshold of the test (25 mIU/mL) may give a negative or indeterminate result. In such cases, another test should be performed with a new specimen in 48-72 hours. If early is suspected clinically in this setting, correlation with quantitative serum b-hCG level is suggested. TESTING PERFORMED AT [address] [address] Surgical Pathologyon 021 Surgical Pathology (NOTE) -- [...] 2: LEFT BREAST Gross Description 1. MONIKA HDZ, RIGHT BREAST Fragments of fibrofatty tissue and unremarkable paez skin, 552 grams and 17.0 x 16.0 x 5.0 cm in aggregate. Sectioning reveals no masses. [employer] sections 2cs. 2. STEFANIA HDZ, LEFT BREAST Fragments of fibrofatty tissue and unremarkable paez skin, 1109 grams and 20.0 x 18.0 x 7.0 cm in aggregate. Sectioning reveals no masses. [employer] sections 2cs. tm Microscopic Description 1, 2. Microscopic examination performed. SURGICAL PATHOLOGY CONSULTATION Patient Name: MONIKA HDZ [facility] Rec: [id number] Path Number: [id number] [facility] ANATOMIC PATHOLOGY [address] [place] [id number] [facility] Comment on above: Performed By: #### P PPVS #### [address] [id number] Managing Manager: Brown Tatum MD [id number] 03-28-2020 SARS-CoV-2 Normal [facility] Comment on above: Performed By: #### C OVID #### [address] [id number] Managing Manager: Brown Tatum MD SARS-CoV-2 Not Detected [facility] Comment on above: Result Comment: The specimen is NEGATIVE for SARS-CoV-2, the novel coronavirus associated with COVID-19. A negative result does not rule out COVID-19. Padmini SARS-CoV-2 for use on the Padmini [employer]88[employer] is a real-time RT-PCR test intended [...] this assay. Fact sheet for Healthcare Providers: https://www.fda.gov/media/208144/download Fact sheet for Patients: https://www.fda.gov/media/438524/download METHODOLOGY: RT-PCR Performed By: #### C OVID #### [address] [id number] Managing Manager: Brown Tatum MD SARS-CoV-2,Rapid [facility] Comment on above: Performed By: #### C OVID #### [address] [place] [address] Managing Manager: Brown Tatum MD [id number] 03-27-2020 SARS-CoV-2 Source .NASOPHARYNGEAL SWAB Normal [facility] Comment on above: Performed By: #### C OVID #### [address] [address] Managing Manager: Brown Tatum MD UA RANDOMon 03-22-2020 Bilirubin [Mass/Vol] Negative Normal NEGATIVE [facility] Comment on above: Performed By: #### U A #### [facility] [address] [place] [address] Liz Sylwia BLOOD LARGE Abnormal NEGATIVE [facility] Comment on above: Performed By: #### U A #### [facility] [address] [place] [address] Liz Sylwia Clarity (U) CLEAR Normal CLEAR [facility] Comment on above: Performed By: #### U A #### [facility] [address] [place] [address] Liz Sylwia Color (U) LT. YELLOW Normal YELLOW [facility] Comment on above: Performed By: #### U A #### [facility] [address] [place] [address] Liz Sylwia Glucose [Mass/Vol] Negative Normal NEGATIVE [facility] Comment on above: Performed By: #### U A #### [facility] [address] [place] [address] Liz Sylwia Ketones Ql (U) Negative Normal NEGATIVE [facility] Comment on above: Performed By: #### U A #### [facility] [address] [place] [address] Liz Sylwia Nitrite Ql (U) Negative Normal NEGATIVE [facility] Comment on above: Performed By: #### U A #### [facility] [address] [place] [address] Liz Sylwia pH (Bld) 6.0 Normal 5-9 [facility] Comment on above: Performed By: #### U A #### [facility] [address] [place], [place] [address] Liz Dao SPEC GRAVITY 1.020 Normal 1.005-<=1.02 5 [facility] Comment on above: Performed By: #### U A #### [facility] [address] [place], [place] [address] Liz Dao UA PROTEIN Negative Normal NEGATIVE/ TRACE [facility] Comment on above: Performed By: #### U A #### [facility] [address] [place], [place] [address] Liz Dao Urobilinogen Qn (U) 0.2 EU/dl Normal 0.2 - 1.0 [facility] Comment on above: Performed By: #### U A #### [facility] [address] [place], [place] [address] Liz Dao WBC (Bld) [#/Vol] Negative Normal NEGATIVE [facility] Comment on above: Performed By: #### U A #### [facility] [address] [place], [place] [address] Liz Dao Vital Signs Date Time Vital Sign Value Performing Clinician Facility 12-11-2023 14:08-0400 Body height 165.1 cm kaufDA Work Phone: [facility] 12-11-2023 14:08-0400 Body mass index (BMI) [Ratio] 26.46 kg/m2 [employer] Work Phone: [facility] 12-11-2023 14:08040 Body weight 72.12 kg kaufDA Work Phone: [facility] 12-11-2023 14:08-0400 Diastolic blood pressure 64 mm[Hg] [employer]DA Work Phone: [facility] 12-11-2023 14:08-0400 Systolic blood pressure 110 mm[Hg] [employer]DA Work Phone: [facility] 10-02-2023 22:51-0400 Diastolic blood pressure 71 mm[Hg] Siena Worthington [facility] 10-02-2023 22:51-0400 Heart rate 67 /min [facility] 10-02-2023 22:51-0400 Mean blood pressure 82 mm[Hg] [facility] 10-02-2023 22:51-0400 Respiratory rate 15 /min [facility] 10-02-2023 22:51-0400 SaO2% (BldA) [Mass fraction] 99 % [facility] 10-02-2023 22:51-0400 Systolic blood pressure 105 mm[Hg] [facility] 10-02-2023 22:00-0400 Diastolic blood pressure 77 mm[Hg] [facility] 10-02-2023 22:00-0400 Heart rate 75 /min [facility] 10-02-2023 22:00-0400 Mean blood pressure 88 mm[Hg] [facility] 10-02-2023 22:00-0400 Respiratory rate 16 /min [facility] 10-02-2023 22:00-0400 SaO2% (BldA) [Mass fraction] 97 % [facility] 10-02-2023 22:00-0400 Systolic blood pressure 109 mm[Hg] [facility] 10-02-2023 21:00-0400 Diastolic blood pressure 84 mm[Hg] [facility] 10-02-2023 21:00-0400 Heart rate 71 /min [facility] 10-02-2023 21:00-0400 Mean blood pressure 94 mm[Hg] [facility] 10-02-2023 21:00-0400 SaO2% (BldA) [Mass fraction] 100 % [facility] 10-02-2023 21:00-0400 Systolic blood pressure 115 mm[Hg] [facility] 10-02-2023 17:31-0400 Body temperature 97.88 [degF] [facility] 10-02-2023 17:31-0400 Heart rate 90 /min [facility] 12-22-2020 12:15-0400 Body height 165.1 cm Latoya Beck Other [employer] Other 12-22-2020 12:15-0400 Body mass index (BMI) [Ratio] 26.62 kg/m2 Latoya Beck Other [employer] Other 12-22-2020 12:15-040 Body temperature 100.5 [degF] Latoya Beck Other [employer] Other 12-22-2020 12:15-0400 Body weight 72.58 kg Latoya Beck Other [employer] Other 12-22-2020 12:15-0400 Respiratory rate 18 /min Latoya Beck Other [employer] Other 12-22-2020 12:15-0400 SaO2% (BldA) [Mass fraction] 98 % Latoya Beck Other [employer] Other 03-31-2020 12:15-0500 BP Diastolic 94 mm[Hg] Dylan [employer] [facility] , [place] 03-31-2020 12:15-0500 BP Systolic 127 mm[Hg] Dylan [employer] [facility] [place] 03-31-2020 12:15-0500 Pulse (Heart Rate) 80 /min Dylan [employer] [facility] [place] 03-31-2020 12:15-0500 Pulse Oximetry 93 % Dylan Edmond [employer] [facility] [place] 03-31-2020 11:17-0500 Body Temperature 97.81 [degF] Dylan Edmond [facility] , [place] 03-31-2020 06:24-0500 Respiratory Rate 19 /min [facility], [place] 03-31-2020 06:10-0500 BMI (Body Mass Index) 29.95 kg/m2 Dylan Alvarenga [facility], [place] 03-31-2020 06:10-0500 Body weight 81.65 kg Dylan Pruitt [place], [place] 03-31-2020 06:10-0500 Height 165.1 cm Dylan Pruitt [facility] , [place] Encounters Encounter Date Encounter Type Care Provider Facility Start: 12-11-2023 End: 12-11-2023 Bamboo flowsheet Chris Elio DO Work Phone: [facility] Start: 12-11-2023 End: 12-11-2023 Bamboo flowsheet Chris Elio DO Work Phone: [facility] Start: 12-11-2023 End: 12-11-2023 Office outpatient visit 15 minutes Chris Elio DO Work Phone: [facility] Comment on above: Pre-op examination; Menorrhagia with regular cycle; Pelvic pain in female; Dyspareunia in female; Dysmenorrhea Start: 12-11-2023 End: 12-11-2023 Preprocedural examination done Chris Elio DO Work Phone: [facility] Start: 12-11-2023 End: 12-11-2023 ambulatory CHRIS ELIO Not Available Start: 11-15-2023 End: 11-15-2023 ambulatory VIVIANA NITESH Not Available Start: 10-08-2023 End: 10-08-2023 ambulatory VIVIANA NITESH Not Available Start: 10-02-2023 End: 10-02-2023 Emergency department patient visit Siena Worthington [facility] Start: 07-27-2023 End: 07-27-2023 ambulatory Chris Elio Facility:[facility] Start: 07-27-2023 End: 07-27-2023 ambulatory PHYSICIAN NO [facility] Work Phone: Start: 07-27-2023 End: 07-27-2023 Departed Referred PHYSICIAN NO [facility] Start: 07-17-2023 End: 07-17-2023 ambulatory Chris Elio Facility:[facility] Start: 07-17-2023 End: 07-17-2023 ambulatory PHYSICIAN NO [facility] Work Phone: Start: 07-17-2023 End: 07-17-2023 Departed Referred PHYSICIAN NO [facility] Start: 05-23-2023 End: 05-23-2023 ambulatory CHRIS ELIO Not Available Start: 03-20-2023 ambulatory Astrit Bahmanari Facility :[facility] Start: 03-16-2023 End: 03-16-2023 Emergency department patient visit LULA [facility] Start: 04-22-2022 End: 05-10-2022 ambulatory Facility:[id number] Start: 03-29-2022 End: 04-12-2022 ambulatory Facility:[id number] Start: 09-03-2021 End: 09-05-2021 Subsequent hospital visit by physician Jack Zaldivar [facility] Comment on above: Pain Start: 12-22-2020 (URG) Urgent Care Visit Latoya trujillo [facility] Start: 07-01-2020 Patient encounter procedure WILDER ORTIZ Facility: Start: 03-31-2020 End: 03-31-2020 Patient encounter procedure DYLAN PRUITT [facility] Start: 03-31-2020 End: 03-31-2020 Subsequent hospital visit by physician Dylan Pruitt Work Phone: [facility] [place] Comment on above: Acute post-operative pain (Primary Dx) Start: 03-27-2020 End: 03-28-2020 Patient encounter procedure SHIRLEY KING [facility] Start: 03-27-2020 End: 03-27-2020 Subsequent hospital visit by physician [facility] Covid Screening Schedule [facility] Covid Screening Comment on above: Preop testing (Prima ry Dx) Start: 03-26-2020 Encounter for other preprocedural examination [facility] Start: 03-22-2020 End: 03-23-2020 Patient encounter procedure [facility] Facility:H1 Encounter for other preprocedural examination [facility] Procedures Date Procedure Procedure Detail Performing Clinician Start: 09-03-2021 Radex foot complete minimum 3 views Nadeen Rodriguez [employer] Work Phone: Start: 03-31-2020 Urine test visual color cmprsn meths Dylan Pruitt Work Phone: Plan of Treatment Date Care Activity Detail Author Start: 01-02-2024 End: 01-02-2024 Patient encounter procedure 01/02/2024 6:00 AM EDT Procedure Visit [facility] Chris Ballard, DO [address] [place], [place] [id number] [facility] Start: 12-11-2023 End: 12-11-2023 Patient encounter procedure 12/11/2023 2:00 PM EDT Consult [facility] [address] [place] [id number] Chris Ballard, DO [address] [place] [address] Arrived [facility] Comment on above: Arrived Start: 11-10-2021 Influenza vaccination Flu vacc ine (Season Ended) [facility] Start: 04-05-2020 End: 04-05-2020 Office Visit 04/05/2020 Office Visit Plastic Surgery Dylan Pruitt MD [address] [place] [address] [facility] Start: 03-31-2020 End: 03-31-2020 Hospital Encounter [facility] [place] Comment on above: BREAST MAMMOPLASTY R EDUCTION Start: 03-27-2020 End: 03-26-2021 COVID-19 [place], [place] Comment on above: Expected: 03/27/2020 , Expires: 03/26/2021 Once for 1 Occurrenc es starting 03/27/2020 until 03/27/2020 Start: 11-11-2019 Influenza vaccination Flu vaccine (# 1) [place], [place] Start: 09-20-2011 Screening for malign ant neoplasm of cervix [facility] Start: 2002 Screening for malign ant neoplasm of cervix [facility] Start: 2000 DTaP/Tdap/Td vaccine (1 - Tdap) DTaP/Tdap/Td vaccine (1 - Tdap) [facility] Start: 09-20-1999 Hepatitis C screening Hepatitis C [facility] Start: 1996 HIV screening HIV screen [facility] Start: 1993 Depression Screen Depression Screen [facility] Start: 1986 COVID-19 Vaccine (1) COVID-19 Vaccin e (1) [facility] Start: 1982 Varicella vaccine (1 of 2 - 2-dose childhood series) Varicella vaccine (1 of 2 - 2-dose childhood series) [facility] Start: 1981 Hepatitis C screening Hepatitis C [place], [place] End: 03-31-2020 Blood glucose - POCT Blood glucose - POCT Point of Care Testing Routine One Time for 1 Occurrences starting 03/31/2020 until 03/31/2020 [place], [place] Comment on above: One Time for 1 Occur rences starting 03/31/2020 until 03/31/2020 COVID-19 COVID-19 Lab Rou david 03/27/2020 1:13 PM EST [place], [place] Oxygen therapy [[facility] Data Set] Initiate Oxygen Therapy Protocol Respiratory Care Routine Daily until discontinued starting 03/31/2020 [place] Comment on above: Daily until disconti nued starting 03/31/2020 Phase I & II - meter ed glucose Phase I & II - metered glucose Point of Care Testing Routine As Needed until discontinued starting 03/31/2020 [place] Comment on above: As Needed until disc ontinued starting 03/31/2020 End: 03-31-2020 , urine POCT , urine POCT Point of Care Testing Routine One Time for 1 Occurrences starting 03/31/2020 until 03/31/2020 [place] Comment on above: One Time for 1 Occur rences starting 03/31/2020 until 03/31/2020 Surgical Pathology Surgical Path ology Lab Routine Release Upon Ordering for 1 Occurrences starting 03/31/2020 [place] Comment on above: Release Upon Orderin g for 1 Occurrences starting 03/31/2020 Payers Date Payer Category Payer Private Health Insurance [id number] 2011 Unknown [employer] [id number] 2011-Present [address] [place] [address] [id number] 1981 Unknown [id number] [id number] .2.176 1981 Unknown [id number] 2.16.840.1.414687.3.579 .2.175 1981 Unknown [id number] 2.16.840.1.465942.3.579 .2.593 1981 Unknown [id number] 2.16.840.1.278118.3.579 .2.593 1981 Unknown [id number] 2.16.840.1.997908.3.579 .2.173 1981 Unknown [id number] 2.16.840.1.527245.3.579 .2.727 1981 Unknown [id number] 2.16.840.1.413194.3.579 .2.727 1981 Unknown [id number] 2.16.840.1.107901.3.579 .2.1259 1981 Unknown [id number] 2.16.840.1.566656.3.579 .2.1259 1981 Unknown [id number] 2.16.840.1.470505.3.579 .2.1259 1981 Unknown [id number] 2.16.840.1.798918.3.579 .2.1259 1981 Unknown [id number] 2.16.840.1.145074.3.579 .2.1259 1959 Private Health Insurance [id number] .[id number] 1959 Self-pay Unknown [id number] 2.16.840.1.026570.3.579 .2.531 Unknown [id number] 2.16.840.1.069063.3.579 .2.531 Social History Date Type Detail Facility Start: 03-22-2020 End: 03-31-2020 Tobacco smoking status NHIS Former sm[place] Start: 07-18-2023 End: 12-30-2019 History of tobacco use Current [place] End: 12-30-2019 History of tobacco use Cigarette [place] Start: 03-22-2020 End: 03-31-2020 Cigarettes smoked current (pack per day) - Reported [place] Start: 03-22-2020 End: 03-31-2020 Tobacco use and exposure Never used [place] Start: 03-31-2020 End: 05-05-2020 Alcohol intake Current drinker of alcohol (finding) [place] Start: 11-25-2019 History SDOH Alcohol Frequency 3 [place] Start: 03-31-2020 Alcohol Comment social [place], [place] Start: 1980 Sex Assigned At Not on file M [place], [place] Exposure to SARS-CoV -2 (event) Not sure [place] Sex Assigned At [facility] Start: 03-31-2020 History SDOH Alcohol Comment social [employer] Phone: Start: 1980 Sex Assigned At Female F [facility] Tobacco smoking status No Smokin g Status Entered [facility] Tobacco smoking stat NHIS Tobacco smoking consumption unknown [facility] Functional Status Date Assessment Result Facility 10-02-2023 Functional Status N/A [facility] Clinical Notes 12-22-2020 to 12-11-2023 Harper Mackay - 12/11/2023 2:00 PM EDT Note Date & Type Note Facility 12-11-2023 History of Present illness Narrative Reason for Appointment: Patient ID: Monika Hdz is a 43 y.o. female who presents for Pre-op Visit Patient presents today for Pre Op appointment. Patient is scheduled to undergo Da Ganesh assisted Laparoscopic Hysterectomy, possible exploratory laparotomy, possible BSO, possible cystoscopy on 01/02/[address] Ballard at [facility]. MEDICATIONS Current Outpatient Medications Medication Instructions cetirizine (ZyrTEC) 10 MG tablet Every 24 hours cyanocobalamin (Vitamin B-12) 1000 MCG/ML injection 1 mL Injection [id number] for 30 days dicyclomine (Bentyl) 20 MG tablet TAKE 1 TABLET BY MOUTH THREE TIMES A DAY BEFORE MEALS for 30 famotidine (Pepcid) 20 MG tablet 1 tablet, Oral, 2 times daily gabapentin (Neurontin) 300 MG capsule 1 capsule, Every 12 hours ibuprofen 800 mg, Oral, Every 8 hours spironolactone (Aldactone) 100 MG tablet Every 24 hours Strattera 80 MG capsule Every 24 hours Syringe, Disposable, 3 ML misc as directed q2 weeks for 30 days Topiramate ER (Trokendi XR) 200 MG capsule sustained-release 24 hr 1 capsule, Every 24 hours ALLERGIES Allergies Allergen Reactions Penicillins Hives Other Reaction(s): Other (See Comments) Family members severely allergic; pt does not take it Propoxyphene Nausea And Vomiting Other Reaction(s): Vomiting DARVOCET Other Unknown Oxycodone-Acetaminophen Other Reaction(s): sick Penicillin G Unknown Penicillin G Benzathine Hives Other Reaction(s): swelled Cephalexin Hives, Itching, Rash, Swelling and Unknown Other Reaction(s): swelled Codeine Nausea And Vomiting and Unknown Other Reaction(s): Vomiting Other Reaction(s): emesis Other Reaction(s): vomiting PROBLEMS Active Ambulatory Problems Diagnosis Date Noted No Active Ambulatory Problems Resolved Ambulatory Problems Diagnosis Date Noted No Resolved Ambulatory Problems No Additional Past Medical History HISTORY PAST MEDICAL HISTORY SOCIAL HISTORY No past medical history on file. Social History Tobacco Use Smoking status: Not on file Smokeless tobacco: Not on file Substance Use Topics Alcohol use: Not on file Drug use: Not on file FAMILY HISTORY No family history on file. SURGICAL HISTORY Past Surgical History: Procedure Laterality Date ENDOMETRIAL ABLATION 07/27/2023 HYSTEROSCOPY 07/27/2023 SALPINGECTOMY Bilateral 07/27/2023 removal of essure coils REVIEW OF SYSTEMS Review of Systems: Review of Systems Constitutional: Negative. HENT: Negative. Eyes: Negative. Respiratory: Negative. Cardiovascular: Negative. Gastrointestinal: Negative. Genitourinary: Positive for dyspareunia, menstrual problem and pelvic pain. Musculoskeletal: Negative. Skin: Negative. Neurological: Negative. All other systems reviewed and are negative. Hematological: Negative. Endocrine: Negative. Allergic/Immunologic: Negative. OBJECTIVE Objective: Physical Exam Constitutional: Appearance: Normal appearance. She is well-developed. Cardiovascular: Rate and Rhythm: Normal rate and regular rhythm. Pulmonary: Effort: Pulmonary effort is normal. Breath sounds: Normal breath sounds. Abdominal: General: Bowel sounds are normal. There is no distension. Palpations: Abdomen is soft. Tenderness: There is no abdominal tenderness. There is no guarding or rebound. Musculoskeletal: General: No swelling. Normal range of motion. Right lower leg: No edema. Left lower leg: No edema. Neurological: Mental Status: She is alert and oriented to person, place, and time. Skin: General: Skin is warm and dry. Psychiatric: Mood and Affect: Mood normal. Behavior: Behavior normal. Vitals and nursing note reviewed. Exam conducted with a operating engineer present. Vitals: There is no height or weight on file to calculate BMI. BP: No LMP recorded. ASSESSMENT & PLAN ICD-10-CM 1. Pre-op examination Z01.818 2. Menorrhagia with regular cycle N92.0 3. Pelvic pain in female R10.2 4. Dyspareunia in female N94.10 5. Dysmenorrhea N94.6 Pre Op: Patient is doing well but has complaints of menorrhagia, pelvic pain, dyspareunia, dysmenorrhea. I have discussed conservative management vs. surgical management with the patient in detail and patient desires surgical management at this time. Patient will undergo Da Ganesh assisted Laparoscopic Hysterectomy, possible exploratory laparotomy, possible BSO, possible cystoscopy on 01/02/24. Surgical consents were signed, mmc was reviewed, and patient is to proceed to [facility] OR. Follow Up: Patient is to follow up at 1 & 6 weeks post operative to assess proper healing and recovery from procedure. Documented by Sylwia Sanchez LPN on behalf of: Chris Ballard DO documented in this encounter [facility] 10-03-2023 Hospital Discharge instructions Patient Education 10/02/2023 22:45:50 Abdominal Pain, Adult, Zspc-kw-Eowg Abdominal Pain, Adult Many things can cause belly (abdominal) pain. Most times, belly pain is not dangerous. Many cases of belly pain can be watched and treated at home. Sometimes, though, belly pain is serious. Your doctor will try to find the cause of your belly pain. Follow these instructions at home: Medicines Take ocqd-krn-mdtkwdt and prescription medicines only as told by your doctor. Do not take medicines that help you poop (laxatives) unless told by your doctor. General instructions Watch your belly pain for any changes. Drink enough fluid to keep your pee (urine) pale yellow. Keep all follow-up visits as told by your doctor. This is important. Contact a doctor if: Your belly pain changes or gets worse. You are not hungry, or you lose weight without trying. You are having trouble pooping (constipated) or have watery poop (diarrhea) for more than 2 3 days. You have pain when you pee or poop. Your belly pain wakes you up at night. Your pain gets worse with meals, after eating, or with certain foods. You are vomiting and cannot keep anything down. You have a fever. You have blood in your pee. Get help right away if: Your pain does not go away as soon as your doctor says it should. You cannot stop vomiting. Your pain is only in areas of your belly, such as the right side or the left lower part of the belly. You have bloody or black poop, or poop that looks like tar. You have very bad pain, cramping, or bloating in your belly. You have signs of not having enough fluid or water in your body (dehydration), such as: ?Dark pee, very little pee, or no pee. ?Cracked lips. ?Dry mouth. ?Sunken eyes. ?Sleepiness. ?Weakness. You have trouble breathing or chest pain. Summary Many cases of belly pain can be watched and treated at home. Watch your belly pain for any changes. Take hkex-inq-ayvpggs and prescription medicines only as told by your doctor. Contact a doctor if your belly pain changes or gets worse. Get help right away if you have very bad pain, cramping, or bloating in your belly. This information is not intended to replace advice given to you by your health care provider. Make sure you discuss any questions you have with your health care provider. Document Revised: 07/07/2019 Document Reviewed: 07/07/2019 [employer] Patient Education 2022 [employer]. Follow Up Care 10/02/2023 16:55:29 With:Octavio Mcclain Address: [address] [place] [phone] Business (1) When:10/05/2023 21:45:28 Comments:Call to schedule a follow-up appointment with the studio operations manager if symptoms not improve in the next 2 to 3 days. Take the antibiotic in entirety. Return to the ED with any worsening symptoms. With:ALDEN MELÉNDEZ Address: [facility] [place] [address]- Business (1) When:Within 3 Day(s) [facility] 10-02-2023 Note ED Patient Education Note Gastroenterology Abdominal Pain, Adult Many things can cause belly (abdominal) pain. Most times, belly pain is not dangerous. Many cases of belly pain can be watched and treated at home. Sometimes, though, belly pain is serious. Your doctor will try to find the cause of your belly pain. Follow these instructions at home: Medicines ? Take qxgp-dle-cgykvjs and prescription medicines only as told by your doctor. ? Do not take medicines that help you poop (laxatives) unless told by your doctor. General instructions ? Watch your belly pain for any changes. ? Drink enough fluid to keep your pee (urine) pale yellow. ? Keep all follow-up visits as told by your doctor. This is important. Contact a doctor if: ? Your belly pain changes or gets worse. ? You are not hungry, or you lose weight without trying. ? You are having trouble pooping (constipated) or have watery poop (diarrhea) for more than 2?3 days. ? You have pain when you pee or poop. ? Your belly pain wakes you up at night. ? Your pain gets worse with meals, after eating, or with certain foods. ? You are vomiting and cannot keep anything down. ? You have a fever. ? You have blood in your pee. Get help right away if: ? Your pain does not go away as soon as your doctor says it should. ? You cannot stop vomiting. ? Your pain is only in areas of your belly, such as the right side or the left lower part of the belly. ? You have bloody or black poop, or poop that looks like tar. ? You have very bad pain, cramping, or bloating in your belly. ? You have signs of not having enough fluid or water in your body (dehydration), such as: ? Dark pee, very little pee, or no pee. ? Cracked lips. ? Dry mouth. ? Sunken eyes. ? Sleepiness. ? Weakness. ? You have trouble breathing or chest pain. Summary ? Many cases of belly pain can be watched and treated at home. ? Watch your belly pain for any changes. ? Take lxap-nkp-rnwezah and prescription medicines only as told by your doctor. ? Contact a doctor if your belly pain changes or gets worse. ? Get help right away if you have very bad pain, cramping, or bloating in your belly. This information is not intended to replace advice given to you by your health care provider. Make sure you discuss any questions you have with your health care provider. Document Revised: 07/07/2019 Document Reviewed: 07/07/2019 Elsevier Patient Education ? 2022 [employer]. [facility] 10-02-2023 Evaluation + Plan note Extrac concetta from: Title:ED Note Author:Deuce JO, Adina Whiting te:10/02/23 Acute UTI (urinary tract inf ection) (N39.0: Urinary tract infection, site not specified) Generalized abdominal pain (R10.84: Generalized abdominal pain) Ovarian cyst, right (N83.201: Unspecified ovarian cyst, right side) Orders: ketorolac, 15 mg = 0.5 mL, Injection, IV Push, Once, Stop date 10/02/23 19:33:00 EDT, STAT, Start date 10/02/23 19:33:00 EDT, 10/02/23 19:33:00 EDT Sodium Chloride 0.9% intravenous solution, 1,000 mL, Soln-IV, IV, Once, Stop date 10/02/23 19:34:00 EDT, STAT, Start date 10/02/23 19:34:00 EDT, Infuse over 61, minute(s) sulfamethoxazole-trimethoprim, 1 tab(s), Oral, BID for 5 day(s), 10 tab(s), Refill(s) 0, [id number], 165, cm, 10/02/23 17:37:00 EDT, Height/Length Dosing, 70.5, kg, 10/02/23 17:37:00 EDT, Weight Dosing sulfamethoxazole-trimethoprim, 1 tab(s), Tab, Oral, Once, Stop date 10/02/23 21:42:00 EDT, STAT, Start date 10/02/23 21:42:[address] Abdomen/Pelvis w/ Contrast US Pelvis Non-OB Complete Diagnostic Tests Pending * Urine Culture 10/02/23 [facility]10[facility]13[facility]2021 Evaluation note* Encounter Date Diagnosis Assessment Notes Treatment Notes Treatment Clinical Notes Dec, Contact with and (suspected) exposure [...] Patient care instructions given in writting by [facility] At Home document. Additional time spent conducting pre-visit phone call, screening for symptoms, instructions on social distancing, application and removal of PPE, and cleaning of examination room, equipment and supplies was preformed. Patient education given for testing methodology and results. Patient care instructions given in writting by [facility] Home document. [employer] Other Evaluation note* Diagnosis Pain Generalized pain documented in this encounter [facility] Work Phone: evaluation noteNo assessment information available [facility] [place] [facility] Work Phone: Evaluation note* Diagnosis Pre-op examination Menorrhagia with regular cycle Pelvic pain in female Unspecified symptom associated with female genital organs Dyspareunia in female Dysmenorrhea documented in this encounter [facility] N[facility]ative - Reported* Type Description Date Medical History chronic depression Surgical History C section Surgical History tonsillectomy Surgical History essure [employer] Other Hospital course Narrative No data available for this section [facility] data available for this section [facility] Discharge Instructions * Instructions* Terra Yates, EDNA - 03/31/2020 Breast Reduction and/or Mastopexy After [...] ad fiber intake. You may also take taca-eyh-bllukpa stool softener. We have found that 2 [...] at the surgery center (3rd entrance) on ___9-13-39 by ___599 . Please stop any blood [...] drive you home after your procedure. 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 [...] Documents on File Type Date Recorded Patient Video Arcade Manager Expl anation ACP-Advance Directive ACP-Power of Emu Farmer Documents on File Type Date Recorded Patient Video Arcade Manager Expl anation ACP-Advance Directive ACP-Power of Emu Farmer Advance Directive Response Recorded Date/ Time Advance Directives No July 18, 2023 12:27pm Summary Purpose Family History No Family History Records FoundNo Family History Records FoundNo Family History Records FoundNo Family History Records FoundNo Family History Records FoundNo Family History Records Found No data available for this section No Family History Records FoundNo Family History [...] To Contact Diagnoses Macromastia BILATERAL MACROMASTIA Procedures [place] BREAST REDUCTION BREAST MAMMOPLASTY REDUCTION Dylan Pruitt MD [facility] [place] [address] [facility] Reason Comments Pre-op Visit Ordered Prescriptions (unrec ognized section and content) [...] section and content) DATE CREATED AUTHOR 04/01/2020 [facility] DATE CREATED AUTHOR AUTHOR'S ORGANIZ ATION 04/02/2020 [facility] DATE CREATED AUTHOR AUTHOR'S ORGANIZ ATION 06/23/2020 [facility] DATE CREATED AUTHOR AUTHOR'S ORGANIZ ATION 05/11/2022 [facility] DATE CREATED AUTHOR AUTHOR'S ORGANIZ ATION 03/17/2023 [facility] DATE CREATED AUTHOR AUTHOR'S ORGANIZ ATION 08/01/2023 [facility] DATE CREATED AUTHOR AUTHOR'S ORGANIZ ATION 10/05/2023 [facility] [place] [facility] DATE CREATED AUTHOR AUTHOR'S ORGANIZ ATION 12/13/2023 [facility] EPIC Care Teams (unrecognized sec tion and content) 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 Relationship Specialty Start Date End Date Alden Meléndez MD [address] [address] [phone] PCP - General Family Medicine 03/24/20 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 Relationship Specialty Start Date End Date Alden Meléndez MD [address] [phone] PCP - General Family Medicine 03/24/20 Team Status: Active Member Role Status Dates PHYSICIAN NO FAMILY Primary Care Provider Active Team Status: Inactive Member Role Status Dates PHYSICIAN NO FAMILY Primary Care Provider Active Start: July 17, 2023 End: July 17, 2023 Chris Ballard Attending Provider Active Start: Gutierrez degroot 2023 End: July 17, 2023 Team Status: Inactive Member Role Status Dates Chris Elio Attending Provider Active Start: Gutierrez degroot 2023 [...] BE BASED ON THE PRIMARY CLINICAL RECORDS. [facility] [employer] provides no warranty or guarantee of the accuracy or completeness of information in this document.
[2024-01-01 09:41] LABS: Basophils Absolute Auto 0.1 10^3/uL (0.0-0.1); Basophils Percent Auto 0.9 % (0.2-2.0); Eosinophils Absolute Auto 0.3 10^3/uL (0.0-0.7); Eosinophils Percent Auto 3.8 % (0.9-7.0); Hematocrit 40.6 % (36.0-48.0); Hemoglobin 13.2 g/dL (12.0-16.0); Immature Granulocytes Abs Auto 0.01 10^3/uL (0.00-0.03); Immature Granulocytes Pct Auto 0.2 % (0.0-0.5); Lymphocytes Absolute Auto 1.5 10^3/uL (1.2-3.8); Lymphocytes Percent Auto 22.9 % (20.5-60.0); Mean Corpuscular HGB Conc 32.5 g/dL (29.9-35.2); Mean Corpuscular Hemoglobin 30.2 pg (26.7-34.0); Mean Corpuscular Volume 92.9 fL (81.0-99.0); Mean Platelet Volume 9.8 fL (9.5-13.5); Monocytes Absolute Auto 0.5 10^3/uL (0.3-0.8); Monocytes Percent Auto 8.1 % (1.7-12.0); Neutrophils Absolute Auto 4.2 10^3/uL (1.4-6.5); Neutrophils Percent Auto 64.1 % (43.0-75.0); Platelet Count 330 10^3/uL (150-450); Red Blood Count 4.37 10^6/uL (4.20-5.40); Red Cell Distribution Width 11.7 % (11.0-15.0); White Blood Count 6.5 10^3/uL (4.0-11.0)
[2024-01-01 09:54] LABS: Alanine Aminotransferase 15 U/L (14-59); Albumin Globulin Ratio 0.9; Albumin Level 3.3 g/dL (3.4-5.0); Alkaline Phosphatase 56 U/L (46-116); Anion Gap 12.1; Aspartate Amino Transferase 13 U/L (15-37); BUN Creatinine Ratio 17.9; Bilirubin Direct 0.1 mg/dL (0.0-0.2); Bilirubin Total 0.5 mg/dL (0.2-1.0); Carbon Dioxide 27.2 mmol/L (21.0-32.0); Chloride 105 mmol/L (98-107); Estimated GFR (African America >60 (>=60 mL/min/1.73m^2); Estimated GFR (Non-African Ame >60 (>=60 mL/min/1.73m^2); Globulin 3.7 g/dL; Glucose 102 mg/dL (74-106); Potassium 4.3 mmol/L (3.5-5.1); Sodium 140 mmol/L (136-145)
[2024-01-01 09:59] LABS: INR 1.02; Partial Thromboplastin Time 28.8 sec (22.3-36.2); Prothrombin Time 10.8 sec (9.0-11.6)
[2024-01-01 10:25] LABS: HCG Quantitative <1 mIU/mL
== END 2024-01-01 09:04 | disposition home or self-care (01) ==
PROVIDERS: Visit Provider Obstetrics & Gynecology
DX: Z01.812 Encounter for preprocedural laboratory examination (principal); N92.0 Excessive and frequent menstruation with regular cycle; R10.2 Pelvic and perineal pain; N94.6 Dysmenorrhea, unspecified; N94.10 Unspecified dyspareunia
CPT/HCPCS: 36415; 80048; 80076; 84702; 85025; 85610; 85730; 86850; 86900; 86901

== ENCOUNTER 2024-01-02 06:20 | Day surgery (SDC) | payer OTHER, SELFPAY ==
[2024-01-01 09:30] VITALS: BP 121/86; PULSE 82; TEMP 36.6; O2SAT 99; BMI 26.6
[2024-01-02] VITALS (20 sets, daily range): BP systolic 95–120; BP diastolic 56–91; PULSE 60–79; TEMP 36.4–36.8; O2SAT 95–100; BMI 26.5
--- OUTSIDE RECORDS SUMMARY | 2024-01-02 06:23 | XMS_ITS | CCD ---
Author Organization [facility] Care Team Providers Care Country Printer Apprentice Name Role Phone Alden Meléndez Primary Care Provider [phone] SHIRLEY KING Referring Unavailable ALDEN MELÉNDEZ Primary Care Unavailable DYLAN PRUITT Admitting Unavailab DYLAN Meade Attending Unavailab ALDEN Pinzon Primary Care Unavailable WILDER ORTIZ V Admitting Unavailable WILDER ORTIZ V Attending Unavailable ALDEN MELÉNDEZ Primary Care Unavailable MISC, DOCTOR Admitting Unavailable MISC, DOCTOR Consulting Unavailable MISC, DOCTOR Attending Unavailable ALDEN MELÉNDEZ Primary Care Unavailable Laotya Beck Unavailable Alden Meléndez MD Primary Care Provider LULA SHARPE Attending Unavailable ALDEN MELÉNDEZ Primary Care Unavailable NO FAMILY, PHYSICIAN Primary Care Provider Unava ilable Chris Ballard Attending Provider [phone] Chris Ballard Admitting Unavailable Chris Ballard Attending Unavailable NO FAMILY, PHYSICIAN Primary Care Unavailable Chris Ballard Attending Unavailable Chris Ballard Admitting Unavailable ALDEN MELÉNDEZ Primary Care Physician [phone] Elin, Astrit H Attending Unavailable Haeloy, Astrit H Attending Unavailable Unavailable Primary Care Provider UnavailCHRIS Avalos Attending Unavailable CHRIS BALLARD Attending Unavailable VIVIANA DOWLING Attending Unavailable VIVIANA DOWLING Attending Unavailable CHRIS BALLARD Attending Unavailable Allergies Allergy Classification Reported Allergen(s) Allergy Type Date of Onset Reaction(s) Facility (7 sources) Acetaminophen / oxyCODONE Drug Allergy 03-22-19 21 [facility], [place] (11 sources) Cephalexin; Translations: [cephalexin] Drug Allergy 10-04-19 19 Hives, Itching, Swelling, Rash, Unknown [place], [place] (12 sources) Codeine; Translations: [codeine] Drug Allergy 10-04-19 19 Nausea And Vomiting, Unknown [place], [place] (4 sources) Penicillins Propensity to adverse reactions to drug 11-25-19 Other (See Comments) [place] (7 sources) Propoxyphene Drug Allergy 10-04-19 Nausea And Vomiting [place] (2 sources) Cephalexin; Translations: [Keflex] Drug Allergy [facility] (1 source) Codeine Drug Allergy [facility] (3 sources) Penicillin; Translations: [penicillin] Drug Allergy [facility] (1 source) Darvocet-N 100 Drug allergy (disorder) [facility] (7 sources) Penicillin G Benzathine; Translations: [penicillin G benzathine] Drug allergy 12-23-19 [facility] [place] (1 source) Cephalexin Drug Allergy 12-23-19 [facility] (1 source) Codeine Drug Allergy 12-23-19 [facility] (2 sources) Acetaminophen / oxyCODONE; Translations: [acetaminophen-ox ycodone] Drug Allergy [facility] (2 sources) acetaminophen / propoxyphene; Translations: [acetaminophen-pr opoxyphene] Drug Allergy [facility] (3 sources) Penicillin G Drug Allergy 11-15-19 Unknown [facility] (3 sources) Penicillins Drug Intolerance 10-04-19 [facility] (3 sources) Other Allergy to substance 11-15-19 Unknown [facility] Medications Current Medications Medication Drug Class(es) [...] 11/03/2019 Active atomoxetine 80 mg oral capsule (3 sources) Norepinephrine Reuptake Inhibitor Strattera 80 MG [...] infusion cetirizine hydrochloride 10 mg oral tablet (3 sources) Histamine-1 Receptor Antagonist Start: 09-11-2023 cetirizine [...] 25 mcg gabapentin 300 mg oral capsule (3 sources) Anti-epileptic Agent Start: 09-26-2023 take 1 [...] 0.5 mg ibuprofen 800 mg oral tablet (7 sources) Nonsteroidal Anti-inflammatory Drug Start: 07-27-2023 take [...] for 5 day(s), 10 tab(s), Refill(s) 0, [facility]/pharmacy #[id number], 165, cm, 10/02/23 17:37:00 EDT, Height/Length Dosing, 70.5, kg, 10/02/23 17:37:00 EDT, Weight Dosing Start Date: 10/02/23 Stop Date: 10/07/23 Status: Ordered Syringe, Disposable, 3 ML misc (3 sources) Start: 12-18-2022 Syringe, Dispo sable, 3 ML misc as directed q2 weeks for 30 days 12/18/2022 Active 24 hr topiramate 200 mg extended release oral capsule (3 sources) Start: 06-08-2022 Topiramate ER (Trokendi XR) 200 MG capsule sustained-release 24 hr 1 capsule 1 (one) time each day at the same time 06/08/2022 Active vitamin b12 1 mg/ml injectable solution (3 sources) Vitamin B12 cyanocobalamin (Vitamin B-12) 1000 MCG/ML injection 1 mL Injection [id number] for 30 days Active Completed/Discontinued Medications Medication [...] % 150 mL with bupivacaine-EPINEPHrine (MARCAINE-w/EPINEPHRINE) 0.5% -1:292545 40 mL, lidocaine-EPINEPHrine 50 mL (1 source) Start: 03-31-2020 End: 03-31-2020 sodium chloride 0.9 % 150 mL with bupivacaine-EPINEPHrine (MARCAINE-w/EPINEPHRINE) 0.5% -1:898947 40 mL, lidocaine-EPINEPHrine 50 mL spironolactone 100 [...] Test Name Value Interpretation Reference Range Facility ALL CBC WITH AUTO DIFFon BASOPHILS ABSOLUTE AUTO 0.1 [facility] Basophils/100 WBC (Bld) 0.9 % 0.2 - 2.0 % [facility] Eosinophils/100 WBC (Bld) 3.8 % 0.9 - 7.0 % [facility] Erythrocyte distribution width (RBC) [Ratio] 11.7 % 11.0 - 15.0 % [facility] Hematocrit (Bld) [Volume fraction] 40.6 % 36.0 - 48.0 % [facility] Hemoglobin (Bld) [Mass/Vol] 13.2 g/dL 12.0 - 16.0 g/dL [facility] IMMATURE GRANULOCYTES ABS AUTO 0.01 [facility] Immature granulocytes/100 WBC (Bld) 0.2 % 0.0 - 0.5 % [facility] LYMPHOCYTES ABSOLUTE AUTO 1.5 [facility] Lymphocytes/100 WBC (Bld) 22.9 % 20.5 - 60.0 % [facility] MCH (RBC) [Entitic mass] 30.2 pg 26.7 - 34.0 pg [facility] MCHC (RBC) [Mass/Vol] 32.5 g/dL 29.9 - 35.2 g/dL [facility] MCV (RBC) [Entitic vol] 92.9 fL 81.0 - 99.0 fL [facility] MONOCYTES ABSOLUTE AUTO 0.5 [facility] Monocytes/100 WBC (Bld) 8.1 % 1.7 - 12.0 % [facility] NEUTROPHILS ABSOLUTE AUTO 4.2 [facility] Neutrophils/100 WBC (Bld) 64.1 % 43.0 - 75.0 % [facility] Platelet mean volume (Bld) [Entitic vol] 9.8 fL 9.5 - 13.5 fL [facility] EO # 0.3 [facility] PLT 330 [facility] RBC 4.37 [facility] WBC 6.5 [facility] Abdomen/Pelvis w/ Contras ton 10-03-2023 CT [...] ml's: 100 Rectal Contrast Given? No Normal [facility] ED Note-Physicianon 10-03-19 ED Note-Physician ED Note-Physician Basic Information Time Seen: Deuce JO, Adina LBrock 10/02/2023 19:08 Chief Complaint pt. had [employer] surgery with Dr. Bush in July to [...] 5 day(s), 10 tab(s), Refill(s) 0, [id number], 165, cm, 10/02/23 17:37:00 EDT, Height/Length Dosing, [...] Mcclain In 3 days 10/05/2023 EDT [address], [address] [phone]- [phone] Business (1) Additional Instructions: Call to [facility] (more content not included)... Normal [facility] Comment on above: Result Comment: Elec tronically [...] CAPRI Technical Comments Transabdominal Ultrasound Performed Normal [facility] BMPon 10-02-2023 Creatinine [Mass/Vol] 0.8 mg/dL Normal 0.5-1.3 [facility] Comment on above: Performed By: #### 2 [id number] #### [facility] Laboratory [address] [place] [address] Glucose [Mass/Vol] 87 mg/dL Normal 55-199 [facility] Comment on above: Performed By: #### 2 [id number] #### [facility] Laboratory [address] [place] [address] Urea nitrogen [Mass/Vol] 18 mg/dL Normal 5-21 [facility] Comment on above: Performed By: #### 2 [id number] #### [facility] Laboratory [address] [place] [address] Urea nitrogen/Creatinine [Mass ratio] 22 No Units High 10-20 [facility] Comment on above: Performed By: #### 2 [id number] #### [facility] Laboratory [address] [place] [address] Anion gap [Moles/Vol] 10 mmol/L Normal 6-16 [facility] Comment on above: Performed By: #### 2 [id number] #### [facility] Laboratory [address] [place] [address] Calcium [Mass/Vol] 9.6 mg/dL Normal 8.9-11.1 [facility] Comment on above: Performed By: #### 2 [id number] #### [facility] Laboratory [address] [place] [address] Chloride [Moles/Vol] 106 mmol/L Normal 101-111 [facility] Comment on above: Performed By: #### 2 [id number] #### [facility] Laboratory [address] [place] [address] CO2 [Moles/Vol] 24 mmol/L Normal 21-31 [facility] Comment on above: Performed By: #### 2 [id number] #### [facility] Laboratory [address] [place] [address] Potassium [Moles/Vol] 4.0 mmol/L Normal 3.5-5.3 [facility] Comment on above: Performed By: #### 2 [id number] #### [facility] Laboratory [address] [place] [address] Sodium [Moles/Vol] 136 mmol/L Normal 135-145 [facility] Comment on above: Performed By: #### 2 [id number] #### [facility] Laboratory [address] [place] [address] CBC w/ Auto Diffon 4 Basophils/100 WBC (Bld) 1.0 % Normal 0.0-2.0 [facility] Comment on above: Performed By: #### 2 [id number] #### [facility] Laboratory [address] [place] [address] Basophils/Leukocytes Auto (Bld) [Pure # fraction] 0.1 E9/L Normal 0.0-0.2 [facility] Comment on above: Performed By: #### 2 [id number] #### [facility] Laboratory [address] [place] [address] Eosinophils (Bld) [#/Vol] 0.3 E9/L Normal 0.0-0.5 [facility] Comment on above: Performed By: #### 2 [id number] #### [facility] Laboratory [address] [place] [address] Eosinophils/100 WBC (Bld) 3.3 % Normal 0.0-8.0 [facility] Comment on above: Performed By: #### 2 [id number] #### [facility] Laboratory [address] [place] [address] Erythrocyte distribution width (RBC) [Ratio] 12.9 % Normal 10.9-14.2 [facility] Comment on above: Performed By: #### 2 [id number] #### [facility] Laboratory [address] [place] [address] Hematocrit (Bld) [Volume fraction] 39.6 % Normal 34.0-46.0 [facility] Comment on above: Performed By: #### 2 [id number] #### [facility] [address] [place] [address] Hemoglobin (Bld) [Mass/Vol] 13.8 g/dL Normal 12.0-16.0 [facility] Comment on above: Performed By: #### 2 [id number] #### [facility] Laboratory [address] [place] [address] Lymphocytes (Bld) [#/Vol] 1.7 E9/L Normal 1.0-4.0 [facility] Comment on above: Performed By: #### 2 [id number] #### [facility] Laboratory [address] [place] [address] Lymphocytes/100 WBC (Bld) 17.6 % Normal 14.0-50.0 [facility] Comment on above: Performed By: #### 2 [id number] #### [facility] Laboratory [address] [place] [address] MCH (RBC) [Entitic mass] 31.5 pg Normal 27.0-34.0 [facility] Comment on above: Performed By: #### 2 [id number] #### [facility] Laboratory [address] [place] [address] MCHC (RBC) [Mass/Vol] 34.8 g/dL Normal 31.4-36.0 [facility] Comment on above: Performed By: #### 2 [id number] #### [facility] Laboratory [address] [place] [address] MCV (RBC) [Entitic vol] 90.5 fL Normal 80.0-100.0 [facility] Comment on above: Performed By: #### 2 [id number] #### [facility] Laboratory [address] [place] [address] Monocytes (Bld) [#/Vol] 1.0 E9/L Normal 0.2-1.0 [facility] Comment on above: Performed By: #### 2 609352 #### [facility] Laboratory [address] [place] [address] Neutrophils (Bld) [#/Vol] 6.5 E9/L Normal 2.0-7.5 [facility] Comment on above: Performed By: #### 2 [id number] #### [facility] Laboratory [address] [place] [address] Neutrophils/100 WBC (Bld) 68.1 % Normal 36.0-75.0 [facility] Comment on above: Performed By: #### 2 383992 #### [facility] Laboratory [address] [place] [address] Platelet 357.0 E9/L Normal 150.0-500.0 [facility] Comment on above: Performed By: #### 2 [id number] #### [facility] Laboratory [address] [place] [address] Platelet mean volume (Bld) [Entitic vol] 7.9 fL Normal 6.4-10.8 [facility] Comment on above: Performed By: #### 2 [id number] #### [facility] Laboratory [address] [place] [address] RBC (Bld) [#/Vol] 4.4 E12/L Normal 4.3-5.9 [facility] Comment on above: Performed By: #### 2 [id number] #### [facility] Laboratory [address] [place] [address] WBC corrected for nucl RBC Auto (Bld) [#/Vol] 9.5 E9/L Normal 4.0-11.0 [facility] Comment on above: Performed By: #### 2 [id number] #### [facility] Laboratory [address] [place] [address] CHEMISTRYOrdered By: SYSTEM SYSTEM on 10-02-2023 Albumin [...] 2023 ED Clinical Summary ED Clinical Summary [place] [address] ED Clinical Summary Person Information Name: MONIKA HDZ/[facility] Age: 43 Years : 1980 Sex: Female Language: Ukrainian PCP: ALDEN MELÉNDEZ DO Marital Status: Single [...] 10/02/2023 22:52:55 10/02/2023 22:52:55 10/02/2023 22:52:55 ADDRESS: [address] [place] [phone] PHYS DOC NOTES: MEDICAL INFORMATION: Prescriptions Given: New Medications [facility]/pharmacy #[id number], [address], [place] [id number], [phone] sulfamethoxazole-trim ethoprim (Bactrim D.S. 800 mg-160 mg Tab) 1 Tablets By Mouth 2 times a day for 5 Days. Refills: 0. PATIENT EDUCATION INFORMATION: Instructions: Abdominal Pain, Adult, Jhvb-[id number] Follow up: With: Address: When: Octavio Mcclain [address] [place] [address], [address], [facility] [address] [place] [phone] Business (1) In 3 days 10/05/2023 Comments: Call to schedule a follow-up appointment with the teenage babysitter if symptoms not improve in the next 2 to 3 days. Take the antibiotic in entirety. Return to the ED with any worsening symptoms. With: Address: When: ALDEN MELÉNDEZ [address] [place] [address] Business (1) In 3 days DIAGNOSIS: Acute UTI (urinary tract infection); Generalized abdominal pain; Ovarian cyst, right Normal [facility] ED Patient Summaryon ED Patient Summary ED Patient Summary [address] [address] Patient Discharge Instructions Person Information Name: MONIKA HDZ Age: 43 Years Arrival Date: 10/02/2023 16:52:16 Discharge Diagnosis: Acute UTI (urinary tract infection); Generalized abdominal pain; Ovarian cyst, right Primary Care Physician: ALDEN MELÉNDEZ DO Provider Information Primary Provider: Patience Gomes DO [employer] Closer:Adina Tripathi PA-C The exam and treatment you received in the Emergency Department were for an urgent problem and are not intended as complete care. It is important that you follow up with a doctor, nurse practitioner, or physician?s document control assistant for ongoing care. If your symptoms [...] Follow-up Instructions: With: Address: When: Octavio Mcclain [address] [place] [address], [address], [place] [phone] [employer] (1) In 3 days 10/05/2023 Comments: Call to schedule a follow-up appointment with the teenage babysitter if symptoms not improve in the next 2 to 3 days. Take the antibiotic in entirety. Return to the ED with any worsening symptoms. With: Address: When: ALDEN MELÉNDEZ [facility] [address] [place] [address] Business (1) In 3 days In the event that this physician does not participate in your insurance network, please consult with your insurance company to find a nearby participating provider. Patient Education Materials: Abdominal Pain, Adult, Mdxn-ah-Yibm A MESSAGE TO ALL PATIENTS REGARDING OPIOIDS PRESCRIPTION OPIOIDS: WHAT YOU NEED TO KNOW Prescription opioids can be used to help relieve vnvavewx-gn-uhtlse pain and are often prescribed following a [...] take-back p (more content not included)... Normal [facility] HEMATOLOGYOrdered By: SYSTEM SYSTEM on 10-02-2023 Basophils/100 [...] (S) [Mass conc ratio] 1.3 Normal 1.1-2.2 [facility] Comment on above: Performed By: #### 2 [id number] #### [facility] Laboratory [address] [place] [address] ALP [Catalytic activity/Vol] 51 Int._Unit/L Normal 21-98 [facility] Comment on above: Performed By: #### 2 [id number] #### [facility] Laboratory [address] [place] [address] ALT No additional P-5'-P [Catalytic activity/Vol] 11 Int._Unit/L Normal 6-46 [facility] Comment on above: Performed By: #### 2 360256 #### [facility] Laboratory [address] [place] [address] AST [Catalytic activity/Vol] 14 Int._Unit/L Normal 5-43 [facility] Comment on above: Performed By: #### 2 515046 #### [facility] Laboratory [address] [place] [address] Globulin (S) [Mass/Vol] 3.2 g/dL Normal 1.4-4.0 [facility] Comment on above: Performed By: #### 2 [id number] #### [facility] Laboratory [address] [place] [address] Protein [Mass/Vol] 7.3 g/dL Normal 6.0-7.8 [facility] Comment on above: Performed By: #### 2 [id number] #### [facility] Laboratory [address] [place] [address] Albumin [Mass/Vol] 4.1 g/dL Normal 3.3-5.0 [facility] Comment on above: Performed By: #### 2 [id number] #### [facility] Laboratory [address] [place] [address] Bilirubin [Mass/Vol] 0.9 mg/dL Normal 0.0-1.1 [facility] Comment on above: Performed By: #### 2 [id number] #### [facility] Laboratory [address] [place] [address] Bilirubin.direct [Mass/Vol] 0.1 mg/dL Normal 0.0-0.4 [facility] Comment on above: Performed By: #### 2 [id number] #### [facility] Laboratory [address] [place] [address] Bilirubin.indirect [Mass or moles/Vol] 0.8 mg/dL Normal 0.1-0.9 [facility] Comment on above: Performed By: #### 2 [id number] #### [facility] Laboratory [address] [place] [address] Lipase Levelon 10-02-2023 Lipase [Catalytic activity/Vol] 14 U/L Normal 13-58 [facility] Comment on above: Performed By: #### 2 [id number] #### [facility] Laboratory [address] [place] [address] SEROLOGYOrdered By: Adina lópez on 10-02-2023 HCG.beta subunit (U) [Moles/Vol] Negative Normal [facility] Sero U BetaHcg Qualon 10-02-2023 HCG.beta subunit (U) [Moles/Vol] Negative Normal [facility] Comment on above: Performed By: #### 2 [id number] #### [facility] Laboratory [address] [place] [address] UA with Cult Rflxon 10-02-19 24 Bilirubin Ql (U) Negative Normal Negative [facility] Comment on above: Performed By: #### 4 [id number] #### [facility] Laboratory [address] [place] [address] Clarity (U) Clear Normal Clear [facility] Comment on above: Performed By: #### 4 [id number] #### [facility] Laboratory [address] [place] [address] Color (U) Yellow Normal Yellow [facility] Comment on above: Result Comment: Micr oscopic readings are only performed on those samples that meet specific criteria set forth by [facility] Laboratory. Performed By: #### 4 [id number] #### [facility] Laboratory [address] [place] [address] Epithelial cells.squamous Auto (Urine sed) [#/Area] 0-2 Invalid Interpretation Code [facility] Comment on above: Performed By: #### 4 [id number] #### [facility] Laboratory [address] [place] [address] Glucose Ql (U) Negative Normal Negative [facility] Comment on above: Performed By: #### 4 [id number] #### [facility] Laboratory [address] [place] [address] Hemoglobin Auto test strip (U) [Mass/Vol] Negative Normal Negative [facility] Comment on above: Performed By: #### 4 [id number] #### [facility] Laboratory [address] [place] [address] Ketones Auto test strip Ql (U) Negative Normal Negative [facility] Comment on above: Performed By: #### 4 [id number] #### [facility] Laboratory [address] [place] [address] Leukocyte esterase Auto test strip Ql (U) 250 Donald/uL Abnormal Negative [facility] Comment on above: Performed By: #### 4 [id number] #### [facility] Laboratory [address] [place] [address] Mucus Auto Ql (U) 1+ [id number] Abnormal Negative [facility] Comment on above: Performed By: #### 4 [id number] #### [facility] Laboratory [address] [place] [address] Nitrite Auto test strip Ql (U) Negative Normal Negative [facility] Comment on above: Performed By: #### 4 [id number] #### [facility] Laboratory [address] [place] [address] pH (U) 5.5 [pH] Invalid Interpretation Code 5.0-9.0 [facility] Comment on above: Performed By: #### 4 [id number] #### [facility] Laboratory [address] [place] [address] Protein Ql (U) Trace Abnormal Negative [facility] Comment on above: Performed By: #### 4 [id number] #### [facility] Laboratory [address] [place] [address] RBC Ql (U) 0-3 Normal 0-3 [facility] Comment on above: Performed By: #### 4 [id number] #### [facility] Laboratory [address] [place] [address] Specific gravity (U) [Rel density] 1.029 Invalid Interpretation Code 1.005-1.030 [facility] Comment on above: Performed By: #### 4 [id number] #### [facility] Laboratory [address] [place] [address] Urobilinogen (U) [Mass/Vol] Negative Normal Negative [facility] Comment on above: Performed By: #### 4 [id number] #### [facility] [address] [place] [address] 97506 WBC Auto (Urine sed) [#/Area] 6-15 Abnormal 0-5 [facility] Comment on above: Performed By: #### 4 [id number] #### [facility] [address] [place] [address] 99247 Type of Urine collection method Clean Catch Normal [facility] Comment on above: Performed By: #### 4 [id number] #### [facility] [address] [place] [address] 69334 URINALYSISOrdered By: SYSTEM SYSTEM on 10-02-2023 Bilirubin Ql (U) Negative Normal Negativemg/ d L [facility] Auto SS Clarity (U) Clear (10/02/23 5:39 PM) Normal Clear [facility] UA Auto SS Color (U) Yellow 1 (10/02/23 5:39 PM) Normal Yellow [facility] UA Auto SS Comment on above: Interpretive Data: M icroscopic readings are only performed on those samples that meet specific criteria set forth by [facility]. Epithelial cells.squamous Auto (Urine sed) [#/Area] [...] Desc Clean Catch (10/02/23 5:39 PM) Normal [facility] UA Auto SS eGFRon 10-02-2023 eGFR 94 mL/min/1.73 m2 Normal >=59 [facility] Comment on above: Order Comment: Order added by Discern Expert. Performed By: #### 1 [id number] #### [facility] [address] [place] [address] Gallo 07-27-2023 L Specimen: [id number] Received: 07/31/23 Status: KEREN Req Num: [id number] Spec Type: Surgical Subm Dr: Chris Ballard Tissues: A Fallopian Tube - Sterilization (BILATERAL FT/ESSURE COILS) Procedures: HE/2, Gross/Micro L2 Age/ Patient Sex Location Account Attending Physician Monika Hdz 42/F LABELL [id number] Chris Ballard SPEC NUM: [id number] RECD: 07/31/23 STATUS: KEREN REQ NUM: [id number] DWAYNE: 07/27/[address]: Chris Ballard ENTERED: 07/31/23 [facility] DR: Antony,Lab SPEC TYPE: Surgical DEPT: [...] intact luminal center lined by paez mucosa. Ct Scan Technologist sections are submitted in A1 (tube 1) and A2 (tube #2). -------- Specimen: [id number] Received: 07/31/23 Status: KEREN Bonilla Num: [id number] Spec Type: Surgical Subm Dr: Chris Ballard Tissues: A Fallopian Tube - Sterilization (BILATERAL FT/ESSURE COILS) Procedures: HE/2, Gross/Micro L2 -------- Patient: Monika Hdz [id number] (Continued) -------- Specimen: [id number] Received: 07/31/23 (Continued) Gross Description (Continued) Signed (signature on file) Kiara Prasad MD 08/01/23 1854 -------- Specimen: [id number] Received: 07/31/23 Status: KEREN Bonilla Num: [id number] Spec Type: Surgical Subm Dr: Chris Ballard Tissues: A Fallopian Tube - Sterilization (BILATERAL FT/ESSURE COILS) Procedures: HE/2, Gross/Micro L2 -------- Patient: Monika Hdz [id number] (Continued) -------- Specimen: [id number] Received: 07/31/23 (Continued) Gross Description (Continued) TW CPT Codes 35074, 60599 -------- -------- Specimen: [id number] Received: 07/31/23 Status: KEREN Chad Num: [id number] Spec Type: Surgical Subm Dr: Chris Ballard Tissues: A Fallopian Tube - Sterilization (BILATERAL FT/ESSURE COILS) Procedures: HE/2, Gross/Micro L2 -------- Patient: Monika Hdz [id number] (Continued) -------- Signed (signature on file) Kiara Prasad MD 08/01/231853 [facility] Gallo 07-17-2023 L Specimen: [id number] Received: 07/18/23 Status: RENEEAnay Bonilla Num: [id number] Spec Type: Surgical Subm Dr: Chris Ballard Tissues: A Endometrium - Biopsy (EMBX) Procedures: HE/2, Gross/Micro L4 Age/ Patient Sex Location Account Attending Physician Monika Hdz 42/F LABELL [id number] Chris Ballard SPEC NUM: [id number] RECD: 07/18/23 STATUS: RENEEAnay BONILLA NUM: [id number] DWAYNE: 07/17/23- SUBM DR: Chris Ballard ENTERED: 07/18/23-[address]: Antony,Lab SPEC TYPE: Surgical DEPT: AMBER ELIAS ORDERED: JOE/Shayy, Gross/Micro L4 ORDERED: 2, Gross/Micro L4 Pathological Diagnosis Endometrium, biopsy: Secretory endometrium. Gross Description Received in formalin, labeled with the patient's name, date of and embx are multiple paez tissue fragments admixed with mucus measuring in aggregate 2.1 x 1.5 x 0.3 cm, entirely submitted in A1. Clinical history: Menorrhagia with irregular cycles CPT Codes 88032 -------- -------- Specimen: [id number] Received: 07/18/23 Status: KEREN Bonilla Num: [id number] Spec Type: Surgical Subm Dr: Chris Ballard Tissues: A Endometrium - Biopsy (EMBX) Procedures: JOE, Gross/Micro L4 -------- Patient: Monika Hdz [id number] (Continued) -------- Signed (signature on file) Criss Shirley MD 07/19/23 1419 Normal [facility] Provider Letteron 04-27-2023 Provider Letter April 27, 2023 MONIKA HDZ [address] [place] [address] [place] [address] : 1980 Dear Monika, We have been [...] your prompt attention to this matter. Sincerely, [facility] [phone] Normal [facility] Physician Referralon 024 Physician Referral [phone] [id number] Normal [facility] Basic Metabolic Profon 03-16 Anion gap [Moles/Vol] 7 mmol/L Low 9-17 [facility] Comment on above: Performed By: #### B MP, CDP, HCG #### [facility] [address] [place] [address] Financial Management Consultant: Wilder Galaviz MD BUN/CRE Ratio 35 High 9-20 [facility] Comment on above: Performed By: #### B MP, CDP, HCG #### [facility] [address] [place] [address] Financial Management Consultant: Wilder Galaviz MD Calcium [Mass/Vol] 9.3 mg/dL Normal 8.6-10.4 [facility] Comment on above: Performed By: #### B MP, CDP, HCG #### [facility] [address] [place] [address] Financial Management Consultant: Wilder Galaviz MD Chloride [Moles/Vol] 101 mmol/L Normal 98-107 [facility] Comment on above: Performed By: #### B MP, CDP, HCG #### [facility] [address] [place], [place] [id number] Financial Management Consultant: Wilder Galaviz MD CO2 [Moles/Vol] 26 mmol/L Normal 20-31 [facility] Comment on above: Performed By: #### B MP, CDP, HCG #### [facility] [address] [place] [address] Financial Management Consultant: Wilder Galaviz MD Creatinine [Mass/Vol] 0.4 mg/dL Low 0.5-0.9 [facility] Comment on above: Performed By: #### B DASH CDP, HCG #### [facility] [address] [place] [address] Financial Management Consultant: Wilder Galaviz MD GFR/1.73 sq M.predicted among non-blacks MDRD (S/P/Bld) [Vol rate/Area] mL/min/{1.73_m2} Normal >60 [facility] Comment on above: Result Comment: [...] By: #### B MP, CDP, HCG #### [facility] [address] [place] [address] Financial Management Consultant: Wilder Galaviz MD Glucose [Mass/Vol] 99 mg/dL Normal 70-99 [facility] Comment on above: Performed By: #### B MP, CDP, HCG #### [facility] [address] [place], [place] 0824083 Financial Management Consultant: Wilder Galaviz MD Potassium [Moles/Vol] 3.7 mmol/L Normal 3.7-5.3 [facility] Comment on above: Performed By: #### B MP, CDP, HCG #### [facility] [address] [place] [address] Financial Management Consultant: Wilder Galaviz MD Sodium [Moles/Vol] 134 mmol/L Low 135-144 [facility] Comment on above: Performed By: #### B MP, CDP, HCG #### [facility] [address] [place], [place] [id number] Financial Management Consultant: Wilder Galaviz MD Urea nitrogen [Mass/Vol] 14 mg/dL Normal 6-20 [facility] Comment on above: Performed By: #### B MP, CDP, HCG #### [facility] [address] [place] [address] Dr. [place], [facility] Financial Management Consultant: Wilder Galaviz MD CBC with Diffon 03-16-2023 Abs. Basophil 0.06 k/uL Normal 0.00-0.20 [facility] Comment on above: Performed By: #### B MP, CDP, HCG #### [facility] [address] [place] [address] Dr. [place], [facility] Financial Management Consultant: Wilder Galaviz MD Abs.Imm.Granulocyte <0.03 Normal 0.00-0.30 [facility] Comment on above: Performed By: #### B MP, CDP, HCG #### [facility] [address] [place], [place] [id number] Financial Management Consultant: Wilder Galaviz MD Abs.Neutrophil (Seg) 3.62 k/uL Normal 1.50-8.10 [facility] Comment on above: Performed By: #### B MP, CDP, HCG #### [facility] [address] [place], [facility] Financial Management Consultant: Wilder Galaviz MD Basophils/100 WBC (Bld) 1 % Normal 0-2 [facility] Comment on above: Performed By: #### B MP, CDP, HCG #### [address] [place], [place] [address] Financial Management Consultant: Wilder Galaviz MD Eosinophils (Bld) [#/Vol] 0.17 10*3/uL Normal 0.00-0.44 [facility] Comment on above: Performed By: #### B MP, CDP, HCG #### [address] [place], [place] [id number] Financial Management Consultant: Wilder Galaviz MD Eosinophils/100 WBC (Bld) 3 % Normal 1-4 [facility] Comment on above: Performed By: #### B MP, CDP, HCG #### [address] [place], [facility] Financial Management Consultant: Wilder Galaviz MD Erythrocyte distribution width (RBC) [Ratio] 12.2 % Normal 11.8-14.4 [facility] Comment on above: Performed By: #### B MP, CDP, HCG #### [address] [place], [facility] Financial Management Consultant: Wilder Galaviz MD Hematocrit (Bld) [Volume fraction] 41.3 % Normal 36.3-47.1 [facility] Comment on above: Performed By: #### B MP, CDP, HCG #### [address] [place], [facility] Financial Management Consultant: Wilder Galaviz MD Hemoglobin (Bld) [Mass/Vol] 13.6 g/dL Normal 11.9-15.1 [facility] Comment on above: Performed By: #### B MP, CDP, HCG #### [address] [place], [place] [address]83 Financial Management Consultant: Wilder Galaviz MD Immature granulocytes/100 WBC (Bld) 0 % Normal 0 [facility] Comment on above: Performed By: #### B MP, CDP, HCG #### [facility] [address] [place], [place] [id number] Financial Management Consultant: Wilder Galaviz MD Lymphocytes (Bld) [#/Vol] 1.78 10*3/uL Normal 1.10-3.70 [facility] Comment on above: Performed By: #### B MP, CDP, HCG #### [facility] [address] [place], [place] 9144383 Financial Management Consultant: Wilder Galaviz MD Lymphocytes/100 WBC (Bld) 28 % Normal 24-43 [facility] Comment on above: Performed By: #### B MP, CDP, HCG #### [address] [place], [place] [id number] Financial Management Consultant: Wilder Galaviz MD MCH (RBC) [Entitic mass] 30.8 pg Normal 25.2-33.5 [facility] Comment on above: Performed By: #### B MP, CDP, HCG #### [address] [place] [address] Financial Management Consultant: Wilder Galaviz MD MCHC (RBC) [Mass/Vol] 32.9 g/dL Normal 28.4-34.8 [facility] Comment on above: Performed By: #### B MP, CDP, HCG #### [facility] [address] [place] [address] Dr. [place], [facility] Financial Management Consultant: Wilder Galaviz MD MCV (RBC) [Entitic vol] 93.4 fL Normal 82.6-102.9 [facility] Comment on above: Performed By: #### B MP, CDP, HCG #### [address] [place] [address] Financial Management Consultant: Wilder Galaviz MD Monocytes (Bld) [#/Vol] 0.75 10*3/uL Normal 0.10-1.20 [facility] Comment on above: Performed By: #### B MP, CDP, HCG #### [facility] [address] [place] [address] Financial Management Consultant: Wilder Galaviz MD Monocytes/100 WBC (Bld) 12 % Normal 3-12 [facility] Comment on above: Performed By: #### B MP, CDP, HCG #### [facility] [address] [place], [facility] Financial Management Consultant: Wilder Galaviz MD Neutrophil (Seg) 56 % Normal 36-65 [facility] Comment on above: Performed By: #### B MP, CDP, HCG #### [address] [place], [facility] Financial Management Consultant: Wilder Galaviz MD NRBC Automated 0.0 per 100 WBC Normal 0.0 [facility] Comment on above: Performed By: #### B MP, CDP, HCG #### [facility] [address] [place] [address] Financial Management Consultant: Wilder Galaviz MD Platelet mean volume (Bld) [Entitic vol] 9.7 fL Normal 8.1-13.5 [facility] Comment on above: Performed By: #### B MP, CDP, HCG #### [address] [place], [place] [address] Financial Management Consultant: Wilder Galaviz MD Platelets (Bld) [#/Vol] 372 10*3/uL Normal 138-453 [facility] Comment on above: Performed By: #### B MP, CDP, HCG #### [facility] [address] [place], [place] [id number] Financial Management Consultant: Wilder Galaviz MD RBC (Bld) [#/Vol] 4.42 10*6/uL Normal 3.95-5.11 [facility] Comment on above: Performed By: #### B MP, CDP, HCG #### [facility] [address] [place] [address] Financial Management Consultant: Wilder Galaviz MD WBC (Bld) [#/Vol] 6.4 10*3/uL Normal 3.5-11.3 [facility] Comment on above: Performed By: #### B MP, CDP, HCG #### [facility] [address] [place] [address] Financial Management Consultant: Wilder Galaviz MD CT ABDOMEN PELVIS W [...] Kendall Rousseau MD 03/16/23 Final result Normal [facility] HCG Screen, Bloodon 03-16-19 HCG Screen, Blood Negative Normal [facility]G [facility] Comment on above: Result Comment: Spec imens with hCG levels near the threshold of the test (25 mIU/mL) may give a negative or indeterminate result. In such cases, another test should be performed with a new specimen in 48-72 hours. If early is suspected clinically in this setting, correlation with quantitative serum b-hCG level is suggested. [facility] has confirmed the use of plasma for this test. This has not been cleared or approved by the U.S. Food and Drug Administration. The FDA has determined that such clearance is not necessary. Performed By: #### B MP, CDP, HCG #### [facility] [address] [place] [address] Financial Management Consultant: Wilder Galaviz MD XR FOOT RIGHT (MIN 3 VIEWS)o n 09-03-2021 No acute osseous or soft tissue abnormality. [facility] EXAMINATION: THREE XRAY VIEWS OF THE RIGHT FOOT 09/03/2021 11:36 am COMPARISON: None. HISTORY: ORDERING SYSTEM PROVIDED HISTORY: Pain FINDINGS: There is no acute osseous abnormality. The joint spaces are maintained. The surrounding soft tissues are unremarkable. [facility] Milton Garica MD - 09/03/2021 EXAMINATION: THREE XRAY VIEWS OF THE RIGHT FOOT 09/03/2021 11:36 am COMPARISON: None. HISTORY: ORDERING SYSTEM PROVIDED HISTORY: Pain FINDINGS: There is no acute osseous abnormality. The joint spaces are maintained. The surrounding soft tissues are unremarkable. IMPRESSION: No acute osseous or soft tissue abnormality. [employer] Phone: Radiology Study observation (narrative) [employer] Phone: XR FOOT RIGHT (MIN 3 VIEWS)O rdered By: Milton Garcia on 09-03-[address] [facility] [employer] Phone: COVID Quick Testingon 2020 Result Negative [employer] Other POCT urine pregnancyon 03-31 Beta HCG ( test) Ql (U) Negative NEGATIVE [place], [place] Comment on above: Specimens with hCG l evels near the threshold of the test (25 mIU/mL) may give a negative or indeterminate result. In such cases, another test should be performed with a new specimen in 48-72 hours. If early is suspected clinically in this setting, correlation with quantitative serum b-hCG level is suggested. TESTING PERFORMED AT [address] [address] Surgical Pathologyon 021 Surgical Pathology (NOTE) -- [...] cm in aggregate. Sectioning reveals no masses. Ct Scan Technologist sections 2cs. 2. STEFANIA HDZ, LEFT BREAST Fragments of fibrofatty tissue and unremarkable paez skin, 1109 grams and 20.0 x 18.0 x 7.0 cm in aggregate. Sectioning reveals no masses. Ct Scan Technologist sections 2cs. tm Microscopic Description 1, 2. Microscopic examination performed. SURGICAL PATHOLOGY CONSULTATION Patient Name: MONIKA HDZ [facility] Rec: [id number] Path Number: [id number] [facility] [address] [place] [id number] Normal [facility] Comment on above: Performed By: #### P PPVS #### [facility] [address] [place] [address] Financial Management Consultant: Brown Tatum MD [id number] 03-28-2020 SARS-CoV-2 Normal [facility] Comment on above: Performed By: #### C OVID #### [address] [id number] Financial Management Consultant: Brown Tatum MD SARS-CoV-2 Not Detected Normal NOTDET [facility] Comment on above: Result Comment: The specimen is NEGATIVE for SARS-CoV-2, the novel coronavirus associated with COVID-19. A negative result does not rule out COVID-19. Padmini SARS-CoV-2 for use on the Padmini [employer] is a real-time RT-PCR test intended [...] this assay. Fact sheet for Healthcare Providers: https://www.fda.gov/media/680484/download Fact sheet for Patients: https://www.fda.gov/media/633875/download METHODOLOGY: RT-PCR Performed By: #### C OVID #### [facility] [address] [place] [address] Financial Management Consultant: Brown Tatum MD SARS-CoV-2,Rapid [facility] Comment on above: Performed By: #### C OVID #### [facility] [address] [place] [address] Financial Management Consultant: Brown Tatum MD [id number] 03-27-2020 SARS-CoV-2 Source .NASOPHARYNGEAL SWAB [facility] Comment on above: Performed By: #### C OVID #### [facility] [address] [place] [address] Financial Management Consultant: Brown Tatum MD [facility] 03-22-2020 Bilirubin [Mass/Vol] Negative Normal NEGATIVE [facility] Comment on above: Performed By: #### U A #### [facility] [address] [place] [address] Liz Sylwia BLOOD LARGE Abnormal NEGATIVE [facility] Comment on above: Performed By: #### U A #### [facility] [address] [place] [address] Liz Sylwia Clarity (U) CLEAR Normal CLEAR [facility] Comment on above: Performed By: #### U A #### [facility] [address] [place] [address] Liz Sylwia Color (U) LT. YELLOW Normal YELLOW [facility] Comment on above: Performed By: #### U A #### [facility] [address] [place] [address] Liz Sylwia Glucose [Mass/Vol] Negative Normal NEGATIVE [facility] Comment on above: Performed By: #### U A #### [facility] [address] [place] [address] Liz Sylwia Ketones Ql (U) Negative Normal NEGATIVE [facility] Comment on above: Performed By: #### U A #### [facility] [address] [place] [address] Liz Sylwia Nitrite Ql (U) Negative Normal NEGATIVE [facility] Comment on above: Performed By: #### U A #### [facility] [address] [place] [address] Liz Sylwia pH (Bld) 6.0 Normal 5-9 [facility] Comment on above: Performed By: #### U A #### [facility] [address] [place] [address] Liz Sylwia SPEC GRAVITY 1.020 Normal 1.005-<=1.02 5 [facility] Comment on above: Performed By: #### U A #### [facility] [address] [place] [address] Liz Dao UA PROTEIN Negative Normal NEGATIVE/ TRACE [facility] Comment on above: Performed By: #### U A #### [facility] [address] [place], [place] [address] Liz Dao Urobilinogen Qn (U) 0.2 EU/dl Normal 0.2 - 1.0 [facility] Comment on above: Performed By: #### U A #### [facility] [address] [place], [place] [address] Liz Dao WBC (Bld) [#/Vol] Negative Normal NEGATIVE [facility] Comment on above: Performed By: #### U A #### [facility] [address] [place], [place] [address] Liz Dao Vital Signs Date Time Vital Sign Value Performing Clinician Facility 12-11-2023 14:08-0400 Body height 165.1 cm [employer] Work Phone: [facility] 12-11-2023 14:08-0400 Body mass index (BMI) [Ratio] 26.46 kg/m2 [employer] Work Phone: [facility] 12-11-2023 14:08-0400 Body weight 72.12 kg [employer] Work Phone: [facility] 12-11-2023 14:08-0400 Diastolic blood pressure 64 mm[Hg] [employer] Work Phone: [facility] 12-11-2023 14:08-0400 Systolic blood pressure 110 mm[Hg] [employer] Work Phone: [facility] 10-02-2023 22:51-0400 Diastolic blood pressure 71 mm[Hg] [facility] 10-02-2023 22:51-0400 Heart rate 67 /min [facility] 10-02-2023 22:51-0400 Mean blood pressure 82 mm[Hg] [facility] 10-02-2023 22:51-0400 Respiratory rate 15 /min [facility] 10-02-2023 22:51-0400 SaO2% (BldA) [Mass fraction] 99 % [facility] 10-02-2023 22:51-0400 Systolic blood pressure 105 mm[Hg] [facility] 10-02-2023 22:00-0400 Diastolic blood pressure 77 mm[Hg] [facility] 10-02-2023 22:00-0400 Heart rate 75 /min [facility] 10-02-2023 22:00-0400 Mean blood pressure 88 mm[Hg] [facility] 10-02-2023 22:00-0400 Respiratory rate 16 /min [facility] 10-02-2023 22:00-0400 SaO2% (BldA) [Mass fraction] 97 % [facility] 10-02-2023 22:00-0400 Systolic blood pressure 109 mm[Hg] [facility] 10-02-2023 21:00-0400 Diastolic blood pressure 84 mm[Hg] [facility] 10-02-2023 21:00-0400 Heart rate 71 /min [facility] 10-02-2023 21:00-0400 Mean blood pressure 94 mm[Hg] [facility] 10-02-2023 21:00-0400 SaO2% (BldA) [Mass fraction] 100 % [facility] 10-02-2023 21:00-0400 Systolic blood pressure 115 mm[Hg] [facility] 10-02-2023 17:31-0400 Body temperature 97.88 [degF] [facility] 10-02-2023 17:31-0400 Heart rate 90 /min [facility] 12-22-2020 12:15-0400 Body height 165.1 cm Latoya Beck Other [employer] Other 12-22-2020 12:15-0400 Body mass index (BMI) [Ratio] 26.62 kg/m2 [facility]oya Beck Other [employer] Other 12-22-2020 12:15-0400 Body temperature 100.5 [degF] Latoya Perrymond Other [employer] Other 12-22-2020 12:15-0400 Body weight 72.58 kg Latoya Beck Other [employer] Other 12-22-2020 12:15-0400 Respiratory rate 18 /min Latoya Beck Other [employer] Other 12-22-2020 12:15-0400 SaO2% (BldA) [Mass fraction] 98 % Latoya Beck Other [employer] Other 03-31-2020 12:15-0500 BP Diastolic 94 mm[Hg] [employer] [facility] [place] 03-31-2020 12:15-0500 BP Systolic 127 mm[Hg] [facility] [employer] [employer] [facility] , [place] 03-31-2020 12:15-0500 Pulse (Heart Rate) 80 /min [facility] [employer] [facility], [place] 03-31-2020 12:15-0500 Pulse Oximetry 93 % [facility] [employer] [employer] [facility] , [place] 03-31-2020 11:17-0500 Body Temperature 97.81 [degF] [facility] [place] 03-31-2020 06:24-0500 Respiratory Rate 19 /min [facility] [employer] [employer] [facility], [place] 03-31-2020 06:10-0500 BMI (Body Mass Index) 29.95 kg/m2 [facility] [employer] [facility], [place] 03-31-2020 06:10-0500 Body weight 81.65 kg Dylan Pruitt [facility] , [place] 03-31-2020 06:[id number] Height 165.1 cm [facility] [place] Encounters Encounter Date Encounter Type Care Provider Facility Start: 01-01-2024 End: 01-01-2024 Clinisync Result Encounter Chris Elio DO Work Phone: [facility] Unsolicited Start: 01-01-2024 End: 01-01-2024 Clinisync Result Encounter Chris Elio DO Work Phone: [facility] Unsolicited Start: 12-11-2023 End: 12-11-2023 Bamboo flowsheet Chris Elio DO Work Phone: [facility] Start: 12-11-2023 End: 12-11-2023 Bamboo flowsheet Chris Elio DO Work Phone: [facility] Start: 12-11-2023 End: 12-11-2023 Office outpatient visit 15 minutes Chris Elio DO Work Phone: [facility] Comment on above: Pre-op examination; Menorrhagia with regular cycle; Pelvic pain in female; Dyspareunia in female; Dysmenorrhea Start: 12-11-2023 End: 12-11-2023 Preprocedural examination done Chris Elio DO Work Phone: [facility] Start: 12-11-2023 End: 12-11-2023 ambulatory CHRIS ELIO Not Available Start: 11-15-2023 End: 11-15-2023 ambulatory VIVIANA NITESH Not Available Start: 10-08-2023 End: 10-08-2023 ambulatory VIVIANA NITESH Not Available Start: 10-02-2023 End: 10-02-2023 Emergency department patient visit Siena [facility] Start: 07-27-2023 End: 07-27-2023 ambulatory Chris Elio Facility:[facility] Start: 07-27-2023 End: 07-27-2023 ambulatory PHYSICIAN NO [facility] Work Phone: Start: 07-27-2023 End: 07-27-2023 Departed Referred PHYSICIAN NO [facility] Start: 07-17-2023 End: 07-17-2023 ambulatory Chris Elio Facility:[facility] Start: 07-17-2023 End: 07-17-2023 ambulatory PHYSICIAN NO [facility] Work Phone: Start: 07-17-2023 End: 07-17-2023 Departed Referred PHYSICIAN NO [facility] Start: 05-23-2023 End: 05-23-2023 ambulatory CHRIS ELIO Not Available Start: 03-20-2023 ambulatory Siena eloy Facility :[facility] Start: 03-16-2023 End: 03-16-2023 Emergency department patient visit [facility] Start: 04-22-2022 End: 05-10-2022 ambulatory Facility:[id number] Start: 03-29-2022 End: 04-12-2022 ambulatory Facility:[id number] Start: 09-03-2021 End: 09-05-2021 Subsequent hospital visit by physician Jack Arce Dr Room 4 [facility] Radiology Comment on above: Pain Start: 12-22-2020 (URG) Urgent Care Visit Latoya trujillo [facility] Start: 07-01-2020 Patient encounter procedure WILDER ORTIZ Facility: Start: 03-31-2020 End: 03-31-2020 Patient encounter procedure DYLAN PRUITT [facility] Start: 03-31-2020 End: 03-31-2020 Subsequent hospital visit by physician Dylan Pruitt Work Phone: [facility] Comment on above: Acute post-operative pain (Primary Dx) Start: 03-27-2020 End: 03-28-2020 Patient encounter procedure SHIRLEY KING [facility] Start: 03-27-2020 End: 03-27-2020 Subsequent hospital visit by physician Juan Luis Covid Screening Schedule [facility] Covid Screening Comment on above: Preop testing (Prima ry Dx) Start: 03-26-2020 Encounter for other preprocedural examination [facility] Start: 03-22-2020 End: 03-23-2020 Patient encounter procedure [facility] Facility: Encounter for other preprocedural examination [facility] Procedures Date Procedure Procedure Detail Performing Clinician Start: 01-01-2024 ALL CBC WITH AUTO DIFF Chris Ballard DO Work Phone: Start: 09-03-2021 Radex foot complete minimum 3 views Nadeen Michael 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 Work Phone: Start: 03-31-2020 Urine test visual color cmprsn meths Dylan Pruitt Work Phone: Plan of Treatment Date Care Activity Detail Author Start: 01-02-2024 End: 01-02-2024 Patient encounter procedure 01/02/2024 6:00 AM EDT Procedure Visit [facility] Chris Ballard, DO [address] [place], [place] [id number] [facility] Start: 12-11-2023 End: 12-11-2023 Patient encounter procedure 12/11/2023 2:00 PM EDT Consult [facility] [address] [facility] [place] [address] Chris Ballard, DO [address] [place] [address] Arrived [facility] Comment on above: Arrived Start: 11-10-2021 Influenza vaccination Flu vacc ine (Season Ended) [facility] Start: 04-05-2020 End: 04-05-2020 Office Visit 04/05/2020 Office Visit Plastic Surgery Dylan Pruitt MD [address] [place], [place] [id number] [facility] Start: 03-31-2020 End: 03-31-2020 Hospital Encounter [facility] [place] Comment on above: BREAST MAMMOPLASTY R EDUCTION Start: 03-27-2020 End: 03-26-2021 COVID-19 [place] Comment on above: Expected: 03/27/2020 , Expires: 03/26/2021 Once for 1 Occurrenc es starting 03/27/2020 until 03/27/2020 Start: 11-11-2019 Influenza vaccination Flu vaccine (# 1) [place] Start: 09-20-2011 Screening for malign ant neoplasm of cervix [facility] Start: 2002 Screening for malign ant neoplasm of cervix [facility] Start: 2000 DTaP/Tdap/Td vaccine (1 - Tdap) DTaP/Tdap/Td vaccine (1 - Tdap) [facility] Start: 09-20-1999 Hepatitis C screening Hepatitis C sc reen [facility] Start: 1996 HIV screening HIV screen [facility] Start: 1993 Depression Screen Depression Screen [facility] Start: 1986 COVID-19 Vaccine (1) COVID-19 Vaccin e (1) [facility] Start: 1982 Varicella vaccine (1 of 2 - 2-dose childhood series) Varicella vaccine (1 of 2 - 2-dose childhood series) [facility] Start: 1981 Hepatitis C screening Hepatitis C sc reen [place], [place] End: 03-31-2020 Blood glucose - POCT Blood glucose - POCT Point of Care Testing Routine One Time for 1 Occurrences starting 03/31/2020 until 03/31/2020 [place], [place] Comment on above: One Time for 1 Occur rences starting 03/31/2020 until 03/31/2020 COVID-19 COVID-19 Lab Rou david 03/27/2020 1:13 PM EST [place], [place] Oxygen therapy [[facility]ini [facility] Data Set] Initiate Oxygen Therapy Protocol Respiratory Care Routine Daily until discontinued starting 03/31/2020 [place] Comment on above: Daily until disconti nued starting 03/31/2020 Phase I & II - meter ed glucose Phase I & II - metered glucose Point of Care Testing Routine As Needed until discontinued starting 03/31/2020 [facility] [place] Comment on above: As Needed until disc ontinued starting 03/31/2020 End: 03-31-2020 , urine POCT , urine POCT Point of Care Testing Routine One Time for 1 Occurrences starting 03/31/2020 until 03/31/2020 [facility] Comment on above: One Time for 1 Occur rences starting 03/31/2020 until 03/31/2020 Surgical Pathology Surgical Path ology Lab Routine Release Upon Ordering for 1 Occurrences starting 03/31/2020 [facility] [place] Comment on above: Release Upon Orderin g for 1 Occurrences starting 03/31/2020 Payers Date Payer Category Payer Private Health Insurance [id number] 2011 Private Health Insurance GENERIC COMMERCIAL [id number] 2011 Unknown GENERIC COMMERCI AL GENERIC COMMERCIAL [id number] 2011-Present [address] [place] [address] [id number] 1981 Unknown [id number] .[id number] 1981 Unknown [id number] [id number] .2.175 1981 Unknown [id number] [id number] .2.593 1981 Unknown [id number] [id number] .2.593 1981 Unknown [id number] [id number] .2.173 1981 Unknown [id number] [id number] .2.727 1981 Unknown [id number] [id number] .2.727 1981 Unknown [id number] [id number] .2.1259 1981 Unknown [id number] 2.16.840.1.312729.3.579 .2.1259 1981 Unknown [id number] 2.16.840.1.636598.3.579 .2.9 1981 Unknown [id number] [id number] .2.1259 1981 Unknown [id number] [id number] .2.1259 1959 Private Health Insurance [id number] 1959 Self-pay Unknown [id number] .2.531 Unknown [id number] .2.531 Social History Date Type Detail Facility Start: 03-22-2020 End: 03-31-2020 Tobacco smoking status NHIS Former smoker [place] Start: 07-18-2023 End: 12-30-2019 History of tobacco use Current sm[place] End: 12-30-2019 History of tobacco use Cigarette Sm[place] Start: 03-22-2020 End: 03-31-2020 Cigarettes smoked current (pack per day) - Reported [place] Start: 03-22-2020 End: 03-31-2020 Tobacco use and exposure Never used [place] Start: 03-31-2020 End: 05-05-2020 Alcohol intake Current drinker of alcohol (finding) [place] Start: 11-25-2019 History SDOH Alcohol Frequency 3 [place] Start: 03-31-2020 Alcohol [facility] [place] Start: 1980 Sex Assigned At Not on file M [place], [place] Exposure to SARS-CoV -2 (event) Not sure [place] Sex Assigned At [facility] Start: 03-31-2020 History SDOH Alcohol Comment social [facility]ER[facility]ASQU[facility] [place] Work Phone: Start: 1980 Sex Assigned At Female F [facility] Tobacco smoking status No Smokin g Status Entered [facility] Tobacco smoking stat [facility] Tobacco smoking consumption unknown [facility] Healthcare Functional Status Date Assessment Result Facility 10-02-2023 Functional Status N/A [facility] Clinical Notes 12-22-2020 to 12-11-2023 Harper Mackay [...] on 01/02/[address] Ballard at [facility]. MEDICATIONS Current Outpatient Medications Medication Instructions cetirizine (ZyrTEC) 10 MG tablet Every 24 hours cyanocobalamin (Vitamin B-12) 1000 MCG/ML injection 1 mL Injection i8eeqsi for 30 days dicyclomine (Bentyl) 20 MG [...] nursing note reviewed. Exam conducted with a sausage meat trimmer present. Vitals: There is no height or [...] reviewed, and patient is to proceed to [facility] OR. Follow Up: Patient is to follow up at 1 & 6 weeks post operative to assess proper healing and recovery from procedure. Documented by Sylwia Sanchez LPN on behalf of: Chris Ballard DO documented in this encounter [facility] 10-03-2023 Hospital Discharge instructions Patient Education 10/02/2023 22:45:50 Abdominal Pain, Adult, Sjhi-be-Osip Abdominal Pain, Adult Many things can cause belly (abdominal) pain. Most times, belly pain is not dangerous. Many cases of belly pain can be watched and treated at home. Sometimes, though, belly pain is serious. Your doctor will try to find the cause of your belly pain. Follow these instructions at home: Medicines Take jpgy-hea-nrioznj and prescription medicines only as told by [...] your belly pain for any changes. Take ipwh-qiy-mmfdpqm and prescription medicines only as told by [...] provider. Document Revised: 07/07/2019 Document Reviewed: 07/07/2019 [employer] Patient Education 2022 [employer]. Follow Up Care 10/02/2023 16:55:29 With:Octavio Mcclain Address: [address] [place] [address], [address] [phone]- [phone] Business (1) When:10/05/2023 21:45:28 Comments:Call to schedule a follow-up appointment with the teenage babysitter if symptoms not improve in the next 2 to 3 days. Take the antibiotic in entirety. Return to the ED with any worsening symptoms. With:ALDEN MELÉNDEZ Address: [facility] [place] [address]- Business (1) When:Within 3 Day(s) [facility] 10-02-2023 Note ED Patient Education Note Gastroenterology Abdominal Pain, Adult Many things can cause belly (abdominal) pain. Most times, belly pain is not dangerous. Many cases of belly pain can be watched and treated at home. Sometimes, though, belly pain is serious. Your doctor will try to find the cause of your belly pain. Follow these instructions at home: Medicines ? Take xjxi-pif-rvjylne and prescription medicines only as told by [...] belly pain for any changes. ? Take urac-klz-trlxnox and prescription medicines only as told by [...] provider. Document Revised: 07/07/2019 Document Reviewed: 07/07/2019 [employer] Patient Education ? 2022 [employer]. [facility] 10-02-2023 Evaluation + Plan note Extrac concetta [...] 5 day(s), 10 tab(s), Refill(s) 0, [id number], 165, cm, 10/02/23 17:37:00 EDT, Height/Length Dosing, 70.5, kg, 10/02/23 17:37:00 EDT, Weight Dosing sulfamethoxazole-trimethoprim, 1 tab(s), Tab, Oral, Once, Stop date 10/02/23 21:42:00 EDT, STAT, Start date 10/02/23 21:42:[address] Abdomen/Pelvis w/ Contrast US Pelvis Non-OB Complete Diagnostic Tests Pending * Urine Culture 10/02/23 [facility]2021 Evaluation note* Encounter Date Diagnosis Assessment Notes [...] Patient care instructions given in writting by [facility] Care At Home document. Additional time spent conducting pre-visit phone call, screening for symptoms, instructions on social distancing, application and removal of PPE, and cleaning of examination room, equipment and supplies was preformed. Patient education given for testing methodology and results. Patient care instructions given in writting by [facility] Care At Home document. [employer] Other Evaluation note* Diagnosis Pain Generalized pain documented in this encounter [facility] Work Phone: evaluation noteNo assessment information available [facility] Work Phone: Evaluation note* Diagnosis Pre-op examination Menorrhagia with regular cycle Pelvic pain in female Unspecified symptom associated with female genital organs Dyspareunia in female Dysmenorrhea documented in this encounter [facility] Narrative - Reported* Type Description Date Medical History chronic depression Surgical History C section Surgical History tonsillectomy Surgical History essure [employer] Other Hospital course Narrative No data available for this section [facility] No data available for this section [facility] Discharge Instructions * Instructions* Terra Yates RN [...] ad fiber intake. You may also take aqot-maa-blqyhrk stool softener. We have found that 2 [...] at the surgery center (3rd entrance) on ___[id number] by ___[phone] . Please stop any blood [...] drive you home after your procedure. Your stud driver must be 18 years of age [...] Documents on File Type Date Recorded Patient Ct Scan Technologist Expl anation ACP-Advance Directive ACP-Power of Clay Shop Supervisor Documents on File Type Date Recorded Patient Ct Scan Technologist Expl anation ACP-Advance Directive ACP-Power of Clay Shop Supervisor Advance Directive Response Recorded Date/ Time Advance [...] To Contact Diagnoses Macromastia BILATERAL MACROMASTIA Procedures MS BREAST REDUCTION BREAST MAMMOPLASTY REDUCTION Dylan Pruitt MD [facility] [place] [address] [facility] Reason Comments Pre-op Visit Ordered Prescriptions (unrec [...] section and content) DATE CREATED AUTHOR 04/01/2020 [facility] DATE CREATED AUTHOR AUTHOR'S ORGANIZ ATION 04/02/2020 [facility] DATE CREATED AUTHOR AUTHOR'S ORGANIZ ATION 06/23/2020 [facility] DATE CREATED AUTHOR AUTHOR'S ORGANIZ ATION 05/11/2022 [facility] DATE CREATED AUTHOR AUTHOR'S ORGANIZ ATION 03/17/2023 [facility] DATE CREATED AUTHOR AUTHOR'S ORGANIZ ATION 08/01/2023 [facility] DATE CREATED AUTHOR AUTHOR'S ORGANIZ ATION 10/05/2023 [facility] DATE CREATED AUTHOR AUTHOR'S ORGANIZ ATION 12/13/2023 [facility] Specialists EPIC Care Teams (unrecognized sec tion and content) Country Printer Apprentice Relationship Specialty Start Date End Date Alden Meléndez MD [address] [address] PCP - General Family Medicine 03/24/20 Country Printer Apprentice Relationship Specialty Start Date End Date Alden Meléndez MD [address] [address] PCP - General Family Medicine 03/24/20 Team Status: Active Member Role Status Dates PHYSICIAN NO FAMILY Primary Care Provider Active Team Status: Inactive Member Role Status Dates PHYSICIAN NO FAMILY Primary Care Provider Active Start: July 17, 2023 End: July 17, 2023 Chris Ballard Attending Provider Active Start: Gutierrez mikayla 2023 End: July 17, 2023 Team Status: Inactive Member Role Status Dates Chris Ballard Attending Provider Active Start: Gutierrez [...] BE BASED ON THE PRIMARY CLINICAL RECORDS. [employer] provides no warranty or guarantee of the accuracy or completeness of information in this document.
[2024-01-02 06:40] LABS: Basophils Absolute Auto 0.1 10^3/uL (0.0-0.1); Basophils Percent Auto 1.8 % (0.2-2.0); Eosinophils Absolute Auto 0.3 10^3/uL (0.0-0.7); Eosinophils Percent Auto 5.1 % (0.9-7.0); Hematocrit 39.5 % (36.0-48.0); Hemoglobin 13.1 g/dL (12.0-16.0); Immature Granulocytes Abs Auto 0.01 10^3/uL (0.00-0.03); Immature Granulocytes Pct Auto 0.2 % (0.0-0.5); Lymphocytes Absolute Auto 1.9 10^3/uL (1.2-3.8); Lymphocytes Percent Auto 28.4 % (20.5-60.0); Mean Corpuscular HGB Conc 33.2 g/dL (29.9-35.2); Mean Corpuscular Hemoglobin 30.8 pg (26.7-34.0); Mean Corpuscular Volume 92.9 fL (81.0-99.0); Monocytes Absolute Auto 0.8 10^3/uL (0.3-0.8); Monocytes Percent Auto 11.9 % (1.7-12.0); Neutrophils Absolute Auto 3.5 10^3/uL (1.4-6.5); Neutrophils Percent Auto 52.6 % (43.0-75.0); Platelet Count 341 10^3/uL (150-450); Red Blood Count 4.25 10^6/uL (4.20-5.40); Red Cell Distribution Width 11.6 % (11.0-15.0); White Blood Count 6.6 10^3/uL (4.0-11.0)
[2024-01-02 06:52] LABS: Amphetamine Screen Urine NEGATIVE (NEGATIVE); Barbiturates Screen Urine NEGATIVE (NEGATIVE); Benzodiazepines Screen Urine NEGATIVE (NEGATIVE); Buprenorphine Screen Urine NEGATIVE (NEGATIVE); Cannabinoid Screen Urine NEGATIVE (NEGATIVE); Cocaine Screen Urine NEGATIVE (NEGATIVE); Methadone Screen Urine NEGATIVE (NEGATIVE); Methamphetamines Screen Urine NEGATIVE (NEGATIVE); Opiate Screen Urine NEGATIVE (NEGATIVE); Oxycodone Screen Urine NEGATIVE (NEGATIVE); Phencyclidine Screen Urine NEGATIVE (NEGATIVE); Tricyclic Antidepressant Urine NEGATIVE (NEGATIVE)
[2024-01-02 07:06] LABS: HCG Quantitative <1 mIU/mL
[2024-01-02] MEDS: METRONIDAZOLE/SODIUM CHLORIDE 500 MG/100 ML PREMIX 100 MG IV ×2 (07:19→16:41)
[2024-01-02] MEDS: LACTATED RINGER'S SOLUTION 1,000 ML 50 ML IV (07:19)
[2024-01-02] MEDS: SCOPOLAMINE 1 MG/3 DAYS TRANSDERM PATCH 1 PATCH TD (07:20)
[2024-01-02] MEDS: CIPROFLOXACIN 400 MG/200 ML D5W PREMIX 200 MG IV (07:53)
--- NOTE | 2024-01-02 09:19 | PM.ONB ---
Brief Operative Note Date of procedure: 01/02/24 Pre-op diagnosis general: failed ablation, pelvic pain, dysmenorrhea, aub, dyspareunia Post-op diagnosis: same as pre-op Procedure: NAME OF PROCEDURE: ? Robotic assisted laparoscopic hysterectomy with cystoscopy PROCEDURE:? The patient was taken back to the operating room, where she was prepped and draped in the normal sterile fashion after being placed in the dorsal lithotomy position.? Patient?s anesthesia was found to be adequate.? Surgical timeout was performed using two patient identifiers.? SCDs were on and in place.? Two grams of Ancef were given prior to the surgery.? Sterile Carroll catheter was inserted.? Standard size VCare was secured to the uterine cervix and the surgeon changed gloves.? Attention then was turned to the patient's abdomen, where a supraumbilical incision was then made.? Two S retractors were used to identify the patient?s fascia.? The fascia was then tented up using Samantha clamps and the patient?s fascia was incised sharply.? Patient?s abdomen was identified and entered bluntly.? The patient had the trocar placed and a pneumoperitoneum was obtained.? Approximately 4 liters of CO2 gas was used.? The camera was then placed through the trocar.? At this time, two robot trocars were placed in the patient?s left and right side, two hand widths from the midline, and this was placed under direct visualization.? Please note absent tubes were seen. The uterine ovarian ligament was identified and transected and ligated using the vessel sealer? The vessel sealer was carried down serially to the broad ligament, to the area of the bladder flap, which was then created anteriorly, and the uterine arteries were skeletonized and sealed using the vessel sealer.? The colpotomy was made using the monopolar cautery on cut, and this was carried circumferentially, posteriorly to anteriorly, until the uterus was amputated.? The specimen was then removed intact through the vagina, without difficulty.? The vagina was then closed using two running V-Loc in a non-lock fashion.? The robot was undocked.? The abdomen was desufflated.? The skin defects were closed using 4-0 Vicryl.? Please note, the fascia was closed using 0 Vicryl.? Sponge, lap and needle counts were correct x2.? Patient was taken to recovery room in stable condition.? The patient was awakened by Anesthesia first.? Patient tolerated procedure well.?? Anesthesia: MACKENZIEA Surgeon: Chris Ballard Hydroelectric Plant Mechanical Engineer: Armida Zuniga Estimated blood loss (mL): 50 Pathology: other (uterus and cervix) Condition: stable Disposition: PACU Urinary Catheter Management Urinary Catheter Management Urethral: Cath placed during this visit: no
[2024-01-02] MEDS: HYDROMORPHONE HCL 0.5 MG/0.5 ML SYRINGE IV (09:49)
[2024-01-02] MEDS: ONDANSETRON PF 4 MG/2 ML VIAL IV ×2 (09:55→16:52)
[2024-01-02] MEDS: LACTATED RINGER'S SOLUTION 1,000 ML 125 ML IV (09:59)
[2024-01-02] MEDS: HALOPERIDOL LACTATE 5 MG/ML VIAL IV (10:18)
--- NOTE | 2024-01-02 10:30 | PC.NURSE ---
0955- Patient c/o nausea. Patient medicated with Zofran .
--- NOTE | 2024-01-02 10:36 | PC.NURSE ---
0959- Patient c/o need to void. Patient placed on bedpan per patient request.
--- NOTE | 2024-01-02 10:40 | PC.NURSE ---
1018- Patient remains restless and nauseated. Medicated with Haldol per order. Patient voids scant amount of urine via bedpan. Bedpan removed and sergio-care given. Patient c/o being cold. Megha lewis applied
[2024-01-02] MEDS: HYDROCODONE/ACET 5-325 MG TABLET 2 TAB PO (14:03)
[2024-01-02 15:43] LABS: Hematocrit 36.8 % (36.0-48.0); Hemoglobin 12.1 g/dL (12.0-16.0); Mean Corpuscular HGB Conc 32.9 g/dL (29.9-35.2); Mean Corpuscular Hemoglobin 30.1 pg (26.7-34.0); Mean Corpuscular Volume 91.5 fL (81.0-99.0); Mean Platelet Volume 9.7 fL (9.5-13.5); Platelet Count 310 10^3/uL (150-450); Red Blood Count 4.02 10^6/uL (4.20-5.40); Red Cell Distribution Width 11.5 % (11.0-15.0); White Blood Count 13.2 10^3/uL (4.0-11.0)
[2024-01-02 15:58] LABS: Band Neutrophils Absolute 0.1 10^3/uL (0.0-0.3); Basophils Abs Manual 0.13 10^3/uL (0.00-0.10); Lymphocytes Absolute Manual 0.92 10^3/uL (1.20-3.80); Monocytes Absolute Manual 0.66 10^3/uL (0.30-0.80); Segmented Neut Absolute Manual 11.35 10^3/uL (1.4-6.5)
== END 2024-01-02 19:13 | disposition home or self-care (01) ==
LOC: SURGOUT 09:27 → MS 10:59
PROVIDERS: Visit Provider Obstetrics & Gynecology
PROC: (CPT 840; principal; 2024-01-02 07:30)
DX: N94.10 Unspecified dyspareunia (principal); N92.0 Excessive and frequent menstruation with regular cycle; R10.2 Pelvic and perineal pain; N94.6 Dysmenorrhea, unspecified; Z98.51 Tubal ligation status; Z87.891 Personal history of nicotine dependence
CPT/HCPCS: 58570; 36415; 80307; 84702; 85007; 85025; 85027; 88307; J0131; J0744; J1100; J1171; J1630; J1836; J1885; J2250; J2405; J2704; J3010